=== PATIENT | male | born 1935 | race Caucasian/White ===

== ENCOUNTER 2017-12-30 08:39 | Emergency (ER) | payer MEDICARE, OTHER ==
[~2017-12-30] VITALS: Ht 175.3 cm; Wt 68.0 kg
[~2017-12-30 08:39] MED LIST: ALLO100T PO; CARV3.12 PO; CEPH500C3 PO; DUONSOL2 NEB; FISH1000 PO; GLYB1TAB50 PO; MACR100C PO; NITR0.4S SL; OMEP20TA OR; PROS5TAB2 PO; PYRI200T4 PO; SIMV40TA PO; TAMS0.4C67 PO
[2017-12-30 08:43] VITALS: BP 147/69; PULSE 71; RESP 22; TEMP 97.5; O2SAT 98
[2017-12-30] MEDS ORDERED: SODIUM CHLORIDE 0.9% FLUSH 10 ML FLUSH IVF PRN (09:00)
[2017-12-30] MEDS ORDERED: methylPREDNISolone SOD SUCC 125 MG/2 ML VIAL IV PUSH ONE (09:00)
--- NOTE | 2017-12-30 09:08 | PD ---
HPI Chief Complaint: Cold / Flu Symptoms Time Seen by Provider: 08:59 Travel History International Travel<30 days: No Contact w/Intl Traveler<30days: No Traveled to known affect area: No History of Present Illness HPI The patient is a 82-year-old male who presents to the emergency department for shortness of breath and cough of 3 days' duration. The patient notes a productive cough producing brown sputum for last 3 days which shortness of breath and wheezing. The patient does have a history of bronchitis and pneumonia. The patient has a remote history of lung carcinoma and underwent partial resection of the right upper lung in the . He quit smoking 30 years ago. He notes subjective fevers and occasional diarrhea but denies any nausea, vomiting, or abdominal pain. He does have a history of pacemaker placement, hypertension, and peripheral vascular disease. The patient is followed by his residential worker, Dr. Akshat Harry, his carpenter assistant installer Dr. Horan, and his primary physician. The patient's symptoms are mild to moderate, there are no current alleviating or exacerbating factors. He denies any diffuse myalgias, arthralgias, or lower extremity edema. He denies any history of pulmonary embolism or DVT. PFSH Past Medical History Hx Anticoagulant Therapy: Yes (BABY ASA DAILY) Atrial Fibrillation: Yes Cancer: Yes (LUNG AND BLADDER, throat) Cardiovascular Problems: Yes (CHOL) High Cholesterol: Yes COPD: Yes Coronary Artery Disease: Yes Diabetes: Yes Diminished Hearing: Yes Endocrine: No Gastrointestinal Disorders: No Glaucoma: No Hepatitis: No Hiatal Hernia: No Hypertension: Yes Immune Disorder: No Musculoskeletal: Yes (arthritis) Neurologic: No Reproductive: No Respiratory: Yes (COPD) Thyroid Disease: No Past Surgical History AICD: Yes Cardiac Surgery: Yes (CABG) Coronary Artery Bypass Graft: Yes ("TRIPLE" "ABOUT 8 YEARS AGO.") Endocrine Surgery: No Genitourinary Surgery: Yes (BLADDER BIOPSY) Joint Replacement: No Neurologic Surgery: No Pacemaker: Yes Thoracic Surgery: Yes (RUL) Other Surgery: Yes (RIGHT LUNG LOBECTOMY "ABOUT 8 YEARS AGO.") Social History Alcohol Use: No Tobacco Use: No (QUIT 20 YEARS AGO) Substance Use: No Allergies-Medications (Allergen,Severity, Reaction): Coded Allergies: No Known Allergies (Verified Adverse Reaction, Unknown, 12/30/17) Reported Meds & Prescriptions Reported Meds & Active Scripts Active Pyridium (Phenazopyridine HCl) 200 Mg Tab 200 Mg PO Q8 PRN Keflex (Cephalexin Monohydrate) 500 Mg Cap 500 Mg PO Q8 Reported Macrobid (Nitrofurantoin Macrocrystals) 100 Mg Cap 100 Mg PO BID Carvedilol 3.125 mg (Carvedilol) 3.125 Mg Tab 1 Tab PO BID Allopurinol 100 Mg Tab 100 Mg PO DAILY Nitrostat (Nitroglycerin) 0.4 Mg Subl 0.4 Mg SL PRN 1 TAB SL EVERY 5 MINS X 3 PRN CHEST PAIN Resp: Albuterol 2.5 Mg/Ipratropium 0.5 Mg (Albuterol/Ipratropium) 1 Amp Nebu 1 Amp NEB DAILY Simvastatin 40 Mg Tab 20 Mg PO HS Fish Oil 1,000 Mg Cap 1,200 Mg PO BID Flomax (Tamsulosin HCl) 0.4 Mg Cap 0.4 Mg PO DAILY Proscar (Finasteride) 5 Mg Tab 5 Mg PO DAILY Glyburide 2.5 Mg Tab 2.5 Mg PO BID Omeprazole 20 mg (Omeprazole) 20 Mg Tab 20 Mg OR DAILY Review of Systems Except as stated in HPI: all other systems reviewed are Neg General / Constitutional: Positive: Fever (subjective) HENT: Positive: Congestion, No: Lightheadedness Cardiovascular: No: Chest Pain or Discomfort Respiratory: Positive: Cough, Shortness of Breath, Wheezing Gastrointestinal: Positive: Diarrhea, No: Nausea, Vomiting, Abdominal Pain Musculoskeletal: No: Myalgias, Edema Physical Exam Narrative GENERAL: Awake, alert, pleasant 82-year-old male who appears his stated age and is in no acute respiratory distress. SKIN: Focused skin assessment warm/dry. HEAD: Atraumatic. Normocephalic. EYES: Pupils equal and round. No scleral icterus. No injection or drainage. ENT: No nasal bleeding or discharge. Mucous membranes pink and moist. NECK: Trachea midline. No JVD. CARDIOVASCULAR: Regular rate and rhythm. No murmur appreciated. Heart rate in the 80s. Well-healed scar over the right lateral chest wall and scapular. RESPIRATORY: No accessory muscle use. Few rhonchi noted in the left base. GASTROINTESTINAL: Abdomen soft, non-tender, nondistended. No rebound tenderness. MUSCULOSKELETAL: No obvious deformities. No clubbing. No cyanosis. No edema. NEUROLOGICAL: Awake and alert. No obvious cranial nerve deficits. Motor grossly within normal limits. Normal speech. PSYCHIATRIC: Appropriate mood and affect; insight and judgment normal. Data Data Last Documented VS Vital Signs Date Time Temp Pulse Resp B/P (MAP) Pulse Ox O2 Delivery O2 Flow Rate FiO2 12/30/17 08:43 97.5 71 22 147/69 (95) 98 Orders Orders Complete Blood Count With Diff (12/30/17 08:59) Comprehensive Metabolic Panel (12/30/17 08:59) B-Type Natriuretic Peptide (12/30/17 08:59) Magnesium (Mg) (12/30/17 08:59) Ckmb (Isoenzyme) Profile (12/30/17 08:59) Troponin I (12/30/17 08:59) Influenzae A/B Antigen (12/30/17 08:59) Iv Access Insert/Monitor (12/30/17 08:59) Electrocardiogram (12/30/17 08:59) Ecg Monitoring (12/30/17 08:59) Oximetry (12/30/17 08:59) Oxygen Administration (12/30/17 08:59) Chest, Single Ap (12/30/17 08:59) Sodium Chloride 0.9% Flush (Ns Flush) (12/30/17 09:00) Methylprednisolone So Succ Inj (Solumedr (12/30/17 09:00) Albuterol-Ipratropium Neb (Duoneb Neb) (12/30/17 09:00) Ceftriaxone Inj (Rocephin Inj) (12/30/17 09:45) Azithromycin Inj (Zithromax Inj) (12/30/17 09:45) Lactic Acid (12/30/17 09:36) Ed Discharge Order (12/30/17 10:56) Labs Laboratory Tests Test 12/30/17 09:35 12/30/17 09:50 White Blood Count 11.1 TH/MM3 Red Blood Count 4.40 MIL/MM3 Hemoglobin 11.1 GM/DL Hematocrit 35.6 % Mean Corpuscular Volume 80.8 FL Mean Corpuscular Hemoglobin 25.3 PG Mean Corpuscular Hemoglobin Concent 31.3 % Red Cell Distribution Width 17.6 % Platelet Count 168 TH/MM3 Mean Platelet Volume 8.1 FL Neutrophils (%) (Auto) 85.2 % Lymphocytes (%) (Auto) 4.2 % Monocytes (%) (Auto) 10.1 % Eosinophils (%) (Auto) 0.4 % Basophils (%) (Auto) 0.1 % Neutrophils # (Auto) 9.5 TH/MM3 Lymphocytes # (Auto) 0.5 TH/MM3 Monocytes # (Auto) 1.1 TH/MM3 Eosinophils # (Auto) 0.0 TH/MM3 Basophils # (Auto) 0.0 TH/MM3 CBC Comment DIFF FINAL Differential Comment Blood Urea Nitrogen 19 MG/DL Creatinine 1.20 MG/DL Random Glucose 180 MG/DL Total Protein 7.4 GM/DL Albumin 3.4 GM/DL Calcium Level 8.3 MG/DL Magnesium Level 2.2 MG/DL Alkaline Phosphatase 69 U/L Aspartate Amino Transf (AST/SGOT) 9 U/L Alanine Aminotransferase (ALT/SGPT) 21 U/L Total Bilirubin 1.2 MG/DL Sodium Level 139 MEQ/L Potassium Level 4.2 MEQ/L Chloride Level 106 MEQ/L Carbon Dioxide Level 23.2 MEQ/L Anion Gap 10 MEQ/L Estimat Glomerular Filtration Rate 58 ML/MIN Total Creatine Kinase 44 U/L Troponin I 0.02 NG/ML B-Type Natriuretic Peptide 1169 PG/ML Lactic Acid Level 2.5 mmol/L MDM Medical Decision Making Medical Screen Exam Complete: Yes Emergency Medical Condition: Yes Medical Record Reviewed: Yes Interpretation(s) EKG reveals electronic ventricular pacemaker. No further analysis noted. Last Impressions Chest X-Ray 12/30/17 0859 Signed Impressions: Service Date/Time: Saturday, December 30, 2017 09:02 - CONCLUSION: 1. Patchy right basilar airspace disease most characteristic of bronchopneumonia or aspiration with small right effusion. Cardiomegaly with pacer leads as above. Pablito Langston MD Date/Time Source Procedure Growth Status 12/30/17 09:38 Nasal Aspirate Influenza Types A,B Antigen (GUDELIA) - Final NEGATIVE FOR FLU A AND B ANTIGEN.... Complete Laboratory Tests Test 12/30/17 09:35 12/30/17 09:50 White Blood Count 11.1 TH/MM3 Red Blood Count 4.40 MIL/MM3 Hemoglobin 11.1 GM/DL Hematocrit 35.6 % Mean Corpuscular Volume 80.8 FL Mean Corpuscular Hemoglobin 25.3 PG Mean Corpuscular Hemoglobin Concent 31.3 % Red Cell Distribution Width 17.6 % Platelet Count 168 TH/MM3 Mean Platelet Volume 8.1 FL Neutrophils (%) (Auto) 85.2 % Lymphocytes (%) (Auto) 4.2 % Monocytes (%) (Auto) 10.1 % Eosinophils (%) (Auto) 0.4 % Basophils (%) (Auto) 0.1 % Neutrophils # (Auto) 9.5 TH/MM3 Lymphocytes # (Auto) 0.5 TH/MM3 Monocytes # (Auto) 1.1 TH/MM3 Eosinophils # (Auto) 0.0 TH/MM3 Basophils # (Auto) 0.0 TH/MM3 CBC Comment DIFF FINAL Differential Comment Blood Urea Nitrogen 19 MG/DL Creatinine 1.20 MG/DL Random Glucose 180 MG/DL Total Protein 7.4 GM/DL Albumin 3.4 GM/DL Calcium Level 8.3 MG/DL Magnesium Level 2.2 MG/DL Alkaline Phosphatase 69 U/L Aspartate Amino Transf (AST/SGOT) 9 U/L Alanine Aminotransferase (ALT/SGPT) 21 U/L Total Bilirubin 1.2 MG/DL Sodium Level 139 MEQ/L Potassium Level 4.2 MEQ/L Chloride Level 106 MEQ/L Carbon Dioxide Level 23.2 MEQ/L Anion Gap 10 MEQ/L Estimat Glomerular Filtration Rate 58 ML/MIN Total Creatine Kinase 44 U/L Troponin I 0.02 NG/ML B-Type Natriuretic Peptide 1169 PG/ML Lactic Acid Level 2.5 mmol/L Differential Diagnosis Differential diagnosis includes bronchitis, pneumonia, pulmonary edema, congestive heart failure, acute coronary syndrome, pleural effusion, influenza, viral syndrome, deconditioning, cardiomyopathy. Narrative Course IV was established, labs are drawn and sent, and the patient was placed on cardiac telemetry monitoring and continuous pulse oximetry monitoring. EKG was ordered and interpreted. Chest x-rays obtained. The patient was administered Solu-Medrol 125 mg intravenously and duo nebs. The patient's BNP was elevated at 1169, lactic acid mildly elevated at 2.5, troponin 0.02. BUN was slightly elevated and 19. Chest x-ray does reveal right bronchopneumonia small pleural effusion. BNP is elevated, patient has had an elevated BNP greater than 1000 pounds, 2010 when the EMR was reviewed. The patient was reevaluated at 10:52 AM. The patient's symptoms have improved. I did have a discussion with the patient regarding the elevated BNP and possible CHF not seen on x-ray versus chronic cardiomyopathy. He does have symptoms consistent with pneumonia. I had a discussion with the patient and discussed 23 hour observation, I offered 23 hour observation for IV steroids and nebulizers. However, the patient states he has a nebulizer at home. The patient would prefer to try outpatient treatment, I believe this is reasonable as he is not oxygen dependent at this time and O2 sat is 98%. I did have a discussion regarding when to return including increasing symptoms, inability to tolerate medications at home, patient is agreeable to return if these symptoms persist or worsen. Diagnosis Primary Impression: Bronchopneumonia Additional Impression: Dyspnea Qualified Codes: R06.00 - Dyspnea, unspecified Patient Instructions: General Instructions Additional Instructions: please provide the patient a copy of his x-ray results and lab results at discharge. Medications as directed. Return if symptoms worsen or progress. Follow-up with your primary physician and residential worker. Med/Other Pt SpecificInfo: Prescription(s) given Scripts Azithromycin (Zithromax Z-Estuardo) 250 Mg Dspk 250 MG PO DIRECTED for Infection, #1 DSPK 0 Refills 500 MG (2 tabs) day 1, then 1 tab days 2-5. Prov: Tato August MD 12/30/17 Albuterol Neb (Albuterol Neb) 2.5 Mg/3 Ml Neb 2.5 MG NEB Q4HR NEB Y for SHORTNESS OF BREATH, #60 NEBULE 0 Refills Prov: Tato August MD 12/30/17 Prednisone (Prednisone) 20 Mg Tab 40 MG PO DAILY for 5 Days, #10 TAB 0 Refills Take 40 mg (2 tablets) daily for 5 days Prov: Tato August MD 12/30/17 Disposition: 01 DISCHARGE HOME Condition: Stable Tato August MD Dec 30, 2017 09:08
[2017-12-30] MEDS: RESP: ALBUTEROL 2.5 MG/IPRATROPIUM 0.5 MG NEB (SCH) INH (09:13)
--- NOTE | 2017-12-30 09:29 | RADRPT ---
EXAM DATE/TIME: 12/30/2017 09:02 [facility] COMPARISON: No previous studies available for comparison. INDICATIONS : Shortness of breath. MEDICAL HISTORY : Hypertension. Chronic obstructive pulmonary disease. Diabetes mellitus type II. Coronary artery d isease. Lung cancer. Bladder cancer. Afib. SURGICAL HISTORY : Pacemaker. CABG. Right lobectomy. Defibrillator. ENCOUNTER: Initial ACUITY: 1 day PAIN SCORE: 0/10 LOCATION: Bilateral chest FINDINGS: A single view of the chest demonstrates a patchy right basilar airspace disease with small right effu keyana. Differential diagnosis includes bronchopneumonia with parapneumonic effusion. Minimal left basi lar scarring. Pacer leads overlie right atrium, right ventricle and coronary sinus. Previous sternoto my. No pneumothorax. CONCLUSION: 1. Patchy right basilar airspace disease most characteristic of bronchopneumonia or aspiration with s mall right effusion. Cardiomegaly with pacer leads as above. Pablito Langston MD on December 30, 2017 at 9:22 Board Certified Radiologist. This report was verified electronically.
[2017-12-30 09:35] VITALS: BP 116/70; PULSE 80; RESP 16; TEMP 97.5; O2SAT 97; O2SAT 98
[2017-12-30] MEDS ORDERED: cefTRIAXone INJ 1,000 MG in SODIUM CHLORIDE 0.9% INJ 100 ML IV ONE (09:45)
[2017-12-30] MEDS ORDERED: AZITHROMYCIN INJ 500 MG in SODIUM CHLOR 0.9% 250 ML INJ 250 ML IV ONE (09:45)
[2017-12-30 10:06] LABS: AUTOMATED NEUTROPHIL # 9.5 TH/MM3 (1.8-7.7); BASOPHIL % 0.1 % (0.0-2.0); EOSINOPHIL % 0.4 % (0.0-4.0); HEMATOCRIT 35.6 % (39.0-51.0); HEMOGLOBIN 11.1 GM/DL (13.0-17.0); LYMPH % 4.2 % (9.0-44.0); LYMPHOCYTE # 0.5 TH/MM3 (1.0-4.8); MEAN CELL VOLUME 80.8 FL (80.0-100.0); MEAN CORPUSCULAR HEMOGLOBIN 25.3 PG (27.0-34.0); MEAN CORPUSCULAR HGB CONC 31.3 % (32.0-36.0); MEAN PLATELET VOLUME 8.1 FL (7.0-11.0); MONO % 10.1 % (0.0-8.0); MONOCYTE # 1.1 TH/MM3 (0-0.9); NEUT % 85.2 % (16.0-70.0); PLATELET COUNT 168 TH/MM3 (150-450); RED CELL DISTRIBUTION WIDTH 17.6 % (11.6-17.2); WHITE BLOOD COUNT 11.1 TH/MM3 (4.0-11.0)
[2017-12-30 10:08] LABS: CHLORIDE 106 MEQ/L (98-107); SODIUM (NA) 139 MEQ/L (136-145)
[2017-12-30 10:14] LABS: ALBUMIN 3.4 GM/DL (3.4-5.0); BICARBONATE 23.2 MEQ/L (21.0-32.0); CALCIUM 8.3 MG/DL (8.5-10.1); MAGNESIUM 2.2 MG/DL (1.5-2.5)
[2017-12-30 10:15] LABS: GLUCOSE,RANDOM 180 MG/DL (74-106)
[2017-12-30 10:16] LABS: BLOOD UREA NITROGEN 19 MG/DL (7-18)
[2017-12-30 10:18] LABS: AST (GOT) 9 U/L (15-37); GLOMERULAR FILTRATION RATE 58 ML/MIN (>89)
[2017-12-30 10:19] LABS: TOTAL PROTEIN 7.4 GM/DL (6.4-8.2)
[2017-12-30 10:21] LABS: ALKALINE PHOSPHATASE 69 U/L (45-117); ALT (GPT) 21 U/L (12-78)
[2017-12-30 10:22] LABS: TOTAL BILIRUBIN ADULT 1.2 MG/DL (0.2-1.0); TROPONIN I 0.02 NG/ML (0.02-0.05)
[2017-12-30 10:59] VITALS: BP 112/68; PULSE 78; RESP 16; O2SAT 98
[2017-12-30] MEDS ORDERED: ZITHTAB PO (10:59)
[2017-12-30] MEDS ORDERED: ALBU0.08 NEB (10:59)
[2017-12-30] MEDS ORDERED: PRED20 PO (10:59)
[2017-12-30 12:15] VITALS: BP 97/64; PULSE 70; RESP 20; O2SAT 98
--- NOTE | 2017-12-30 19:12 | EKG ---
Date Performed: 12/30/2017 Time Performed: 09:10:02 PTAGE: 82 years EKG: ELECTRONIC VENTRICULAR PACEMAKER ABNORMAL RHYTHM ECG PREVIOUS TRACING : 04/27/2015 06.17 Since the previous tracing, no significant change noted DOCTOR: Geovanni Lozano Interpretating Date/Time 12/30/2017 19:09:57
== END 2017-12-30 12:15 | disposition home or self-care (01) ==
LOC: PHED 08:39
DX: J18.0 Bronchopneumonia, unspecified organism (principal); R06.00 Dyspnea, unspecified; I10 Essential (primary) hypertension; I48.91 Unspecified atrial fibrillation; J44.9 Chronic obstructive pulmonary disease, unspecified; I25.10 Atherosclerotic heart disease of native coronary artery without angina pectoris; R94.31 Abnormal electrocardiogram [ECG] [EKG]; Z95.0 Presence of cardiac pacemaker; Z85.118 Personal history of other malignant neoplasm of bronchus and lung
CPT/HCPCS: 71045; 80053; 82550; 83605; 83735; 83880; 84484; 85025; 87804; 93005; 94640; 94664; 96365; 96367; 96375; 99285; J0456; J0696; J2930; J7050

== ENCOUNTER 2018-01-04 05:01 | Inpatient (IN) | payer MEDICARE, OTHER ==
[2018-01-04] VITALS (28 sets, daily range): BP systolic 82–121; BP diastolic 50–70; PULSE 69–74; RESP 14–25; TEMP 93.3–98.9; O2SAT 92–100
[~2018-01-04] VITALS: Ht 175.3 cm; Wt 70.5 kg
[~2018-01-04 05:01] MED LIST changes: +ALBU0.08 NEB; +PRED20 PO; +ZITHTAB PO
[2018-01-04] MEDS ORDERED: PROPOFOL 500 MG/50 ML INJ 50 ML ONE (05:05)
[2018-01-04] MEDS ORDERED: CARV3.125 PO (05:17)
[2018-01-04] MEDS ORDERED: PROS5TAB PO (05:17)
[2018-01-04] MEDS ORDERED: ALLO100T PO (05:17)
[2018-01-04] MEDS ORDERED: TAMS5CAP PO (05:21)
[2018-01-04] MEDS ORDERED: OMEP20TA93 PO (05:21)
[2018-01-04] MEDS ORDERED: NITR0.4S SL (05:21)
[2018-01-04] MEDS ORDERED: GLYB2.5T3 PO (05:21)
[2018-01-04] MEDS ORDERED: SIMV20TA PO (05:21)
[2018-01-04] MEDS ORDERED: FISHCAP4 PO (05:21)
--- NOTE | 2018-01-04 05:33 | PD ---
HPI Chief Complaint: Respiratory Distress Time Seen by Provider: 05:18 Travel History International Travel<30 days: No Contact w/Intl Traveler<30days: No History of Present Illness HPI Patient is an 82-year-old male presents the emergency department for evaluation of impending respiratory failure. He was brought in by EMS and was intubated emergently in the field for a saturation of 60%. According to EMS he was just here yesterday that was diagnosed with pneumonia and had been opted to be treated as an outpatient. Apparently he was recommended for admission but he did not want to stay. According to EMS when they intubated him in the field the patient had significant blood in his oropharynx. 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 He also has a history of partial pneumonectomy on the right upper lobe. Shortly after his arrival his significant other has arrived and states that they went to bed he had been coughing and stating was not feeling as well and he awoke about 4:00 in the morning stating he was having severe trouble breathing. Shortly after that EMS was called and seeing a patient in impending respiratory failure they asked to intubate him and he nodded his head yes. Remainder of his history is limited as he is intubated. PFSH Past Medical History Hx Anticoagulant Therapy: Yes (BABY ASA DAILY) Atrial Fibrillation: Yes Cancer: Yes (LUNG AND BLADDER, throat) Cardiovascular Problems: Yes (CHOL) High Cholesterol: Yes COPD: Yes Coronary Artery Disease: Yes Diabetes: Yes Diminished Hearing: Yes Endocrine: No Gastrointestinal Disorders: No Glaucoma: No Hepatitis: No Hiatal Hernia: No Hypertension: Yes Immune Disorder: No Musculoskeletal: Yes (arthritis) Neurologic: No Reproductive: No Respiratory: Yes (COPD) Thyroid Disease: No Past Surgical History AICD: Yes Cardiac Surgery: Yes (CABG) Coronary Artery Bypass Graft: Yes ("TRIPLE" "ABOUT 8 YEARS AGO.") Endocrine Surgery: No Genitourinary Surgery: Yes (BLADDER BIOPSY) Joint Replacement: No Neurologic Surgery: No Pacemaker: Yes Thoracic Surgery: Yes (RUL) Other Surgery: Yes (RIGHT LUNG LOBECTOMY "ABOUT 8 YEARS AGO.") Social History Alcohol Use: No Tobacco Use: No (QUIT 20 YEARS AGO) Substance Use: No Allergies-Medications (Allergen,Severity, Reaction): Coded Allergies: No Known Allergies (Verified Adverse Reaction, Unknown, 01/04/18) Reported Meds & Prescriptions Reported Meds & Active Scripts Active Albuterol Neb (Albuterol Sulfate) 2.5 Mg/3 Ml Neb 2.5 Mg NEB Q4HR NEB PRN Prednisone 20 Mg Tab 40 Mg PO DAILY 5 Days Take 40 mg (2 tablets) daily for 5 days Reported Entresto (Sacubitril-Valsartan) 24-26 Mg Tab 1 Tab PO BID Bumetanide 1 Mg Tab 1 Mg PO DAILY Omeprazole 20 Mg Tab 20 Mg PO DAILY Nitrostat SL (Nitroglycerin) 0.4 Mg Subl 0.4 Mg SL DIRECTED PRN 1 tablet under the tongue as needed for chest pain. Repeat every 5 minutes for a total of 3 DOSES or call 911 if NO relief. Glyburide 2.5 Mg Tab 2.5 Mg PO BID Take with meals at the same time each day Simvastatin 20 Mg Tab 20 Mg PO DAILY Flomax (Tamsulosin HCl) 0.4 Mg Cap 0.4 Mg PO HS Proscar (Finasteride) 5 Mg Tab 5 Mg PO DAILY Do not crush. Coreg (Carvedilol) 3.125 Mg Tab 3.125 Mg PO BID Allopurinol 100 Mg Tab 100 Mg PO DAILY Review of Systems ROS Limitations: Intubated Physical Exam Narrative GENERAL: Well-developed, elderly male, moving all 4 extremities being bagged to ET tube. SKIN: Focused skin assessment cold and dry. HEAD: Atraumatic. Normocephalic. EYES: Pupils equal and round. No scleral icterus. No injection or drainage. ENT: No nasal bleeding or discharge. Mucous membranes pink and moist. Intubated with 7/2 ET tube. NECK: Trachea midline. No JVD. CARDIOVASCULAR: Regular rate and rhythm. No murmur appreciated. RESPIRATORY: No accessory muscle use. Clear to auscultation. Breath sounds equal bilaterally. GASTROINTESTINAL: Abdomen soft, non-tender, nondistended. Hepatic and splenic margins not palpable. MUSCULOSKELETAL: No obvious deformities. No clubbing. No cyanosis. No edema. NEUROLOGICAL: Awake moving all 4 extremities with fairly nonpurposeful movement. Will not open his eyes to command, will not follow commands. Data Data Last Documented VS Vital Signs Date Time Temp Pulse Resp B/P (MAP) Pulse Ox O2 Delivery O2 Flow Rate FiO2 01/04/18 05:51 18 01/04/18 05:49 96 Auto-Vent 01/04/18 05:22 98.9 73 117/56 (76) 01/04/18 05:20 100 Orders Orders Propofol 500 Mg/50 Ml Inj (Diprivan 500 (01/04/18 05:05) Sepsis Workup Initiated (01/04/18 ) Complete Blood Count With Diff (01/04/18 05:18) Comprehensive Metabolic Panel (01/04/18 05:18) Prothrombin Time / Inr (Pt) (01/04/18 05:18) Act Partial Throm Time (Ptt) (01/04/18 05:18) Lactic Acid Sepsis Protocol (01/04/18 05:18) Magnesium (Mg) (01/04/18 05:18) Phosphorus (Po4) (01/04/18 05:18) Lipase (01/04/18 05:18) Ckmb (Isoenzyme) Profile (01/04/18 05:18) Troponin I (01/04/18 05:18) Urinalysis - C+S If Indicated (01/04/18 05:18) Blood Culture (01/04/18 05:18) Chest, Single Ap (01/04/18 05:18) Blood Glucose (01/04/18 05:18) Ecg Monitoring (01/04/18 05:18) Iv Access Insert/Monitor (01/04/18 05:18) Oximetry (01/04/18 05:18) Oxygen Administration (01/04/18 05:18) Arterial Blood Gas (Abg) (01/04/18 ) Vancomycin Inj (Vancomycin Inj) (01/04/18 05:45) Piperacil-Tazo 4.5 Gm Premix (Zosyn 4.5 (01/04/18 05:45) Allopurinol (Zyloprim) (01/04/18 09:00) Bumetanide (Bumetanide) (01/04/18 09:00) Carvedilol (Coreg) (01/04/18 09:00) Finasteride (Proscar) (01/04/18 09:00) Glyburide (Diabeta) (01/04/18 07:00) Sacubitril-Valsartan 24-26 Mg (Entresto (01/04/18 09:00) Tamsulosin (Flomax) (01/04/18 21:00) Pravastatin (Pravachol) (01/04/18 09:00) Blood Glucose Goal (Criteria) (01/04/18 05:49) Hypoglycemia 70 Mg/Dl Or < (01/04/18 05:49) Notify Dr: Other (01/04/18 05:49) Dextrose 50% In Terry (Vial) Inj (D50w (Vi (01/04/18 06:00) Glucagon Inj (Glucagon Inj) (01/04/18 06:00) Insulin Human Reg Supp Scale (Novolin R (01/04/18 08:00) Admit To Inpatient (01/04/18 ) Code Status (01/04/18 05:49) Vital Signs (Adult) JACOBY.Q1H (01/04/18 05:49) Activity Bed Rest (01/04/18 05:49) Elevate Head Of Bed (01/04/18 05:49) Neuro Checks . ORDERED (01/04/18 05:49) Intake + Output Q1H (01/04/18 05:49) Sodium Chlor 0.9% 1000 Ml Inj (Ns 1000 M (01/04/18 05:49) Sodium Chloride 0.9% Flush (Ns Flush) (01/04/18 06:00) Sodium Chloride 0.9% Flush (Ns Flush) (01/04/18 09:00) Acetaminophen (Tylenol) (01/04/18 06:00) Famotidine Inj (Pepcid Inj) (01/04/18 09:00) Ondansetron Inj (Zofran Inj) (01/04/18 06:00) Temazepam (Restoril) (01/04/18 06:00) Albuterol-Ipratropium Neb (Duoneb Neb) (01/04/18 08:00) Albuterol-Ipratropium Neb (Duoneb Neb) (01/04/18 06:00) Complete Blood Count With Diff (01/05/18 04:00) Comprehensive Metabolic Panel (01/05/18 04:00) Troponin I (01/04/18 05:49) Troponin I (01/04/18 11:49) Act Partial Throm Time (Ptt) (01/05/18 04:00) Prothrombin Time / Inr (Pt) (01/05/18 04:00) Magnesium (Mg) (01/05/18 04:00) Phosphorus (Po4) (01/05/18 04:00) Lactic Acid (01/05/18 04:00) Blood Culture (01/04/18 05:49) Sputum Culture And Gram Stain (01/04/18 05:49) Chest, Single Ap (01/05/18 ) Electrocardiogram (01/04/18 05:49) Electrocardiogram (01/04/18 11:49) Pt Request For Service (01/04/18 05:49) Farm Equipment Service Technician / Telemetry JACOBY.Q8H (01/04/18 05:49) Heparin Inj (Heparin Inj) (01/04/18 06:00) Scd Bilateral/Knee High JACOBY.BID (01/04/18 05:49) [place] Bilateral/Knee High JACOBY.QSHIFT (01/04/18 05:49) ^ Initiate Protocol (01/04/18 05:49) Instruction (01/04/18 05:49) [facility] (01/04/18 06:00) Chlorhexidine 2% Cloth (Chlorhexidine 2% (01/05/18 04:00) Chlorhexidine 2% Cloth (Chlorhexidine 2% (01/04/18 06:00) Mrsa Pcr Surveillance (01/04/18 05:49) Docusate Sodium-Senna (Azra-Colace) (01/04/18 09:00) Magnesium Hydroxide Liq (Milk Of Magnesi (01/04/18 06:00) Sennosides (Senokot) (01/04/18 06:00) Bisacodyl Supp (Dulcolax Supp) (01/04/18 06:00) Lactulose Liq (Lactulose Liq) (01/04/18 06:00) Piperacil-Tazo 4.5 Gm Premix (Zosyn 4.5 (01/04/18 12:00) Vancomycin Consult Pharmacy (Vancomycin (01/04/18 06:00) Methylprednisolone So Succ Inj (Solumedr (01/04/18 06:00) Oseltamivir (Tamiflu) (01/04/18 09:00) Inpatient Certification (01/04/18 ) Admit Order (Ed Use Only) (01/04/18 ) Labs Laboratory Tests Test 01/04/18 05:20 01/04/18 05:30 01/04/18 05:50 Urine Color YELLOW Urine Turbidity CLEAR Urine pH 5.5 Urine Specific [place] 1.015 Urine Protein TRACE mg/dL Urine Glucose (UA) 300 mg/dL Urine Ketones NEG mg/dL Urine Occult Blood NEG Urine Nitrite NEG Urine Bilirubin NEG Urine Urobilinogen LESS THAN 2.0 MG/DL Urine Leukocyte Esterase NEG Urine RBC 1 /hpf Urine WBC 1 /hpf Urine Squamous Epithelial Cells <1 /hpf Urine Hyaline Casts 12 /lpf Urine Mucus FEW /lpf Microscopic Urinalysis Comment CATH-CULT NOT IND White Blood Count 22.3 TH/MM3 Red Blood Count 4.96 MIL/MM3 Hemoglobin 12.2 GM/DL Hematocrit 40.1 % Mean Corpuscular Volume 80.9 FL Mean Corpuscular Hemoglobin 24.7 PG Mean Corpuscular Hemoglobin Concent 30.5 % Red Cell Distribution Width 18.8 % Platelet Count 278 TH/MM3 Mean Platelet Volume 7.9 FL Neutrophils (%) (Auto) 88.3 % Lymphocytes (%) (Auto) 7.9 % Monocytes (%) (Auto) 3.5 % Eosinophils (%) (Auto) 0.2 % Basophils (%) (Auto) 0.1 % Neutrophils # (Auto) 19.7 TH/MM3 Lymphocytes # (Auto) 1.8 TH/MM3 Monocytes # (Auto) 0.8 TH/MM3 Eosinophils # (Auto) 0.0 TH/MM3 Basophils # (Auto) 0.0 TH/MM3 CBC Comment DIFF FINAL Differential Comment Prothrombin Time 12.2 SEC Prothromb Time International Ratio 1.2 RATIO Activated Partial Thromboplast Time 22.1 SEC Blood Urea Nitrogen 29 MG/DL Creatinine 1.46 MG/DL Random Glucose 239 MG/DL Total Protein 6.8 GM/DL Albumin 3.4 GM/DL Calcium Level 9.0 MG/DL Phosphorus Level 4.8 MG/DL Magnesium Level 2.4 MG/DL Alkaline Phosphatase 133 U/L Aspartate Amino Transf (AST/SGOT) 25 U/L Alanine Aminotransferase (ALT/SGPT) 60 U/L Total Bilirubin 0.7 MG/DL Sodium Level 138 MEQ/L Potassium Level 4.0 MEQ/L Chloride Level 101 MEQ/L Carbon Dioxide Level 21.6 MEQ/L Anion Gap 15 MEQ/L Estimat Glomerular Filtration Rate 46 ML/MIN Lactic Acid Level 6.3 mmol/L Total Creatine Kinase 70 U/L Troponin I 0.04 NG/ML Lipase 502 U/L Blood Gas Puncture Site RT FEMORAL Blood Gas Patient Temperature 98.6 Blood Gas HCO3 20 mmol/L Blood Gas Base Excess -3.1 mmol/L Blood Gas Oxygen Saturation 97 % Arterial Blood pH 7.43 Arterial Blood Partial Pressure CO2 31 mmHg Arterial Blood Partial Pressure O2 135 mmHG Arterial Blood Oxygen Content 15.9 Vol % Arterial Blood Carboxyhemoglobin 1.3 % Arterial Blood Methemoglobin 0.4 % Blood Gas Hemoglobin 11.4 G/DL Oxygen Delivery Device VENTILATOR Blood Gas Ventilator Setting Blood Gas Inspired Oxygen 100 % MDM Medical Decision Making Medical Screen Exam Complete: Yes Emergency Medical Condition: Yes Differential Diagnosis Pneumonia, sepsis, hypoxic respiratory failure, hypercapnic respiratory failure , aspiration, blood aspiration Narrative Course Patient was room to the emergency department, initial saturations difficult to obtain as his fingers are fairly cold, were able to confirm upset with bag-valve -mask in the 80s, he was placed on vent and initial for 10 of inspiratory pressure 5 of PEEP with 100% FiO2, he demanded as much as 14 of inhibitory pressure with 10 of PEEP and 100% FiO2 to get his saturations up to 98%. He certainly has ards by definition on his ABG. No significant hypercapnia. The patient chest x-ray does show that he is having improving aeration in the prior pneumonia seen in the right lower lung field, there is significant new infiltration of the left lung which appears to encompass both the upper and lower lung. He does have lactic acidemia with a lactic acid of 6. White count is 23,000 left shift, this meets criteria for severe sepsis bordering on septic shock. 30 cc/kg bolus was started, vancomycin and Zosyn. Blood cultures drawn and sent. Initially blood pressure is normal even hypertensive, had to have multiple doses of propofol which dropped his blood pressure down lowest map was 66. Fluid resuscitation still in process this is not requiring pressors at this time. NG tube was placed in this patient's airway was suctioned and no blood was removed from suctioning the patient while he was in the emergency department. His significant other was updated, I tried to explain that he is very sick but I do not think she has a full grasp of his illness at this time. She states that she has health care surrogate seen by his living well however she cannot produce these papers now we do not have them on file. I have asked her after she speaks with the steel rigger this morning to try and find these papers at home. Patient is significantly ill discussed with Dr. Cummings for admission to the ICU. Critical Care Narrative Aggregate critical care time was 35 minutes. Time to perform other separately billable procedures was not included in the critical care time. My time did not include minutes spent treating any other patients simultaneously or on activities that did not directly contribute to the patient's treatment. The services I provided to this patient were to treat and/or prevent clinically significant deterioration that could result in: , disability, organ failure I provided critical care services requiring my management, as noted below: Chart data review, documentation time, medication orders and management, vital sign assessments/reviewing monitor data, ordering and reviewing lab tests, ordering and interpreting/reviewing x-rays and diagnostic studies, care of the patient and discussion of the patient with the admitting physicians. Diagnosis Primary Impression: Severe sepsis Additional Impressions: Pneumonia Acute respiratory failure with hypoxia ARDS (adult respiratory distress syndrome) Admitting Information Admitting Physician Requests: Admit Condition: Critical Shahriar Yip MD Jan 04, 2018 05:33
[2018-01-04] MEDS ORDERED: SACU1TAB PO (05:42)
[2018-01-04] MEDS ORDERED: BUME1TAB PO (05:42)
[2018-01-04] MEDS ORDERED: PIPERACIL-TAZO 4.5 GM PREMIX 100 ML IV ONE (05:45)
[2018-01-04] MEDS ORDERED: VANCOMYCIN INJ 1,000 MG in SODIUM CHLOR 0.9% 250 ML INJ 250 ML IV ONE (05:45)
--- NOTE | 2018-01-04 05:45 | HHI.HP ---
HPI Service Critical Care Medicine Primary Care Physician Non-Staff Admission Diagnosis Diagnosis: Travel History International Travel<30 Days: No Contact w/Intl Traveler <30 Da: No Traveled to Known Affected Are: No History of Present Illness 82-year-old gentleman who was seen a few days ago at [place] emergency department, with complaints of respiratory distress, diagnosed with pneumonia, at that time he improved and didn't want to be hospitalized and was discharged , returns today with acute respiratory failure, and worsening pneumonia. Per EMT report his O2 sats at home were in 60s and he was intubated in the field for acute respiratory failure. Review of Systems ROS Unobtainable patient sedated and intubated Past Family Social History Allergies: Coded Allergies: No Known Allergies (Verified Adverse Reaction, Unknown, 01/04/18) Past Medical History COPD Lung cancer status post right upper lobectomy Laryngeal cancer - currently undergoing radiation therapy History of bladder cancer Diabetes mellitus Coronary artery disease status post CABG Hypertension Atrial fibrillation Congestive heart failure Status postcardiac ablation Past Surgical History AICD pacemaker and lobectomy Reported Medications Reported Meds & Active Scripts Active Albuterol Neb (Albuterol Sulfate) 2.5 Mg/3 Ml Neb 2.5 Mg NEB Q4HR NEB PRN Prednisone 20 Mg Tab 40 Mg PO DAILY 5 Days Take 40 mg (2 tablets) daily for 5 days Reported Entresto (Sacubitril-Valsartan) 24-26 Mg Tab 1 Tab PO BID Bumetanide 1 Mg Tab 1 Mg PO DAILY Omeprazole 20 Mg Tab 20 Mg PO DAILY Nitrostat SL (Nitroglycerin) 0.4 Mg Subl 0.4 Mg SL DIRECTED PRN 1 tablet under the tongue as needed for chest pain. Repeat every 5 minutes for a total of 3 DOSES or call 911 if NO relief. Glyburide 2.5 Mg Tab 2.5 Mg PO BID Take with meals at the same time each day Simvastatin 20 Mg Tab 20 Mg PO DAILY Flomax (Tamsulosin HCl) 0.4 Mg Cap 0.4 Mg PO HS Proscar (Finasteride) 5 Mg Tab 5 Mg PO DAILY Do not crush. Coreg (Carvedilol) 3.125 Mg Tab 3.125 Mg PO BID Allopurinol 100 Mg Tab 100 Mg PO DAILY Active Ordered Medications Current Medications Medications (Trade) Dose Ordered Sig/Yaakov Route PRN Reason Start Time Stop Time Status Last Admin Dose Admin Allopurinol (Zyloprim) 100 mg DAILY PO 01/04/18 09:00 Carvedilol (Coreg) 3.125 mg BID PO 01/04/18 09:00 Finasteride (Proscar) 5 mg DAILY PO 01/04/18 09:00 Glyburide (Diabeta) 2.5 mg BIDAC PO 01/04/18 07:00 Sacubitril/ Valsartan (Entresto 24-26 Mg) 1 tab BID PO 01/04/18 09:00 Tamsulosin HCl (Flomax) 0.4 mg HS PO 01/04/18 21:00 Pravastatin Sodium (Pravachol) 40 mg DAILY PO 01/04/18 09:00 Dextrose (D50w (Vial) Inj) 50 ml UNSCH PRN IV PUSH HYPOGLYCEMIA-SEE COMMENTS 01/04/18 06:00 Glucagon (Glucagon Inj) 1 mg UNSCH PRN OTHER HYPOGLYCEMIA-SEE COMMENTS 01/04/18 06:00 Insulin Human Regular (NovoLIN R SUPPLEMENTAL SCALE) 1 ACHS SLIDING SCALE SQ 01/04/18 08:00 Sodium Chloride 1,000 ml @ 154 mls/hr Q6H30M IV 01/04/18 05:49 Sodium Chloride (NS Flush) 2 ml UNSCH PRN IV FLUSH FLUSH AFTER USING IV ACCESS 01/04/18 06:00 Sodium Chloride (NS Flush) 2 ml BID IV FLUSH 01/04/18 09:00 Acetaminophen (Tylenol) 650 mg Q6H PRN PO PAIN 1-10 AND/OR FEVER >101F 01/04/18 06:00 Famotidine (Pepcid Inj) 20 mg Q12HR IV PUSH 01/04/18 09:00 Ondansetron HCl (Zofran Inj) 4 mg Q6H PRN IV PUSH NAUSEA OR VOMITING 01/04/18 06:00 Temazepam (Restoril) 15 mg HS PRN PO INSOMNIA 01/04/18 06:00 Albuterol/ Ipratropium (Duoneb Neb) 1 ampule Q4HR NEB INH 01/04/18 08:00 Albuterol/ Ipratropium (Duoneb Neb) 1 ampule Q2HR NEB PRN INH WHEEZING 01/04/18 06:00 Heparin Sodium (Porcine) (Heparin Inj) 5,000 units Q8H SQ 01/04/18 06:00 01/04/18 06:24 Miscellaneous Information 1 [id number] XX 01/04/18 06:00 Chlorhexidine Gluconate (Chlorhexidine 2% Cloth) 3 pack Taper DAILY@04 TOP 01/05/18 04:00 01/01/19 03:59 Chlorhexidine Gluconate (Chlorhexidine 2% Cloth) 3 pack UNSCH PRN TOP HYGIENIC CARE 01/04/18 06:00 Senna/Docusate Sodium (Azra-Colace) 1 tab BID PO 01/04/18 09:00 Magnesium Hydroxide (Milk Of Magnesia Liq) 30 ml Q12H PRN PO Mild constipation 01/04/18 06:00 Sennosides (Senokot) 17.2 mg Q12H PRN PO Moderate constipation 01/04/18 06:00 Bisacodyl (Dulcolax Supp) 10 mg DAILY PRN RECTAL SEVERE CONSITIPATION/ IF NPO 01/04/18 06:00 Lactulose (Lactulose Liq) 30 ml DAILY PRN PO SEVERE CONSITIPATION/ IF PO 01/04/18 06:00 Piperacillin Sod/ Tazobactam Sod 100 ml @ 200 mls/hr Q6H IV 01/04/18 12:00 Pharmacy Profile Note 0 ml @ 0 mls/hr UNSCH OTHER 01/04/18 06:00 Methylprednisolone Sodium Succinate (SoluMEDROL INJ) 40 mg Q12H IV PUSH 01/04/18 06:00 01/04/18 06:23 Oseltamivir Phosphate (Tamiflu) 75 mg BID PO 01/04/18 09:00 01/09/18 08:59 Azithromycin 500 mg/Sodium Chloride 250 ml @ 250 mls/hr Q24H IV 01/04/18 08:00 Sodium Chloride 1,000 ml @ 999 mls/hr BOLUS ONCE IV 01/04/18 06:15 01/04/18 07:15 01/04/18 06:25 Sodium Chloride 1,000 ml @ 999 mls/hr BOLUS ONCE IV 01/04/18 06:15 01/04/18 07:15 01/04/18 06:26 Sodium Chloride 500 ml @ 500 mls/hr BOLUS ONCE IV 01/04/18 06:15 01/04/18 07:14 01/04/18 06:26 Propofol 100 ml @ 0 mls/hr TITRATE PRN IV SEDATION 01/04/18 06:30 01/04/18 06:30 Family History No family history significant of early coronary artery disease or malignancy Social History Patient quit smoking 20 years ago, he drinks occasionally beer, no history of illicit drug abuse Physical Exam Vital Signs Vital Signs Date Time Temp Pulse Resp B/P (MAP) Pulse Ox O2 Delivery O2 Flow Rate FiO2 01/04/18 05:22 98.9 73 20 117/56 (76) 98 01/04/18 05:20 93 100 Physical Exam GENERAL: Elderly gentleman sedated and intubated in moderate respiratory distress SKIN: Warm and dry. HEAD: Normocephalic. EYES: No scleral icterus. No injection or drainage. NECK: Supple, trachea midline. No JVD or lymphadenopathy. CARDIOVASCULAR: Regular rate and rhythm without murmurs, gallops, or rubs. RESPIRATORY: Breath sounds equal bilaterally. No accessory muscle use. GASTROINTESTINAL: Abdomen soft, non-tender, nondistended. MUSCULOSKELETAL: No cyanosis, or edema. BACK: Nontender without obvious deformity. NEURO EXAM: GCS: M 5V tE3 Mental Status: The patient is sedated and intubated Laboratory Laboratory Tests Test 01/04/18 05:20 01/04/18 05:30 Date/Time Source Procedure Growth Status 01/04/18 05:25 Blood Peripheral Aerobic Blood Culture Pending Received 01/04/18 05:25 Blood Peripheral Anaerobic Blood Culture Pending Received Caprini VTE Risk Assessment Caprini VTE Risk Assessment: Mod/High Risk (score >= 2) Caprini Risk Assessment Model Point Value = 1 Point Value = 2 Point Value = 3 Point Value = 5 Age 41-60 Minor surgery BMI > 25 kg/m2 Swollen legs Varicose veins or History of unexplained or recurrent spontaneous Oral contraceptives or hormone replacement Sepsis (< 1 month) Serious lung disease, including pneumonia (< 1 month) Abnormal pulmonary function Acute myocardial infarction Congestive heart failure (< 1 month) History of inflammatory bowel disease Medical patient at bed rest Age 61-74 Arthroscopic surgery Major open surgery (> 45 min) Laparoscopic surgery (> 45 min) Malignancy Confined to bed (> 72 hours) Immobilizing plaster cast Central venous access Age >= 75 History of VTE Family history of VTE Factor V Leiden Prothrombin [id number] Lupus anticoagulant Anticardiolipin antibodies Elevated serum homocysteine Heparin-induced thrombocytopenia Other congenital or acquired thrombophilia Stroke (< 1 month) Elective arthroplasty Hip, pelvis, or leg fracture Acute spinal cord injury (< 1 month) Prophylaxis Regimen Total Risk Factor Score Risk Level Prophylaxis Regimen 0-1 Low Early ambulation 2 Moderate Order ONE of the following: *Sequential Compression Device (SCD) *Heparin 5000 units SQ BID 3-4 Higher Order ONE of the following medications: *Heparin 5000 units SQ TID *Enoxaparin/Lovenox 40 mg SQ daily (WT < 150 kg, CrCl > 30 mL/min) *Enoxaparin/Lovenox 30 mg SQ daily (WT < 150 kg, CrCl > 10-29 mL/min) *Enoxaparin/Lovenox 30 mg SQ BID (WT < 150 kg, CrCl > 30 mL/min) AND/OR *Sequential Compression Device (SCD) 5 or more Highest Order ONE of the following medications: *Heparin 5000 units SQ TID (Preferred with Epidurals) *Enoxaparin/Lovenox 40 mg SQ daily (WT < 150 kg, CrCl > 30 mL/min) *Enoxaparin/Lovenox 30 mg SQ daily (WT < 150 kg, CrCl > 10-29 mL/min) *Enoxaparin/Lovenox 30 mg SQ BID (WT < 150 kg, CrCl > 30 mL/min) AND *Sequential Compression Device (SCD) Assessment and Plan Assessment and Plan Respiratory failure - Continue mechanical ventilation - Vent bundle - DuoNeb scheduled and when necessary - ABG and CXR daily Pneumonia - Underlying structural lung disease - Broad-spectrum antibiotic - Follow-up cultures and urine antigens COPD - DuoNeb scheduled and when necessary - IV Solu-Medrol Coronary artery disease - No signs of acute coronary syndrome - Telemetry - Monitor EKGs and troponin levels Congestive heart failure - No exacerbation - Monitor for fluid overload - CXR daily - Home dose of beta gaye and ARB when blood pressure tolerates DVT GI prophylaxis - Teds SCDs - Subcutaneous heparin - Pepcid Critical Care: The total critical care time was 35 minutes. Time to perform other separately billable procedures was not included in the critical care time. Daryl Cummings MD Jan 04, 2018 5:45 am
[2018-01-04 05:51] LABS: BILIRUBIN, URINE NEG (NEG); BLOOD, URINE NEG (NEG); GLUCOSE,URINE 300 mg/dL (NEG); HYALINE CAST, URINE 12 /lpf (RARE); KETONE, URINE NEG (NEG); MUCUS URINE FEW /lpf (OCC); NITRITE,URINE NEG (NEG); PH, URINE 5.5 (5.0-8.5); SQUAMOUS EPITHELIAL CELL URINE <1 /hpf (0-5); URINE COLOR YELLOW (YELLW/STRAW); URINE LEUKOCYTE ESTERASE NEG (NEG)
[2018-01-04] MEDS ORDERED: AZITHROMYCIN INJ 500 MG in SODIUM CHLOR 0.9% 250 ML INJ 250 ML IV SCH (06:00)
[2018-01-04] MEDS ORDERED: CHLORHEXIDINE GLUCONATE 2 % 1 PACK (2 CLOTHS) TOP PRN (06:00)
[2018-01-04] MEDS ORDERED: SODIUM CHLORIDE 0.9% FLUSH 10 ML FLUSH IV FLUSH PRN (06:00)
[2018-01-04] MEDS ORDERED: GLUCAGON 1 MG/ML VIAL OTHER PRN ×2 (06:00→07:30)
[2018-01-04] MEDS ORDERED: SENNOSIDES 8.6 MG TAB PO PRN (06:00)
[2018-01-04] MEDS ORDERED: ONDANSETRON HCL 4 MG/2 ML VIAL IV PUSH PRN (06:00)
[2018-01-04] MEDS ORDERED: Vancomycin Consult Pharmacy 1 EA OTHER SCH (06:00)
[2018-01-04] MEDS ORDERED: ACETAMINOPHEN 325 MG TAB PO PRN (06:00)
[2018-01-04] MEDS ORDERED: BISACODYL 10 MG SUPP RECTAL PRN (06:00)
[2018-01-04] MEDS ORDERED: MISCELLANEOUS NURSING INFORMATION XX SCH (06:00)
[2018-01-04] MEDS ORDERED: TEMAZEPAM 15 MG CAP PO PRN (06:00)
[2018-01-04] MEDS ORDERED: RESP: ALBUTEROL 2.5 MG/IPRATROPIUM 0.5 MG NEB (PRN) INH (06:00)
[2018-01-04] MEDS ORDERED: LACTULOSE SYRUP 20 GM/30 ML CUP PO PRN (06:00)
[2018-01-04] MEDS ORDERED: MAGNESIUM HYDROXIDE SUSP 30 ML CUP PO PRN (06:00)
[2018-01-04] MEDS ORDERED: DEXTROSE 50% IN WATER 50 ML VIAL(D50) IV PUSH PRN ×2 (06:00→07:30)
--- NOTE | 2018-01-04 06:00 | RADRPT ---
EXAM DATE/TIME: 01/04/2018 05:27 [facility] COMPARISON: CHEST SINGLE AP, December 30, 2017, 9:02. INDICATIONS : Post intubation. MEDICAL HISTORY : Hypertension. Chronic obstructive pulmonary disease. Diabetes mellitus t ype II. Coronary artery disease. Lung cancer. Bladder cancer. Afib. SURGICAL HISTORY : Pacemaker. CABG. Right lobectomy. Defibrillator. ENCOUNTER: Initial ACUITY: 1 day PAIN SCORE: Non-responsive. LOCATION: Bilateral chest FINDINGS: A single view of the chest demonstrates improving aeration in the right lower lobe with developing ai rspace consolidation in the left perihilar distribution. Endotracheal tube appropriately positioned a hansel the maria luisa the nasogastric tube traversing the GE junction and extending off of the image. Heart size is prominent. Left subclavian bipolar pacer/defibrillator remains intact. CONCLUSION: 1. Improving aeration in the right lower lung field. 2. However, there is now developing left perihilar infiltrate. 3. Interval placement of an endotracheal and nasogastric tube. Endotracheal tube appropriately positi on above the maria luisa. Nasogastric tube is seen at the GE junction and extends off the inferior aspect of the image. Ben Lara MD on January 04, 2018 at 5:56 Board Certified Radiologist. This report was verified electronically.
[2018-01-04 06:01] LABS: AUTOMATED NEUTROPHIL # 19.7 TH/MM3 (1.8-7.7); BASOPHIL % 0.1 % (0.0-2.0); EOSINOPHIL % 0.2 % (0.0-4.0); HEMATOCRIT 40.1 % (39.0-51.0); HEMOGLOBIN 12.2 GM/DL (13.0-17.0); INTERNATIONAL NORMALIZED RATIO 1.2 RATIO; LYMPH % 7.9 % (9.0-44.0); LYMPHOCYTE # 1.8 TH/MM3 (1.0-4.8); MEAN CELL VOLUME 80.9 FL (80.0-100.0); MEAN CORPUSCULAR HEMOGLOBIN 24.7 PG (27.0-34.0); MEAN CORPUSCULAR HGB CONC 30.5 % (32.0-36.0); MEAN PLATELET VOLUME 7.9 FL (7.0-11.0); MONO % 3.5 % (0.0-8.0); MONOCYTE # 0.8 TH/MM3 (0-0.9); NEUT % 88.3 % (16.0-70.0); PLATELET COUNT 278 TH/MM3 (150-450); PROTHROMBIN TIME - PATIENT 12.2 SEC (9.8-11.6); RED BLOOD COUNT 4.96 MIL/MM3 (4.50-5.90); RED CELL DISTRIBUTION WIDTH 18.8 % (11.6-17.2); WHITE BLOOD COUNT 22.3 TH/MM3 (4.0-11.0)
[2018-01-04 06:11] LABS: LACTIC ACID SEPSIS PROTOCOL 6.3 mmol/L (0.4-2.0)
[2018-01-04] MEDS ORDERED: SODIUM CHLORID 0.9% 500 ML INJ 500 ML IV ONE (06:15)
[2018-01-04] MEDS ORDERED: SODIUM CHLOR 0.9% 1000 ML INJ 1,000 ML IV ONE ×2 (06:15)
[2018-01-04] MEDS: methylPREDNISolone SOD SUCC 40 MG/1 ML VIAL IV PUSH SCH ×2 (06:23→18:01)
[2018-01-04] MEDS: HEPARIN SODIUM - SQ 10,000 UNITS/ML VIAL SQ SCH ×3 (06:24→20:48)
[2018-01-04 06:25] LABS: ALBUMIN 3.4 GM/DL (3.4-5.0); BICARBONATE 21.6 MEQ/L (21.0-32.0); BLOOD UREA NITROGEN 29 MG/DL (7-18); CHLORIDE 101 MEQ/L (98-107); CREATININE 1.46 MG/DL (0.60-1.30); GLOMERULAR FILTRATION RATE 46 ML/MIN (>89); GLUCOSE,RANDOM 239 MG/DL (74-106); MAGNESIUM 2.4 MG/DL (1.5-2.5); SODIUM (NA) 138 MEQ/L (136-145)
[2018-01-04 06:26] LABS: ALT (GPT) 60 U/L (12-78); AST (GOT) 25 U/L (15-37); PHOSPHORUS 4.8 MG/DL (2.5-4.9)
[2018-01-04] MEDS: glyBURIDE 2.5 MG TAB PO SCH ×2 (06:26→16:00)
[2018-01-04 06:29] LABS: ALKALINE PHOSPHATASE 133 U/L (45-117); TOTAL BILIRUBIN ADULT 0.7 MG/DL (0.2-1.0); TOTAL PROTEIN 6.8 GM/DL (6.4-8.2); TROPONIN I 0.04 NG/ML (0.02-0.05)
[2018-01-04] MEDS ORDERED: PROPOFOL 1000 MG/100 ML INJ 100 ML IV PRN (06:30)
[2018-01-04] MEDS ORDERED: fentaNYL DRIP 250 ML IV PRN ×2 (07:00→11:30)
[2018-01-04] MEDS: MIDAZOLAM 100 MG/100 ML INJ 100 ML IV PRN (07:36)
[2018-01-04] MEDS: INSULIN ASPART SUPPLEMENTAL SCALE SQ SCH ×4 (07:41→20:49)
[2018-01-04] MEDS: SODIUM CHLOR 0.9% 1000 ML INJ 1,000 ML IV SCH ×3 (07:51→20:47)
[2018-01-04] MEDS: AZITHROMYCIN INJ 500 MG in SODIUM CHLOR 0.9% 250 ML INJ 250 ML IV SCH (07:52)
[2018-01-04] MEDS ORDERED: INSULIN NovoLIN REGULAR SUPPLEMENTAL SCALE SQ SCH (08:00)
[2018-01-04] MEDS: CHLORHEXIDINE 0.12% (ORAL KIT) 15 ML CUP MT SCH ×2 (08:00→20:48)
[2018-01-04] MEDS: RESP: ALBUTEROL 2.5 MG/IPRATROPIUM 0.5 MG NEB (SCH) INH ×5 (08:23→23:23)
[2018-01-04] MEDS: ALLOPURINOL 100 MG TAB PO SCH (09:00)
[2018-01-04] MEDS: CARVEDILOL 3.125 MG TAB PO SCH ×2 (09:00→19:30)
[2018-01-04] MEDS ORDERED: BUMETANIDE 1 MG TAB PO SCH (09:00)
[2018-01-04] MEDS: OSELTAMIVIR PHOSPHATE 75 MG CAP PO SCH ×2 (09:00→19:31)
[2018-01-04] MEDS: PRAVASTATIN SOD 40 MG TAB PO SCH (09:00)
[2018-01-04] MEDS: DOCUSATE SODIUM 50 MG/SENNA 8.6 MG TAB PO SCH ×2 (09:00→20:49)
[2018-01-04] MEDS: SACUBITRIL/VALSARTAN 24 MG-26 MG TAB PO SCH ×2 (09:00→21:16)
[2018-01-04] MEDS: FINASTERIDE 5 MG TAB PO SCH (09:00)
[2018-01-04] MEDS: FAMOTIDINE 20 MG/2 ML VIAL IV PUSH SCH ×2 (09:58→20:48)
[2018-01-04] MEDS: SODIUM CHLORIDE 0.9% FLUSH 10 ML FLUSH IV FLUSH SCH ×2 (10:00→20:48)
[2018-01-04] MEDS: PIPERACIL-TAZO 4.5 GM PREMIX 100 ML IV SCH ×2 (12:26→18:02)
--- NOTE | 2018-01-04 12:40 | EKG ---
Date Performed: 01/04/2018 Time Performed: 05:10:14 PTAGE: 82 years EKG: ELECTRONIC VENTRICULAR PACEMAKER ABNORMAL RHYTHM ECG Since PREVIOUS TRACING , no significant change noted PREVIOUS TRACIN12/30/2017 09.10 DOCTOR: Raghav Saenz Interpretating Date/Time 01/04/2018 12:40:15
[2018-01-04 14:09] LABS: CREATININE 1.07 MG/DL (0.60-1.30)
[2018-01-04] MEDS: TAMSULOSIN HCL 0.4 MG CAP PO SCH (20:48)
[2018-01-05] VITALS (40 sets, daily range): BP systolic 72–114; BP diastolic 50–74; PULSE 69; RESP 14–20; TEMP 96.4–99; O2SAT 93–100
[2018-01-05] MEDS: PIPERACIL-TAZO 4.5 GM PREMIX 100 ML IV SCH ×5 (00:19→22:27)
[2018-01-05] MEDS: SODIUM CHLOR 0.9% 1000 ML INJ 1,000 ML IV SCH ×2 (02:51→12:03)
[2018-01-05] MEDS: CHLORHEXIDINE GLUCONATE 2 % 1 PACK (2 CLOTHS) TOP SCH (03:23)
[2018-01-05] MEDS: RESP: ALBUTEROL 2.5 MG/IPRATROPIUM 0.5 MG NEB (SCH) INH ×6 (03:33→23:26)
[2018-01-05] MEDS: glyBURIDE 2.5 MG TAB PO SCH (04:21)
[2018-01-05 05:28] LABS: AUTOMATED NEUTROPHIL # 14.4 TH/MM3 (1.8-7.7); BASOPHIL % 0.2 % (0.0-2.0); HEMATOCRIT 30.8 % (39.0-51.0); HEMOGLOBIN 9.5 GM/DL (13.0-17.0); LYMPH % 1.3 % (9.0-44.0); LYMPHOCYTE # 0.2 TH/MM3 (1.0-4.8); MEAN CELL VOLUME 79.5 FL (80.0-100.0); MEAN CORPUSCULAR HEMOGLOBIN 24.6 PG (27.0-34.0); MEAN CORPUSCULAR HGB CONC 30.9 % (32.0-36.0); MEAN PLATELET VOLUME 8.1 FL (7.0-11.0); MONO % 2.1 % (0.0-8.0); MONOCYTE # 0.3 TH/MM3 (0-0.9); NEUT % 96.4 % (16.0-70.0); PLATELET COUNT 133 TH/MM3 (150-450); RED BLOOD COUNT 3.87 MIL/MM3 (4.50-5.90); RED CELL DISTRIBUTION WIDTH 18.7 % (11.6-17.2); WHITE BLOOD COUNT 14.9 TH/MM3 (4.0-11.0)
[2018-01-05] MEDS: HEPARIN SODIUM - SQ 10,000 UNITS/ML VIAL SQ SCH ×3 (05:32→22:26)
[2018-01-05] MEDS: methylPREDNISolone SOD SUCC 40 MG/1 ML VIAL IV PUSH SCH ×2 (05:32→16:14)
[2018-01-05] MEDS: MIDAZOLAM 100 MG/100 ML INJ 100 ML IV PRN (05:32)
[2018-01-05 05:51] LABS: ALBUMIN 2.2 GM/DL (3.4-5.0); AST (GOT) 15 U/L (15-37); BICARBONATE 21.1 MEQ/L (21.0-32.0); BLOOD UREA NITROGEN 18 MG/DL (7-18); CALCIUM 7.5 MG/DL (8.5-10.1); CHLORIDE 112 MEQ/L (98-107); CREATININE 0.97 MG/DL (0.60-1.30); GLOMERULAR FILTRATION RATE 74 ML/MIN (>89); GLUCOSE,RANDOM 176 MG/DL (74-106); MAGNESIUM 2.1 MG/DL (1.5-2.5); SODIUM (NA) 143 MEQ/L (136-145)
[2018-01-05 05:55] LABS: ALKALINE PHOSPHATASE 77 U/L (45-117); ALT (GPT) 36 U/L (12-78); PHOSPHORUS 3.4 MG/DL (2.5-4.9); RANDOM VANCOMYCIN 4.1 COMMENT; TOTAL BILIRUBIN ADULT 0.9 MG/DL (0.2-1.0); TOTAL PROTEIN 5.1 GM/DL (6.4-8.2)
--- NOTE | 2018-01-05 06:45 | RADRPT ---
EXAM DATE/TIME: 01/05/2018 04:15 [facility] COMPARISON: CHEST SINGLE AP, January 04, 2018, 5:27. INDICATIONS : Shortness of breath, possible pulmonary disease. MEDICAL HISTORY : Hypertension. Chronic obstructive pulmonary disease. Diabetes mellitus type II. CAD Carcinoma nina g SURGICAL HISTORY : Pacemaker. CABG. ENCOUNTER: Subsequent ACUITY: 2 days PAIN SCORE: Non-responsive. LOCATION: Bilateral chest FINDINGS: There is persistent lobar consolidation in the left mid and lower lung with loss of delineation of th e entire left hemidiaphragm. There is also indistinctness and engorgement of the central bronchopulm onary markings of the left side. Right lung is clear. The heart is upper limits normal in size. Ga stric tube and cardiac pacer leads stable. ET tube tip well above the maria luisa. CONCLUSION: Persistent left lower lobe consolidation. Wade Irizarry MD on January 05, 2018 at 6:43 Board Certified Radiologist. This report was verified electronically.
[2018-01-05] MEDS: INSULIN ASPART SUPPLEMENTAL SCALE SQ SCH ×4 (08:00→19:50)
[2018-01-05] MEDS: CARVEDILOL 3.125 MG TAB PO SCH ×2 (09:00→19:50)
[2018-01-05] MEDS: SACUBITRIL/VALSARTAN 24 MG-26 MG TAB PO SCH ×2 (09:00→19:50)
[2018-01-05] MEDS: DOCUSATE SODIUM 50 MG/SENNA 8.6 MG TAB PO SCH ×2 (09:04→19:50)
[2018-01-05] MEDS: ALLOPURINOL 100 MG TAB PO SCH (09:04)
[2018-01-05] MEDS: FINASTERIDE 5 MG TAB PO SCH (09:04)
[2018-01-05] MEDS: AZITHROMYCIN INJ 500 MG in SODIUM CHLOR 0.9% 250 ML INJ 250 ML IV SCH (09:04)
[2018-01-05] MEDS: OSELTAMIVIR PHOSPHATE 75 MG CAP PO SCH ×2 (09:04→19:50)
[2018-01-05] MEDS: PRAVASTATIN SOD 40 MG TAB PO SCH (09:10)
[2018-01-05] MEDS: SODIUM CHLORIDE 0.9% FLUSH 10 ML FLUSH IV FLUSH SCH ×2 (09:10→19:49)
[2018-01-05] MEDS: FAMOTIDINE 20 MG/2 ML VIAL IV PUSH SCH ×2 (09:10→19:50)
[2018-01-05] MEDS: CHLORHEXIDINE 0.12% (ORAL KIT) 15 ML CUP MT SCH ×2 (09:11→19:49)
[2018-01-05] MEDS ORDERED: TERBUTALINE INJ 1 MG/ML AMP SQ PRN (10:45)
[2018-01-05] MEDS ORDERED: PHENYLEPHRINE 40 MG in D5W 500 ML IV PRN (10:45)
--- NOTE | 2018-01-05 11:34 | HHI.CCPN ---
Subjective Remarks/Hospital Course 82-year-old gentleman who was seen a few days ago at [place] emergency department, with complaints of respiratory distress, diagnosed with pneumonia, at that time he improved and didn't want to be hospitalized and was discharged , returns today with acute respiratory failure, and worsening pneumonia. Per EMT report his O2 sats at home were in 60s and he was intubated in the field for acute respiratory failure. Subjective: 01/05: The patient noted to be slightly hypotensive early this a.m. has continued on a PEEP of 10 low dose Stephen-Synephrine initiated. PEEP has been weaned down to 7. Patient's O2 saturation 98%. 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 The patient also received radiation therapy and as a 06/2017 no evidence of disease recurrence. Dr. Gianluca Harry is the flow manager who last follow him as an inpatient. Objective Vital Signs Date Time Temp Pulse Resp B/P (MAP) Pulse Ox O2 Delivery O2 Flow Rate FiO2 01/05/18 11:05 100 40 01/05/18 06:00 69 01/05/18 04:00 99.0 17 96/58 (71) 01/04/18 16:00 Ventilator Intake and Output 01/05/18 01/05/18 01/06/18 08:00 16:00 00:00 Intake Total 1326.9 ml Output Total 650 ml Balance 676.9 ml Result Diagram: 01/05/18 0356 01/05/18 0356 Other Results Laboratory Tests Test 01/04/18 14:00 Blood Gas Puncture Site LT RADIAL Blood Gas Patient Temperature 98.6 Blood Gas HCO3 20 mmol/L (22-26) Blood Gas Base Excess -4.1 mmol/L (-2-2) Blood Gas Oxygen Saturation 98 % (90-100) Arterial Blood pH 7.38 (7.380-7.420) Arterial Blood Partial Pressure CO2 35 mmHg (38-42) Arterial Blood Partial Pressure O2 261 mmHG (61-120) Arterial Blood Oxygen Content 13.7 Vol % (12.0-20.0) Arterial Blood Carboxyhemoglobin 1.2 % (0-4) Arterial Blood Methemoglobin 0.5 % (0-2) Blood Gas Hemoglobin 9.4 G/DL (12.0-16.0) Oxygen Delivery Device VENTILATOR Blood Gas Ventilator Setting Blood Gas Inspired Oxygen 80 % Objective Remarks GENERAL: Elderly gentleman sedated and intubated in moderate respiratory distress SKIN: Warm and dry. HEAD: Normocephalic. EYES: No scleral icterus. No injection or drainage. NECK: Supple, trachea midline. No JVD or lymphadenopathy. CARDIOVASCULAR: Regular rate and rhythm without murmurs, gallops, or rubs. RESPIRATORY: Breath sounds equal bilaterally. No accessory muscle use. GASTROINTESTINAL: Abdomen soft, non-tender, nondistended. MUSCULOSKELETAL: No cyanosis, or edema. BACK: Nontender without obvious deformity. NEURO EXAM: GCS: M 5V tE3 Mental Status: The patient is sedated and intubated A/P Assessment and Plan Respiratory failure - Continue mechanical ventilation, decrease PEEP to5 - Vent bundle - DuoNeb scheduled and when necessary - ABG and CXR daily -01/05-chest x-ray persistent left lower lobe consolidation Pneumonia - Underlying structural lung disease - Broad-spectrum antibiotic - Follow-up cultures and urine antigens COPD - DuoNeb scheduled and when necessary - IV Solu-Medrol Coronary artery disease - No signs of acute coronary syndrome - Telemetry - Monitor EKGs and troponin levels Congestive heart failure - No exacerbation - Monitor for fluid overload - CXR daily - Home dose of beta gaye and ARB when blood pressure tolerates. Hold finasteride secondary to hypotension DVT GI prophylaxis - Teds SCDs - Subcutaneous heparin - Pepcid Critical Care: my billing statement This patient remains critically ill with one or more organ systems which are or may become a threat to life. I have spent in excess of 30 minutes discontinuously in the care and management of this patient. This time is exclusive of procedures, and includes, but is not limited to, evaluation of the patient, review of the medical record, discussions with family, consultants, nursing staff, or respiratory therapy, and documentation in the medical record. Physician Ameena Moreira MD Jan 05, 2018 11:34
[2018-01-05] MEDS: VANCOMYCIN INJ 1,250 MG in SODIUM CHLOR 0.9% 250 ML INJ 250 ML IV SCH (12:28)
[2018-01-05 13:16] LABS: INTERNATIONAL NORMALIZED RATIO 1.3 RATIO; PROTHROMBIN TIME - PATIENT 12.9 SEC (9.8-11.6)
[2018-01-05] MEDS: TAMSULOSIN HCL 0.4 MG CAP PO SCH (22:25)
[2018-01-06] VITALS (24 sets, daily range): BP systolic 102–131; BP diastolic 56–73; PULSE 69; RESP 11–19; TEMP 96.2–98.8; O2SAT 95–100
[2018-01-06] MEDS: CHLORHEXIDINE GLUCONATE 2 % 1 PACK (2 CLOTHS) TOP SCH (04:00)
[2018-01-06] MEDS ORDERED: INSULIN ASPART 1,000 UNITS/10 ML VIAL SQ SCH (04:00)
[2018-01-06] MEDS: RESP: ALBUTEROL 2.5 MG/IPRATROPIUM 0.5 MG NEB (SCH) INH ×5 (04:15→21:20)
[2018-01-06 04:47] LABS: AUTOMATED NEUTROPHIL # 12.6 TH/MM3 (1.8-7.7); BASOPHIL % 0.1 % (0.0-2.0); HEMATOCRIT 31.7 % (39.0-51.0); HEMOGLOBIN 9.7 GM/DL (13.0-17.0); LYMPH % 0.9 % (9.0-44.0); LYMPHOCYTE # 0.1 TH/MM3 (1.0-4.8); MEAN CELL VOLUME 79.7 FL (80.0-100.0); MEAN CORPUSCULAR HEMOGLOBIN 24.4 PG (27.0-34.0); MEAN CORPUSCULAR HGB CONC 30.6 % (32.0-36.0); MEAN PLATELET VOLUME 8.1 FL (7.0-11.0); MONOCYTE # 0.4 TH/MM3 (0-0.9); PLATELET COUNT 143 TH/MM3 (150-450); RED BLOOD COUNT 3.98 MIL/MM3 (4.50-5.90); RED CELL DISTRIBUTION WIDTH 19.3 % (11.6-17.2); WHITE BLOOD COUNT 13.1 TH/MM3 (4.0-11.0)
--- NOTE | 2018-01-06 04:51 | RADRPT ---
EXAM DATE/TIME: 01/06/2018 02:55 [facility] COMPARISON: CHEST SINGLE AP, January 05, 2018, 4:15. INDICATIONS : Short of breath. MEDICAL HISTORY : Hypertension. Chronic obstructive pulmonary disease. Diabetes mellitus type II. CAD Carcinoma lung SURGICAL HISTORY : Pacemaker. CABG. ENCOUNTER: Subsequent ACUITY: 3 days PAIN SCORE: 0/10 LOCATION: Bilateral chest FINDINGS: Moderate patient rotation towards the left. ET tube tip well above the maria luisa. Gastric tube magen es the [id number]. Persistent consolidation left mid and lower lung with loss of delineation of t he entire left hemidiaphragm. Right lung is clear. CONCLUSION: Persistent left mid and lower lung consolidation. Wade Irizarry MD on January 06, 2018 at 4:49 Board Certified Radiologist. This report was verified electronically.
[2018-01-06] MEDS: methylPREDNISolone SOD SUCC 40 MG/1 ML VIAL IV PUSH SCH ×2 (04:57→16:50)
[2018-01-06] MEDS: HEPARIN SODIUM - SQ 10,000 UNITS/ML VIAL SQ SCH ×3 (04:57→20:46)
[2018-01-06] MEDS: PIPERACIL-TAZO 4.5 GM PREMIX 100 ML IV SCH ×2 (04:57→12:57)
[2018-01-06] MEDS: VANCOMYCIN INJ 1,250 MG in SODIUM CHLOR 0.9% 250 ML INJ 250 ML IV SCH (04:57)
[2018-01-06 05:11] LABS: BICARBONATE 22.2 MEQ/L (21.0-32.0); CALCIUM 7.7 MG/DL (8.5-10.1); CREATININE 1.12 MG/DL (0.60-1.30); MAGNESIUM 2.6 MG/DL (1.5-2.5); PHOSPHORUS 2.3 MG/DL (2.5-4.9)
[2018-01-06] MEDS: INSULIN ASPART SUPPLEMENTAL SCALE SQ SCH ×4 (08:00→20:45)
[2018-01-06] MEDS: CHLORHEXIDINE 0.12% (ORAL KIT) 15 ML CUP MT SCH ×2 (08:00→20:44)
[2018-01-06] MEDS: AZITHROMYCIN INJ 500 MG in SODIUM CHLOR 0.9% 250 ML INJ 250 ML IV SCH (08:00)
[2018-01-06] MEDS: PRAVASTATIN SOD 40 MG TAB PO SCH (09:00)
[2018-01-06] MEDS: ALLOPURINOL 100 MG TAB PO SCH (09:00)
[2018-01-06] MEDS: FAMOTIDINE 20 MG/2 ML VIAL IV PUSH SCH ×2 (09:00→20:44)
[2018-01-06] MEDS ORDERED: INSULIN DETEMIR 100 UNITS/ML VIAL SQ SCH (09:00)
[2018-01-06] MEDS: SACUBITRIL/VALSARTAN 24 MG-26 MG TAB PO SCH ×2 (09:00→20:44)
[2018-01-06] MEDS ORDERED: FUROSEMIDE 40 MG/4 ML VIAL IV PUSH ONE (09:00)
[2018-01-06] MEDS: SODIUM CHLORIDE 0.9% FLUSH 10 ML FLUSH IV FLUSH SCH ×2 (09:00→20:44)
[2018-01-06] MEDS: DOCUSATE SODIUM 50 MG/SENNA 8.6 MG TAB PO SCH ×2 (09:00→20:44)
[2018-01-06] MEDS: CARVEDILOL 3.125 MG TAB PO SCH ×2 (09:00→20:44)
[2018-01-06] MEDS: OSELTAMIVIR PHOSPHATE 75 MG CAP PO SCH ×2 (09:00→20:45)
--- NOTE | 2018-01-06 09:09 | HHI.CCPN ---
Subjective Remarks/Hospital Course 82-year-old gentleman who was seen a few days ago at [facility] emergency department, with complaints of respiratory distress, diagnosed with pneumonia, at that time he improved and didn't want to be hospitalized and was discharged , returns today with acute respiratory failure, and worsening pneumonia. Per EMT report his O2 sats at home were in 60s and he was intubated in the field for acute respiratory failure. Subjective: 01/05: The patient noted to be slightly hypotensive early this a.m. has continued on a PEEP of 10 low dose Stephen-Synephrine initiated. PEEP has been weaned down to 7. Patient's O2 saturation 98%. 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 The patient also received radiation therapy and as a 06/2017 no evidence of disease recurrence. Dr. Gianluca Harry is the sales donor recruitment representative who last follow him as an inpatient. 01/06: Hemodynamically stable. Phenylephrine discontinued yesterday afternoon. Patient's medications placed on hold 2/2 hypotension- Entresto, finasteride, and Flomax. All sedation patient awake responding to commands, moving extremities 4. Plan today is to begin CPAP trials. Pulmonology also has been consulted. Objective Vital Signs Date Time Temp Pulse Resp B/P (MAP) Pulse Ox O2 Delivery O2 Flow Rate FiO2 01/06/18 07:36 100 40 01/06/18 06:00 69 01/06/18 04:00 96.9 14 110/62 (78) 01/04/18 16:00 Ventilator Intake and Output 01/06/18 01/06/18 01/07/18 08:00 16:00 00:00 Intake Total 2286.5 ml Output Total 700 ml Balance 1586.5 ml Result Diagram: 01/06/18 0330 01/06/18 0330 Objective Remarks GENERAL: Elderly gentleman sedated and intubated in no distress, following commands SKIN: Warm and dry. HEAD: Normocephalic. EYES: No scleral icterus. No injection or drainage. NECK: Supple, trachea midline. No JVD or lymphadenopathy. CARDIOVASCULAR: Regular rate and rhythm without murmurs, gallops, or rubs. RESPIRATORY: Breath sounds equal bilaterally. Clear to auscultation .No accessory muscle use. GASTROINTESTINAL: Abdomen soft, non-tender, nondistended. MUSCULOSKELETAL: No cyanosis, or edema. BACK: Nontender without obvious deformity. NEURO EXAM: GCS: M 5V tE3 Mental Status: RASS-2 A/P Assessment and Plan Plan by systems: Neurologic: Propofol discontinued 01/05 for sedation Continue Versed and/fentanyl fusions to maintain ventilator synchrony. Transition to Precedex if tolerated to initiate CPAP trials Neurochecks per ICU protocol Tylenol 650 mg every 6 hours when necessary for pain and temperature > 100.5 Respiratory: Pneumonia Acute hypoxemic respiratory failure H/O Left vocal cord lesion squamous cell carcinoma (S/P excision 2010) H/O right lower lobectomy for early stage SCC (2010) S/P radiation therapy for lung carcinoma 01/2011 Maintain O2 sat greater than 92% Ventilator bundle Bronchodilators every 6 hours scheduled and every 2 hours when necessary Chest [id number] left mid and lower lung consolidation Antibiotics see below 2015-PFTs 50-60% function Solu-Medrol IV 40 every 12 Pulmonology [id number] recommendations Begin CPAP trials- 05/24 .40 Cardiovascular: H/O CABG 1996 Hypotension-resolved Coronary artery disease CHF Maintain MAP> 65mmHG Hold Entresto, finasteride, and Flomax in the setting of hypotension. Will resume when clinically indicated Resume ARB when blood pressure is tolerable BNP 2010->1238 today, NGT to monitor Renal: Maintain Haines- patient receiving IV diuretics -- Strict I/Os FEN/GI: Electrolyte derangement Electrolyte replacement per ICU protocol Lasix 40mg x 1 dose today- 6L positive Maintain OGT Continue tube feeds Glucerna-normal residual Heme/ID: Pneumonia ID following- Dr. Clancy 01/04 Blood culture-NGTD 01/04 Sputum culture-NGTD Vancomycin and Zosyn (day 3) Endocrine: Hyperglycemia of critical illness Obtain hemoglobin A1c Levemir 10u BID Glucose monitoring per ICU protocol low dose regimen -- SSI Prophylaxis: GI Prophylaxis Famotidine DVT Prophylaxis -- SCDs Heparin SQ Lines: Peripheral IVs 2. Central line if indicated Dispo: my billing statement This patient remains critically ill with one or more organ systems which are or may become a threat to life. I have spent in excess of 47 minutes discontinuously in the care and management of this patient. This time is exclusive of procedures, and includes, but is not limited to, evaluation of the patient, review of the medical record, discussions with family, consultants, nursing staff, or respiratory therapy, and documentation in the medical record. 01/05- patient's daughter and significant other at bedside, provided medical update. All questions answered. Discussed with RAW HIDE TRIMMER at bedside ([facility]) Physician Ameena Moreira MD Jan 06, 2018 09:09
[2018-01-06] MEDS: MIDAZOLAM 100 MG/100 ML INJ 100 ML IV PRN (10:00)
--- NOTE | 2018-01-06 10:08 | PD.CONS ---
History of Present Illness Service Infectious disease Consult Requested By Dr Sheela De Leon Reason for Consult Evaluate patient with pneumonia and leukocytosis Primary Care Physician Non-Staff Diagnoses: History of Present Illness Patient seen and examined. Records reviewed. Patient is an 82-year-old male, presented initially at the emergency room on December 30 complaining of 3 day history of cough and shortness of breath. He was bringing up some brownish phlegm. Evaluation in the emergency room revealed infiltrates on the right side. He was not febrile. Observation was recommended to the patient but she did not want to stay in the hospital and so the patient was given antibiotics and was sent home. On the day of admission he apparently had severe shortness of breath, and EMS was called and he ended up getting intubated. His chest x-ray this time is showing infiltrates on the left side, and the infiltrate on the right side has been improving. The patient has a remote history of lung carcinoma and underwent partial resection of the right upper lung in the . He quit smoking 30 years ago. He notes subjective fevers and occasional diarrhea but denies any nausea, vomiting, or abdominal pain. . The patient's symptoms are mild to moderate, there are no current alleviating or exacerbating factors. He denies any diffuse myalgias, arthralgias, or lower extremity edema. He denies any history of pulmonary embolism or DVT. Patient has been on the vent. His white count remains elevated. Infectious disease consultation has been requested to evaluate the patient. Review of Systems ROS Limitations: Clinical Condition, Intubated Past Family Social History Allergies: Coded Allergies: No Known Allergies (Verified Adverse Reaction, Unknown, 01/04/18) Past Medical History COPD Lung cancer status post right upper lobectomy Vocal Cord squamous cell CA, S/P XRT, completed Rx 2010, followed by Dr Marina and Dr Sosa, last seen Jun 2017 and no recurrence History of bladder cancer, S/P TURBT Diabetes mellitus Coronary artery disease status post CABG Hypertension Atrial fibrillation Congestive heart failure Status postcardiac ablation Past Surgical History AICD placement TURBT Vocal Cord biopsy RUL lobectomy CABG Active Ordered Medications Current Medications Medications (Trade) Dose Ordered Sig/Yaakov Route Start Time Stop Time Status Last Admin (Zyloprim) 100 mg DAILY PO 01/04/18 09:00 01/05/18 09:04 (Coreg) 3.125 mg BID PO 01/04/18 09:00 (Proscar) 5 mg DAILY PO 01/04/18 09:00 Future Hold 01/05/18 09:04 (Diabeta) 2.5 mg BIDAC PO 01/04/18 07:00 Future Hold (Entresto 24-26 Mg) 1 tab BID PO 01/04/18 09:00 01/05/18 19:50 (Flomax) 0.4 mg HS PO 01/04/18 21:00 Future Hold 01/05/18 22:25 (Pravachol) 40 mg DAILY PO 01/04/18 09:00 01/05/18 09:10 (NS Flush) 2 ml UNSCH PRN IV FLUSH 01/04/18 06:00 (NS Flush) 2 ml BID IV FLUSH 01/04/18 09:00 01/05/18 19:49 (Tylenol) 650 mg Q6H PRN PO 01/04/18 06:00 (Pepcid Inj) 20 mg Q12HR IV PUSH 01/04/18 09:00 01/05/18 19:50 (Zofran Inj) 4 mg Q6H PRN IV PUSH 01/04/18 06:00 (Restoril) 15 mg HS PRN PO 01/04/18 06:00 (Duoneb Neb) 1 ampule Q4HR NEB INH 01/04/18 08:00 01/06/18 07:36 (Duoneb Neb) 1 ampule Q2HR NEB PRN INH 01/04/18 06:00 (Heparin Inj) 5,000 units Q8H SQ 01/04/18 06:00 01/06/18 04:57 Miscellaneous Information 1 Q361D XX 01/04/18 06:00 (Chlorhexidine 2% Cloth) 3 pack Taper DAILY@04 TOP 01/05/18 04:00 01/01/19 03:59 01/06/18 04:00 (Chlorhexidine 2% Cloth) 3 pack UNSCH PRN TOP 01/04/18 06:00 (Azra-Colace) 1 tab BID PO 01/04/18 09:00 01/05/18 19:50 (Milk Of Magnesia Liq) 30 ml Q12H PRN PO 01/04/18 06:00 (Senokot) 17.2 mg Q12H PRN PO 01/04/18 06:00 (Dulcolax Supp) 10 mg DAILY PRN RECTAL 01/04/18 06:00 (Lactulose Liq) 30 ml DAILY PRN PO 01/04/18 06:00 Piperacillin Sod/ Tazobactam Sod 100 ml @ 200 mls/hr Q6H IV 01/04/18 12:00 01/06/18 04:57 Pharmacy Profile Note 0 ml @ 0 mls/hr UNSCH OTHER 01/04/18 06:00 (SoluMEDROL INJ) 40 mg Q12H IV PUSH 01/04/18 06:00 01/06/18 04:57 (Tamiflu) 75 mg BID PO 01/04/18 09:00 01/09/18 08:59 01/05/18 19:50 Azithromycin 500 mg/Sodium Chloride 250 ml @ 250 mls/hr Q24H IV 01/04/18 08:00 01/05/18 09:04 Midazolam HCl 100 ml @ 2 mls/hr TITRATE PRN IV 01/04/18 07:00 01/05/18 05:32 (Peridex 0.12% Liq) 15 ml BID@08,20 MT 01/04/18 08:00 01/05/18 19:49 (D50w (Vial) Inj) 50 ml UNSCH PRN IV PUSH 01/04/18 07:30 (Glucagon Inj) 1 mg UNSCH PRN OTHER 01/04/18 07:30 (NovoLOG SUPPLEMENTAL SCALE) 1 ACHS SLIDING SCALE SQ 01/04/18 08:00 01/05/18 19:50 Fentanyl Citrate 250 ml @ 5 mls/hr TITRATE PRN IV 01/04/18 11:30 01/06/18 04:57 Vancomycin HCl 1250 mg/Sodium Chloride 262.5 ml @ 250 mls/hr Q18H IV 01/05/18 12:00 01/06/18 04:57 Miscellaneous Information SPECIFIC LAB TO BE DRAWN:VANCOMYCIN TROUGH DATE TO... ONCE ONCE .XX 01/07/18 17:45 01/07/18 17:46 (Brethine Inj) 1 mg UNSCH PRN SQ 01/05/18 10:45 (Levemir Inj) 10 units DAILY SQ 01/06/18 09:00 Potassium Phosphate 15 mmol/ Sodium Chloride 155 ml @ 38.75 mls/ hr ONCE ONCE IV 01/06/18 11:00 01/06/18 14:59 Family History Unremarkable Social History Patient quit smoking 20 years ago He drinks occasionally beer No history of illicit drug abuse Physical Exam Vital Signs Vital Signs Date Time Temp Pulse Resp B/P (MAP) Pulse Ox O2 Delivery O2 Flow Rate FiO2 01/06/18 07:36 100 40 01/06/18 06:00 69 01/06/18 04:16 99 40 01/06/18 04:00 40 01/06/18 04:00 69 01/06/18 04:00 96.9 69 14 110/62 (78) 98 01/06/18 02:00 69 01/06/18 00:00 69 01/06/18 00:00 96.9 69 19 102/59 (73) 98 01/06/18 00:00 40 01/05/18 23:27 99 40 01/05/18 22:00 69 01/05/18 20:08 98 40 01/05/18 20:00 69 01/05/18 20:00 40 01/05/18 20:00 96.9 69 17 114/67 (83) 99 01/05/18 16:15 69 20 108/72 (84) 97 01/05/18 16:00 98.6 69 14 108/68 (81) 97 01/05/18 16:00 40 01/05/18 15:45 69 16 102/66 (78) 96 01/05/18 15:30 69 14 107/70 (82) 97 01/05/18 15:15 69 15 102/69 (80) 98 01/05/18 15:15 100 40 01/05/18 15:00 69 16 103/70 (81) 97 18 14:45 69 18 98/65 (76) 93 01/05/18 14:30 69 18 97/61 (73) 94 01/05/18 14:15 69 20 107/74 (85) 97 01/05/18 14:00 69 20 104/69 (81) 97 18 13:49 69 20 98/69 (79) 96 01/05/18 13:30 69 20 107/73 (84) 96 01/05/18 13:15 69 20 107/71 (83) 97 01/05/18 13:00 69 20 104/72 (83) 97 01/05/18 12:45 69 20 102/70 (81) 96 18 12:30 69 20 96/70 (79) 96 18 12:15 69 20 96/69 (78) 96 01/05/18 12:00 60 01/05/18 12:00 98.7 69 20 96/67 (77) 99 01/05/18 11:45 69 20 93/67 (76) 01/05/18 11:30 69 20 93/65 (74) 99 01/05/18 11:15 69 20 92/62 (72) 100 01/05/18 11:05 100 40 01/05/18 11:00 69 18 80/51 (61) 98 01/05/18 11:00 69 72/50 01/05/18 10:30 60 01/05/18 10:30 69 19 73/50 (58) 98 01/05/18 10:27 69 19 72/51 (58) 99 01/05/18 10:00 69 19 82/52 (62) 100 Physical Exam GENERAL: Patient is a well-nourished, well-developed patient, awake and alert , not in respiratory distress. SKIN: Warm and dry. No generalized rash, no ecchymoses and no evidence of embolic lesions. HEAD: Atraumatic. Normocephalic. No temporal wasting, or tenderness. EYES: Milner conjunctiva. No petechia or hemorrhage. Pupils equal, round and reactive to light. Extraocular movements full and intact. No scleral icterus. No injection or drainage. EARS, NOSE AND THROAT: Nose without bleeding or purulent nasal discharge. No sinus tenderness. Mucous membranes pink and moist. No oral lesions noted. No exudate. No oral thrush. NECK: Trachea midline. Supple and not tender, no meningeal signs CARDIOVASCULAR: Regular rate and rhythm. No murmurs, rubs or gallops heard RESPIRATORY: Clear to auscultation. Breath sounds equal bilaterally. No rales , wheezing or rhonchi ABDOMEN: Soft, non-tender, nondistended. Bowel sounds present and normoactive. No guarding. No rebound. No organomegaly. EXTREMITIES: No clubbing, cyanosis, or edema.No joint effusion, has good ROM. No calf tenderness. Well perfused and warm. NEUROLOGICAL: Awake and alert. Cranial nerves grossly intact. Motor grossly within normal limits. PSYCHIATRIC: Normal affect, calm and cooperative. LINE: No evidence of infection Laboratory Laboratory Tests Test 01/05/18 11:47 01/06/18 03:30 Prothrombin Time 12.9 Prothromb Time International Ratio 1.3 Activated Partial Thromboplast Time 31.5 White Blood Count 13.1 Red Blood Count 3.98 Hemoglobin 9.7 Hematocrit 31.7 Mean Corpuscular Volume 79.7 Mean Corpuscular Hemoglobin 24.4 Mean Corpuscular Hemoglobin Concent 30.6 Red Cell Distribution Width 19.3 Platelet Count 143 Mean Platelet Volume 8.1 Neutrophils (%) (Auto) 96.0 Lymphocytes (%) (Auto) 0.9 Monocytes (%) (Auto) 3.0 Eosinophils (%) (Auto) 0.0 Basophils (%) (Auto) 0.1 Neutrophils # (Auto) 12.6 Lymphocytes # (Auto) 0.1 Monocytes # (Auto) 0.4 Eosinophils # (Auto) 0.0 Basophils # (Auto) 0.0 CBC Comment DIFF FINAL Differential Comment Blood Urea Nitrogen 27 Creatinine 1.12 Random Glucose 336 Calcium Level 7.7 Phosphorus Level 2.3 Magnesium Level 2.6 Sodium Level 144 Potassium Level 4.3 Chloride Level 112 Carbon Dioxide Level 22.2 Anion Gap 10 Estimat Glomerular Filtration Rate 63 B-Type Natriuretic Peptide 1238 Date/Time Source Procedure Growth Status 01/04/18 05:25 Blood Peripheral Aerobic Blood Culture - Preliminary NO GROWTH IN 1 DAY Resulted 01/04/18 05:25 Blood Peripheral Anaerobic Blood Culture - Preliminary NO GROWTH IN 1 DAY Resulted 01/04/18 09:35 Sputum Endotracheal Gram Stain - Final Complete 01/04/18 09:35 Sputum Endotracheal Sputum Culture - Final LIGHT GROWTH NORMAL RESPIRATORY ROBYN Complete Result Diagram: 01/06/18 0330 01/06/18 0330 Imaging RADIOLOGY STUDIES/FILMS REVIEWED Chest X-Ray 01/06/18 0600 Signed Impressions: Service Date/Time: Saturday, January 06, 2018 02:55 - CONCLUSION: Persistent left mid and lower lung consolidation. Wade Irizarry MD Chest X-Ray 01/05/18 0000 Signed Impressions: Service Date/Time: Friday, January 05, 2018 04:15 - CONCLUSION: Persistent left lower lobe consolidation. Wade Irizarry MD Chest X-Ray 01/04/18 0518 Signed Impressions: Service Date/Time: Thursday, January 04, 2018 05:27 - CONCLUSION: 1. Improving aeration in the right lower lung field. 2. However, there is now developing left perihilar infiltrate. 3. Interval placement of an endotracheal and nasogastric tube. Endotracheal tube appropriately position above the maria luisa. Nasogastric tube is seen at the GE junction and extends off the inferior aspect of the image. Ben Lara MD Assessment and Plan Assessment and Plan IMPRESSION Pneumonia, CAP Respiratory failure COPD Hx RUL lobectomy, Hx voxal cord CA, S/P XRT Leukocytosis, improving - due to PNA and steroids most likely RECOMMENDATION Deescalate Abx - sputum C/S NF Check legionella Ag Check atypical serologies IV Rocephin and Zithromax Stop vanco and Zosyn Monitor progress Follow CBC Weaning per CCM I will follow along with you Thank you for this consultation Discussed Condition With Discussed with nurse Rissa Clancy MD Jan 06, 2018 10:08
[2018-01-06] MEDS ORDERED: POTASSIUM PHOSPHATE INJ 15 MMOL in SODIUM CHLORIDE 0.9% INJ 150 ML IV ONE (11:00)
[2018-01-06 14:44] LABS: MAGNESIUM 2.6 MG/DL (1.5-2.5)
[2018-01-06] MEDS: cefTRIAXone INJ 2,000 MG in SODIUM CHLORIDE 0.9% INJ 100 ML IV SCH (15:02)
[2018-01-06 16:55] LABS: HEMOGLOBIN A1C 8.4 % (4.3-6.0)
--- NOTE | 2018-01-06 20:32 | MB ---
cc: Camila Jensen MD DATE OF CONSULT: REASON FOR CONSULTATION: Respiratory failure, patient with COPD on ventilatory support. HISTORY OF PRESENT ILLNESS: Mr. Vázquez is an 82-year-old male admitted with increasing shortness of breath, hypoxemia requiring intubation on ventilatory support. The patient has a known history of COPD as well as history of lung cancer. His right upper lung lobe was resected in the . He does not relate any history. The history is obtained from his record this. PAST MEDICAL HISTORY: That of lung cancer, post right upper lobectomy, COPD, laryngeal cancer, status post radiation therapy 2010, diabetes mellitus, hypertension, coronary artery disease, post-CABG, atrial fibrillation, congestive heart failure, has an AICD in place. FAMILY HISTORY: Noncontributory. SOCIAL HISTORY: Smoked with a [id number] smoking history, has not smoked in 20 years. Drinks beer socially. Does not use drugs. REVIEW OF SYSTEMS: A 12-point review of systems as per HPI and past history, otherwise negative. MEDICATIONS: Include Zyloprim, Coreg, Proscar, DiaBeta, Flomax, Pravachol, Pepcid, Zofran, DuoNeb, piperacillin/tazobactam, Zithromax, Solu-Medrol. ALLERGIES: NONE KNOWN TO MEDICATION. PHYSICAL EXAMINATION: GENERAL: The patient is on ventilatory support. VITAL SIGNS: Temperature 98, pulse 70, respiration 14, blood pressure 110/60. HEENT: Unremarkable. Eyes without icterus. NECK: Without adenopathy, thyroid enlargement. CHEST: Few scattered rhonchi bilaterally. CARDIAC: PMI distant S1, S2 audible. No murmur. No rub. ABDOMEN: Lax, bowel sounds audible. EXTREMITIES: No clubbing, cyanosis or edema. LABORATORY DATA: INR 1.3. Sodium 144, potassium 4.3, BUN 27, creatinine 1.1. White count 13,000, hemoglobin 9.7, hematocrit 31, platelets 143,000. Chest x-ray with a left lower lobe pneumonia. IMPRESSION: 1. Acute respiratory failure. 2. Pneumonia. 3. Chronic obstructive pulmonary disease. 4. Atrial fibrillation, post-ablation. 5. Coronary artery disease, post coronary artery bypass graft. 6. Diabetes mellitus. 7. Hypertension. 9. Congestive heart failure. PLAN: The patient is on ventilatory support, weaning is in progress at present. The patient's arterial blood gas last done 01/04 with a pH of 7.38, pCO2 of 35, and pO2 of 260. Inspired oxygen fraction has since been reduced. Will follow. The patient is to continue antibiotic therapy for underlying infection, has been seen by Dr. Clancy for same. Will wean the patient as tolerated. Continue bronchodilator therapy and IV steroid therapy and taper as tolerated. I do thank you for asking me to partake in Mr. Vázquez's care. Camila Jensen MD WWW/rt , 08:06 PM , 08:30 PM
[2018-01-07] VITALS (18 sets, daily range): BP systolic 119–141; BP diastolic 61–80; PULSE 69; RESP 11–31; TEMP 97.3–99.1; O2SAT 97–100
[2018-01-07] MEDS: RESP: ALBUTEROL 2.5 MG/IPRATROPIUM 0.5 MG NEB (SCH) INH ×7 (01:17→23:51)
[2018-01-07] MEDS: CHLORHEXIDINE GLUCONATE 2 % 1 PACK (2 CLOTHS) TOP SCH (04:00)
--- NOTE | 2018-01-07 04:52 | RADRPT ---
EXAM DATE/TIME: 01/07/2018 02:17 [facility] COMPARISON: CHEST SINGLE AP, January 06, 2018, 2:55. INDICATIONS : Shortness of breath. MEDICAL HISTORY : Hypertension. Chronic obstructive pulmonary disease. Diabetes mellitus type II. CAD Carcinoma nina g SURGICAL HISTORY : Pacemaker. CABG. ENCOUNTER: Subsequent ACUITY: 4 - 6 days PAIN SCORE: Non-responsive. LOCATION: Bilateral chest FINDINGS: ET tube tip 1.2 cm above the maria luisa. There is persistent consolidation left mid and lower lung with total loss of delineation left hemidiaphragm. The right lung is clear. Cardiac pacer leads in place . Gastric tube traverses the [id number]. CONCLUSION: 1. Persistent left mid and lower lung consolidation. 2. ET tube tip 1.2 cm above the maria luisa and needs to be withdrawn at least 1 cm. Wade Irizarry MD on January 07, 2018 at 4:50 Board Certified Radiologist. This report was verified electronically.
[2018-01-07] MEDS: methylPREDNISolone SOD SUCC 40 MG/1 ML VIAL IV PUSH SCH ×2 (06:45→17:09)
[2018-01-07] MEDS: HEPARIN SODIUM - SQ 10,000 UNITS/ML VIAL SQ SCH ×3 (06:45→21:55)
[2018-01-07 08:05] LABS: AUTOMATED NEUTROPHIL # 11.8 TH/MM3 (1.8-7.7); BASOPHIL % 0.1 % (0.0-2.0); HEMATOCRIT 33.2 % (39.0-51.0); HEMOGLOBIN 10.2 GM/DL (13.0-17.0); LYMPHOCYTE # 0.1 TH/MM3 (1.0-4.8); MEAN CELL VOLUME 79.4 FL (80.0-100.0); MEAN CORPUSCULAR HEMOGLOBIN 24.4 PG (27.0-34.0); MEAN CORPUSCULAR HGB CONC 30.7 % (32.0-36.0); MEAN PLATELET VOLUME 8.2 FL (7.0-11.0); MONO % 2.8 % (0.0-8.0); MONOCYTE # 0.3 TH/MM3 (0-0.9); NEUT % 96.1 % (16.0-70.0); PLATELET COUNT 153 TH/MM3 (150-450); RED BLOOD COUNT 4.19 MIL/MM3 (4.50-5.90); RED CELL DISTRIBUTION WIDTH 19.1 % (11.6-17.2); WHITE BLOOD COUNT 12.3 TH/MM3 (4.0-11.0)
[2018-01-07 08:31] LABS: BICARBONATE 25.4 MEQ/L (21.0-32.0); CALCIUM 7.8 MG/DL (8.5-10.1); CREATININE 1.15 MG/DL (0.60-1.30); MAGNESIUM 2.8 MG/DL (1.5-2.5)
[2018-01-07 08:32] LABS: PHOSPHORUS 2.2 MG/DL (2.5-4.9)
[2018-01-07] MEDS: INSULIN ASPART SUPPLEMENTAL SCALE SQ SCH ×4 (08:39→20:36)
[2018-01-07] MEDS: SODIUM CHLORIDE 0.9% FLUSH 10 ML FLUSH IV FLUSH SCH ×2 (08:40→21:54)
[2018-01-07] MEDS: INSULIN DETEMIR 100 UNITS/ML VIAL SQ SCH ×2 (08:41→21:55)
[2018-01-07] MEDS: OSELTAMIVIR PHOSPHATE 75 MG CAP PO SCH ×2 (08:41→21:54)
[2018-01-07] MEDS: PRAVASTATIN SOD 40 MG TAB PO SCH (08:41)
[2018-01-07] MEDS: ALLOPURINOL 100 MG TAB PO SCH (08:41)
[2018-01-07] MEDS: SACUBITRIL/VALSARTAN 24 MG-26 MG TAB PO SCH ×2 (08:42→21:54)
[2018-01-07] MEDS: CARVEDILOL 3.125 MG TAB PO SCH ×2 (08:42→21:54)
[2018-01-07] MEDS: DOCUSATE SODIUM 50 MG/SENNA 8.6 MG TAB PO SCH ×2 (08:42→21:00)
[2018-01-07] MEDS: FAMOTIDINE 20 MG/2 ML VIAL IV PUSH SCH ×2 (08:42→21:54)
[2018-01-07] MEDS: CHLORHEXIDINE 0.12% (ORAL KIT) 15 ML CUP MT SCH ×2 (08:43→20:00)
[2018-01-07] MEDS: AZITHROMYCIN INJ 500 MG in SODIUM CHLOR 0.9% 250 ML INJ 250 ML IV SCH (08:44)
[2018-01-07] MEDS: MIDAZOLAM 100 MG/100 ML INJ 100 ML IV PRN (11:40)
--- NOTE | 2018-01-07 13:20 | HHI.IDPN ---
Subjective Subjective Remarks Patient is an 82-year-old male, presented initially at the emergency room on December 30 complaining of 3 day history of cough and shortness of breath. He was bringing up some brownish phlegm. Evaluation in the emergency room revealed infiltrates on the right side. He was not febrile. Observation was recommended to the patient but she did not want to stay in the hospital and so the patient was given antibiotics and was sent home. On the day of admission he apparently had severe shortness of breath, and EMS was called and he ended up getting intubated. His chest x-ray this time is showing infiltrates on the left side, and the infiltrate on the right side has been improving. The patient has a remote history of lung carcinoma and underwent partial resection of the right upper lung in the . He quit smoking 30 years ago. He notes subjective fevers and occasional diarrhea but denies any nausea, vomiting, or abdominal pain. . The patient's symptoms are mild to moderate, there are no current alleviating or exacerbating factors. He denies any diffuse myalgias, arthralgias, or lower extremity edema. He denies any history of pulmonary embolism or DVT. Patient has been on the vent. His white count remains elevated. Infectious disease consultation has been requested to evaluate the patient. Notes reviewed Temps low-grade On the vent Tolerating CPAP trials Nothing on cultures Chest x-ray stable infiltrates on the left WBC slightly lower Antibiotics Rocephin Zithromax Current Medications Medications (Trade) Dose Ordered Sig/Yaakov Route Start Time Stop Time Status Last Admin (Zyloprim) 100 mg DAILY PO 01/04/18 09:00 01/07/18 08:41 (Coreg) 3.125 mg BID PO 01/04/18 09:00 01/07/18 08:42 (Proscar) 5 mg DAILY PO 01/04/18 09:00 Future Hold 01/05/18 09:04 (Diabeta) 2.5 mg BIDAC PO 01/04/18 07:00 Future Hold (Entresto 24-26 Mg) 1 tab BID PO 01/04/18 09:00 01/07/18 08:42 (Flomax) 0.4 mg HS PO 01/04/18 21:00 Future Hold 01/05/18 22:25 (Pravachol) 40 mg DAILY PO 01/04/18 09:00 01/07/18 08:41 (NS Flush) 2 ml UNSCH PRN IV FLUSH 01/04/18 06:00 (NS Flush) 2 ml BID IV FLUSH 01/04/18 09:00 01/07/18 08:40 (Tylenol) 650 mg Q6H PRN PO 01/04/18 06:00 (Pepcid Inj) 20 mg Q12HR IV PUSH 01/04/18 09:00 01/07/18 08:42 (Zofran Inj) 4 mg Q6H PRN IV PUSH 01/04/18 06:00 (Restoril) 15 mg HS PRN PO 01/04/18 06:00 (Duoneb Neb) 1 ampule Q4HR NEB INH 01/04/18 08:00 01/07/18 11:35 (Duoneb Neb) 1 ampule Q2HR NEB PRN INH 01/04/18 06:00 (Heparin Inj) 5,000 units Q8H SQ 01/04/18 06:00 01/07/18 06:45 Miscellaneous Information 1 Q361D XX 01/04/18 06:00 (Chlorhexidine 2% Cloth) 3 pack Taper DAILY@04 TOP 01/05/18 04:00 01/01/19 03:59 01/07/18 04:00 (Chlorhexidine 2% Cloth) 3 pack UNSCH PRN TOP 01/04/18 06:00 (Azra-Colace) 1 tab BID PO 01/04/18 09:00 01/07/18 08:42 (Milk Of Magnesia Liq) 30 ml Q12H PRN PO 01/04/18 06:00 (Senokot) 17.2 mg Q12H PRN PO 01/04/18 06:00 (Dulcolax Supp) 10 mg DAILY PRN RECTAL 01/04/18 06:00 (Lactulose Liq) 30 ml DAILY PRN PO 01/04/18 06:00 (SoluMEDROL INJ) 40 mg Q12H IV PUSH 01/04/18 06:00 01/07/18 06:45 (Tamiflu) 75 mg BID PO 01/04/18 09:00 01/09/18 08:59 01/07/18 08:41 Azithromycin 500 mg/Sodium Chloride 250 ml @ 250 mls/hr Q24H IV 01/04/18 08:00 01/07/18 08:44 Midazolam HCl 100 ml @ 2 mls/hr TITRATE PRN IV 01/04/18 07:00 01/07/18 11:40 (Peridex 0.12% Liq) 15 ml BID@08,20 MT 01/04/18 08:00 01/07/18 08:43 (D50w (Vial) Inj) 50 ml UNSCH PRN IV PUSH 01/04/18 07:30 (Glucagon Inj) 1 mg UNSCH PRN OTHER 01/04/18 07:30 (NovoLOG SUPPLEMENTAL SCALE) 1 ACHS SLIDING SCALE SQ 01/04/18 08:00 01/07/18 11:39 Fentanyl Citrate 250 ml @ 5 mls/hr TITRATE PRN IV 01/04/18 11:30 01/06/18 04:57 (Brethine Inj) 1 mg UNSCH PRN SQ 01/05/18 10:45 Ceftriaxone Sodium 2000 mg/ Sodium Chloride 100 ml @ 200 mls/hr Q24H IV 01/06/18 15:00 01/06/18 15:02 (Levemir Inj) 15 units Q12HR SQ 01/07/18 09:00 01/07/18 08:41 Sodium Phosphate 15 mmol/Sodium Chloride 155 ml @ 38.75 mls/ hr ONCE ONCE IV 01/07/18 14:00 01/07/18 17:59 Lines Line with no evidence of infection Past Medical History COPD Lung cancer status post right upper lobectomy Vocal Cord squamous cell CA, S/P XRT, completed Rx 2010, followed by Dr Marina and Dr Sosa, last seen Jun 2017 and no recurrence History of bladder cancer, S/P TURBT Diabetes mellitus Coronary artery disease status post CABG Hypertension Atrial fibrillation Congestive heart failure Status postcardiac ablation Past Surgical History AICD placement TURBT Vocal Cord biopsy RUL lobectomy CABG Allergies: Coded Allergies: No Known Allergies (Verified Adverse Reaction, Unknown, 01/04/18) Objective . Vital Signs Date Time Temp Pulse Resp B/P (MAP) Pulse Ox O2 Delivery O2 Flow Rate FiO2 01/07/18 12:00 69 01/07/18 12:00 98.8 69 12 122/65 (84) 99 01/07/18 10:00 69 01/07/18 08:00 99.1 69 14 141/78 (99) 100 01/07/18 08:00 69 01/07/18 08:00 40 01/07/18 07:49 100 40 01/07/18 06:00 69 01/07/18 05:29 100 40 01/07/18 04:00 69 01/07/18 04:00 40 01/07/18 04:00 97.3 69 19 129/70 (89) 100 01/07/18 02:00 69 01/07/18 01:17 100 40 01/07/18 00:00 97.7 69 11 119/61 (80) 99 01/07/18 00:00 69 01/07/18 00:00 40 01/06/18 22:00 69 01/06/18 21:20 99 40 01/06/18 20:00 69 01/06/18 20:00 96.2 69 11 121/66 (84) 98 01/06/18 20:00 40 01/06/18 17:00 69 16 131/73 (92) 01/06/18 16:30 69 12 110/58 (75) 100 01/06/18 16:01 98.8 69 18 129/64 (85) 100 01/06/18 16:00 69 01/06/18 15:30 69 14 108/56 (73) 100 01/06/18 15:00 69 11 103/57 (72) 98 01/06/18 14:30 69 11 103/59 (74) 98 01/06/18 14:00 69 01/06/18 14:00 69 16 122/64 (83) 99 01/06/18 13:30 69 12 113/59 (77) . Laboratory Tests Test 01/06/18 03:30 01/07/18 05:40 White Blood Count 13.1 TH/MM3 12.3 TH/MM3 Red Blood Count 3.98 MIL/MM3 4.19 MIL/MM3 Hemoglobin 9.7 GM/DL 10.2 GM/DL Hematocrit 31.7 % 33.2 % Mean Corpuscular Volume 79.7 FL 79.4 FL Mean Corpuscular Hemoglobin 24.4 PG 24.4 PG Mean Corpuscular Hemoglobin Concent 30.6 % 30.7 % Red Cell Distribution Width 19.3 % 19.1 % Platelet Count 143 TH/MM3 153 TH/MM3 Mean Platelet Volume 8.1 FL 8.2 FL Neutrophils (%) (Auto) 96.0 % 96.1 % Lymphocytes (%) (Auto) 0.9 % 1.0 % Monocytes (%) (Auto) 3.0 % 2.8 % Eosinophils (%) (Auto) 0.0 % 0.0 % Basophils (%) (Auto) 0.1 % 0.1 % Neutrophils # (Auto) 12.6 TH/MM3 11.8 TH/MM3 Lymphocytes # (Auto) 0.1 TH/MM3 0.1 TH/MM3 Monocytes # (Auto) 0.4 TH/MM3 0.3 TH/MM3 Eosinophils # (Auto) 0.0 TH/MM3 0.0 TH/MM3 Basophils # (Auto) 0.0 TH/MM3 0.0 TH/MM3 CBC Comment DIFF FINAL DIFF FINAL Differential Comment Laboratory Tests Test 01/06/18 03:30 01/06/18 14:15 01/07/18 05:40 Blood Urea Nitrogen 27 MG/DL 30 MG/DL Creatinine 1.12 MG/DL 1.15 MG/DL Random Glucose 336 MG/DL 334 MG/DL Calcium Level 7.7 MG/DL 7.8 MG/DL Phosphorus Level 2.3 MG/DL 2.2 MG/DL Magnesium Level 2.6 MG/DL 2.6 MG/DL 2.8 MG/DL Sodium Level 144 MEQ/L 144 MEQ/L Potassium Level 4.3 MEQ/L 4.4 MEQ/L 4.5 MEQ/L Chloride Level 112 MEQ/L 109 MEQ/L Carbon Dioxide Level 22.2 MEQ/L 25.4 MEQ/L Anion Gap 10 MEQ/L 10 MEQ/L Estimat Glomerular Filtration Rate 63 ML/MIN 61 ML/MIN Hemoglobin A1c 8.4 % B-Type Natriuretic Peptide 1238 PG/ML 1199 PG/ML Imaging Last 72 hours Impressions Chest X-Ray 01/07/18 0600 Signed Impressions: Service Date/Time: Sunday, January 07, 2018 02:17 - CONCLUSION: 1. Persistent left mid and lower lung consolidation. 2. ET tube tip 1.2 cm above the maria luisa and needs to be withdrawn at least 1 cm. Wade Irizarry MD Chest X-Ray 01/06/18 0600 Signed Impressions: Service Date/Time: Saturday, January 06, 2018 02:55 - CONCLUSION: Persistent left mid and lower lung consolidation. Wade Irizarry MD Chest X-Ray 01/05/18 0000 Signed Impressions: Service Date/Time: Friday, January 05, 2018 04:15 - CONCLUSION: Persistent left lower lobe consolidation. Wade Irizarry MD Physical Exam GENERAL: awake and alert, not in respiratory distress. SKIN: Warm and dry. No generalized rash, no ecchymoses and no evidence of embolic lesions. HEAD: Atraumatic. Normocephalic. No temporal wasting, or tenderness. EYES: [place] conjunctiva. No petechia or hemorrhage. Pupils equal, round and reactive to light. Extraocular movements full and intact. No scleral icterus. No injection or drainage. EARS, NOSE AND THROAT: Nose without bleeding or purulent nasal discharge. No sinus tenderness. Mucous membranes pink and moist. No oral lesions noted. No exudate. No oral thrush. NECK: Trachea midline. Supple and not tender, no meningeal signs CARDIOVASCULAR: Regular rate and rhythm. No murmurs, rubs or gallops heard RESPIRATORY: Clear to auscultation. Breath sounds equal bilaterally. No rales , wheezing or rhonchi ABDOMEN: Soft, non-tender, nondistended. Bowel sounds present and normoactive. No guarding. No rebound. No organomegaly. EXTREMITIES: No clubbing, cyanosis, or edema.No joint effusion, has good ROM. No calf tenderness. Well perfused and warm. NEUROLOGICAL: Awake and alert. Cranial nerves grossly intact. Motor grossly within normal limits. PSYCHIATRIC: Normal affect, calm and cooperative. LINE: No evidence of infection Assessment & Plan Remarks IMPRESSION Pneumonia, CAP Respiratory failure COPD Hx RUL lobectomy, Hx voxal cord CA, S/P XRT Leukocytosis, improving - due to PNA and steroids most likely RECOMMENDATION Deescalate Abx - sputum C/S NF Check legionella Ag Follow atypical serologies IV Rocephin and Zithromax Monitor progress Follow CBC Weaning per CCM I will off January 08 Other ID MD covering in my absence Rissa Clancy MD Jan 07, 2018 13:20
[2018-01-07] MEDS ORDERED: SODIUM PHOSPHATE INJ 15 MMOL in SODIUM CHLORIDE 0.9% INJ 150 ML IV ONE (14:00)
--- NOTE | 2018-01-07 14:11 | HHI.CCPN ---
Subjective Remarks/Hospital Course 82-year-old gentleman who was seen a few days ago at [place] emergency department, with complaints of respiratory distress, diagnosed with pneumonia, at that time he improved and didn't want to be hospitalized and was discharged , returns today with acute respiratory failure, and worsening pneumonia. Per EMT report his O2 sats at home were in 60s and he was intubated in the field for acute respiratory failure. Subjective: 01/05: The patient noted to be slightly hypotensive early this a.m. has continued on a PEEP of 10 low dose Stephen-Synephrine initiated. PEEP has been weaned down to 7. Patient's O2 saturation 98%. 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 The patient also received radiation therapy and as a 06/2017 no evidence of disease recurrence. Dr. Gianluca Harry is the pipe fitter helper who last follow him as an inpatient. 01/06: Hemodynamically stable. Phenylephrine discontinued yesterday afternoon. Patient's medications placed on hold 2/2 hypotension- Entresto, finasteride, and Flomax. All sedation patient awake responding to commands, moving extremities 4. Plan today is to begin CPAP trials. Pulmonology also has been consulted. 01/07: No acute events overnight. The patient tolerated CPAP trials throughout the entire night. Sedation has been discontinue in anticipation of SBT trial this afternoon with potential plans for extubation. The WBC count slightly diminished however chest x-ray remains unchanged. Upon sedation vacation patient alert and oriented following commands. Objective Vital Signs Date Time Temp Pulse Resp B/P (MAP) Pulse Ox O2 Delivery O2 Flow Rate FiO2 01/07/18 12:00 69 01/07/18 12:00 98.8 12 122/65 (84) 99 01/07/18 08:00 40 01/04/18 16:00 Ventilator Intake and Output 01/07/18 01/07/18 01/08/18 08:00 16:00 00:00 Intake Total 794 ml Output Total 1100 ml Balance -306 ml Result Diagram: 01/07/18 0540 01/07/18 0540 Other Results Laboratory Tests Test 01/07/18 05:36 Blood Gas Puncture Site RT RADIAL Blood Gas Patient Temperature 98.6 Blood Gas HCO3 25 mmol/L (22-26) Blood Gas Base Excess 1.5 mmol/L (-2-2) Blood Gas Oxygen Saturation 95 % (90-100) Arterial Blood pH 7.43 (7.380-7.420) Arterial Blood Partial Pressure CO2 39 mmHg (38-42) Arterial Blood Partial Pressure O2 100 mmHg (61-120) Arterial Blood Oxygen Content 13.6 Vol % (12.0-20.0) Arterial Blood Carboxyhemoglobin 1.4 % (0-4) Arterial Blood Methemoglobin 1.2 % (0-2) Blood Gas Hemoglobin 10.1 G/DL (12.0-16.0) Oxygen Delivery Device CPAP Blood Gas Ventilator Setting 8 PS/5 PEEP Blood Gas Inspired Oxygen 40 % Objective Remarks GENERAL: Elderly gentleman minimally sedated and intubated in no distress, following commands SKIN: Warm and dry. HEAD: Normocephalic. EYES: No scleral icterus. No injection or drainage. NECK: Supple, trachea midline. No JVD or lymphadenopathy. CARDIOVASCULAR: Regular rate and rhythm without murmurs, gallops, or rubs. RESPIRATORY: Breath sounds equal bilaterally. Clear to auscultation .No accessory muscle use. GASTROINTESTINAL: Abdomen soft, non-tender, nondistended. MUSCULOSKELETAL: No cyanosis, or edema. BACK: Nontender without obvious deformity. NEURO EXAM: GCS: M 5V tE3 Mental Status: RASS-1 A/P Assessment and Plan Plan by systems: Neurologic: Propofol discontinued 01/05 for sedation Continue Versed and/fentanyl fusions to maintain ventilator synchrony. 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) H/O right lower lobectomy for early stage SCC (2010) S/P radiation therapy for lung carcinoma 01/2011 Maintain O2 sat greater than 92% Ventilator bundle Bronchodilators every 6 hours scheduled and every 2 hours when necessary Chest q-lcy-qmnkffcohv left mid and lower lung consolidation Antibiotics see below 2015-PFTs 50-60% function Solu-Medrol IV 40 every 12 Pulmonology [id number] recommendations Continue CPAP trials- 05/24 .40 Perform SBT off sedation Cardiovascular: H/O CABG 1996 Hypotension-resolved Coronary artery disease CHF Maintain MAP> 65mmHG Hold Entresto, finasteride, and Flomax in the setting of hypotension. Will resume when clinically indicated Resume ARB when blood pressure is tolerable BNP 1238->1199 today, continue to monitor Renal: Maintain [place]- patient receiving IV diuretics -- Strict I/Os FEN/GI: Electrolyte derangement Electrolyte replacement per ICU protocol 01/06 Lasix 40mg x 1 dose today- 6L positive. Good diuresis>1 L,01/07 Repeat a 640 mg IV 1 dose Maintain OGT Continue tube feeds Glucerna-minimal residual Heme/ID: Pneumonia ID following- Dr. Clancy 01/04 Blood culture-NGTD 01/04 Sputum culture-NGTD Antibiotics per ID- Rocephin, Azithromycin F/U Legionella and Mycoplasma antigens Endocrine: Hyperglycemia of critical illness Obtain hemoglobin A1c Levemir 10u BID Glucose monitoring per ICU protocol low dose regimen -- SSI Prophylaxis: GI Prophylaxis Famotidine DVT Prophylaxis -- SCDs Heparin SQ Lines: Peripheral IVs 2. Central line if indicated Dispo: my billing statement This patient remains critically ill with one or more organ systems which are or may become a threat to life. I have spent in excess of 34 minutes discontinuously in the care and management of this patient. This time is exclusive of procedures, and includes, but is not limited to, evaluation of the patient, review of the medical record, discussions with family, consultants, nursing staff, or respiratory therapy, and documentation in the medical record. 01/05- patient's daughter and significant other at bedside, provided medical update. All questions answered. Discussed with EDITING COMPUTER PUBLISHER at bedside (Jayla ) and RT Physician Ameena Moreira MD Jan 07, 2018 14:11
[2018-01-07] MEDS ORDERED: FUROSEMIDE 40 MG/4 ML VIAL IV PUSH ONE (14:15)
[2018-01-07] MEDS ORDERED: BISACODYL 10 MG SUPP RECTAL ONE (14:15)
[2018-01-07] MEDS: cefTRIAXone INJ 2,000 MG in SODIUM CHLORIDE 0.9% INJ 100 ML IV SCH (15:32)
[2018-01-07] MEDS ORDERED: PHARMACY ORDERED LAB ONE (17:45)
[2018-01-08] VITALS (16 sets, daily range): BP systolic 125–143; BP diastolic 63–79; PULSE 69; RESP 19–26; TEMP 96.4–97.9; O2SAT 69–100
[2018-01-08] MEDS: RESP: ALBUTEROL 2.5 MG/IPRATROPIUM 0.5 MG NEB (SCH) INH ×2 (03:28→07:25)
[2018-01-08] MEDS: CHLORHEXIDINE GLUCONATE 2 % 1 PACK (2 CLOTHS) TOP SCH (04:00)
[2018-01-08 05:12] LABS: AUTOMATED NEUTROPHIL # 12.9 TH/MM3 (1.8-7.7); BASOPHIL % 0.2 % (0.0-2.0); HEMATOCRIT 34.1 % (39.0-51.0); HEMOGLOBIN 10.7 GM/DL (13.0-17.0); LYMPH % 1.4 % (9.0-44.0); LYMPHOCYTE # 0.2 TH/MM3 (1.0-4.8); MEAN CELL VOLUME 78.6 FL (80.0-100.0); MEAN CORPUSCULAR HEMOGLOBIN 24.6 PG (27.0-34.0); MEAN CORPUSCULAR HGB CONC 31.3 % (32.0-36.0); MEAN PLATELET VOLUME 8.1 FL (7.0-11.0); MONO % 3.8 % (0.0-8.0); MONOCYTE # 0.5 TH/MM3 (0-0.9); NEUT % 94.6 % (16.0-70.0); PLATELET COUNT 159 TH/MM3 (150-450); RED BLOOD COUNT 4.33 MIL/MM3 (4.50-5.90); RED CELL DISTRIBUTION WIDTH 18.7 % (11.6-17.2); WHITE BLOOD COUNT 13.7 TH/MM3 (4.0-11.0)
[2018-01-08] MEDS: methylPREDNISolone SOD SUCC 40 MG/1 ML VIAL IV PUSH SCH ×2 (05:39→18:33)
[2018-01-08] MEDS: HEPARIN SODIUM - SQ 10,000 UNITS/ML VIAL SQ SCH ×3 (05:40→19:52)
[2018-01-08 05:41] LABS: BICARBONATE 28.9 MEQ/L (21.0-32.0); CALCIUM 8.1 MG/DL (8.5-10.1); CREATININE 1.01 MG/DL (0.60-1.30); MAGNESIUM 2.7 MG/DL (1.5-2.5); PHOSPHORUS 2.9 MG/DL (2.5-4.9)
--- NOTE | 2018-01-08 06:13 | RADRPT ---
EXAM DATE/TIME: 01/08/2018 03:52 [facility] COMPARISON: CHEST SINGLE AP, January 07, 2018, 2:17. INDICATIONS : Shortness of breath, possible pulmonary disease. MEDICAL HISTORY : Hypertension. Chronic obstructive pulmonary disease. Diabetes mellitus type II. CAD Carcinoma,nina g SURGICAL HISTORY : Pacemaker. CABG. ENCOUNTER: Subsequent ACUITY: 4 - 6 days PAIN SCORE: Non-responsive. LOCATION: Bilateral chest FINDINGS: Interval extubation and removal of gastric tube. Persistent consolidation in the left lower lobe wit h loss of delineation of the left hemidiaphragm. Blunting of the right costophrenic angle characteri stic of a small pleural effusion. The right lung is clear. Cardiac pacer leads stable. CONCLUSION: Persistent left lower lobe consolidation and small right pleural effusion. Wade Irizarry MD on January 08, 2018 at 6:11 Board Certified Radiologist. This report was verified electronically.
[2018-01-08] MEDS: CHLORHEXIDINE 0.12% (ORAL KIT) 15 ML CUP MT SCH ×2 (07:41→19:53)
[2018-01-08] MEDS: DOCUSATE SODIUM 50 MG/SENNA 8.6 MG TAB PO SCH ×2 (07:41→19:52)
--- NOTE | 2018-01-08 08:07 | HHI.CCPN ---
Subjective Remarks/Hospital Course 82-year-old gentleman who was seen a few days ago at [place] emergency department, with complaints of respiratory distress, diagnosed with pneumonia, at that time he improved and didn't want to be hospitalized and was discharged , returns today with acute respiratory failure, and worsening pneumonia. Per EMT report his O2 sats at home were in 60s and he was intubated in the field for acute respiratory failure. Subjective: 01/05: The patient noted to be slightly hypotensive early this a.m. has continued on a PEEP of 10 low dose Stephen-Synephrine initiated. PEEP has been weaned down to 7. Patient's O2 saturation 98%. 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 The patient also received radiation therapy and as a 06/2017 no evidence of disease recurrence. Dr. Gianluca Harry is the legal document specialist who last follow him as an inpatient. 01/06: Hemodynamically stable. Phenylephrine discontinued yesterday afternoon. Patient's medications placed on hold 2/2 hypotension- Entresto, finasteride, and Flomax. All sedation patient awake responding to commands, moving extremities 4. Plan today is to begin CPAP trials. Pulmonology also has been consulted. 01/07: No acute events overnight. The patient tolerated CPAP trials throughout the entire night. Sedation has been discontinue in anticipation of SBT trial this afternoon with potential plans for extubation. The WBC count slightly diminished however chest x-ray remains unchanged. Upon sedation vacation patient alert and oriented following commands. 01/08 Patient s/p extubation yesterday. On 3L oxygen. Afebrile. Objective Vital Signs Date Time Temp Pulse Resp B/P (MAP) Pulse Ox O2 Delivery O2 Flow Rate FiO2 01/08/18 07:26 96 Nasal Cannula 3.00 01/08/18 02:00 69 01/08/18 00:00 96.4 25 133/77 (95) 01/07/18 12:00 40 Result Diagram: 01/08/18 0320 01/08/18 0320 Other Results Laboratory Tests Test 01/08/18 03:20 White Blood Count 13.7 TH/MM3 Red Blood Count 4.33 MIL/MM3 Hemoglobin 10.7 GM/DL Hematocrit 34.1 % Mean Corpuscular Volume 78.6 FL Mean Corpuscular Hemoglobin 24.6 PG Mean Corpuscular Hemoglobin Concent 31.3 % Red Cell Distribution Width 18.7 % Platelet Count 159 TH/MM3 Mean Platelet Volume 8.1 FL Neutrophils (%) (Auto) 94.6 % Lymphocytes (%) (Auto) 1.4 % Monocytes (%) (Auto) 3.8 % Eosinophils (%) (Auto) 0.0 % Basophils (%) (Auto) 0.2 % Neutrophils # (Auto) 12.9 TH/MM3 Lymphocytes # (Auto) 0.2 TH/MM3 Monocytes # (Auto) 0.5 TH/MM3 Eosinophils # (Auto) 0.0 TH/MM3 Basophils # (Auto) 0.0 TH/MM3 CBC Comment AUTO DIFF Blood Urea Nitrogen 29 MG/DL Creatinine 1.01 MG/DL Random Glucose 91 MG/DL Calcium Level 8.1 MG/DL Phosphorus Level 2.9 MG/DL Magnesium Level 2.7 MG/DL Sodium Level 146 MEQ/L Potassium Level 3.9 MEQ/L Chloride Level 109 MEQ/L Carbon Dioxide Level 28.9 MEQ/L Anion Gap 8 MEQ/L Estimat Glomerular Filtration Rate 71 ML/MIN Imaging Last Impressions Chest X-Ray 01/08/18 0600 Signed Impressions: Service Date/Time: December 03:52 - CONCLUSION: Persistent left lower lobe consolidation and small right pleural effusion. Wade Irizarry MD Objective Remarks GENERAL: Elderly gentleman lying in bed in NAD SKIN: Warm and dry. HEAD: Normocephalic. EYES: No scleral icterus. No injection or drainage. NECK: Supple, trachea midline. No JVD or lymphadenopathy. CARDIOVASCULAR: Regular rate and rhythm without murmurs, gallops, or rubs. RESPIRATORY: Breath sounds equal bilaterally. Clear to auscultation .No accessory muscle use. GASTROINTESTINAL: Abdomen soft, non-tender, nondistended. MUSCULOSKELETAL: No cyanosis, or edema. BACK: Nontender without obvious deformity. NEURO EXAM: Awake. 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 On Coreg 3.125mg BID Check 2D echo to eval LV function Renal: Monitor renal function, I/O's, electrolytes replacement per protocol. FEN/GI: Speech eval, diet per speech On Pepcid for GI prophylaxis Heme/ID: Pneumonia ID following- Dr. Clancy 01/04 Blood culture-NGTD 01/04 Sputum culture-NGTD Antibiotics per ID- Rocephin, Azithromycin F/U Legionella and Mycoplasma antigens Endocrine: -- Change SSI to low scale, hold Levemir. Prophylaxis: GI Prophylaxis Famotidine DVT Prophylaxis -- SCDs Heparin SQ Lines: Peripheral IVs 2. Will sign off and transfer care to [facility] Level 2 Reva Altman MD Jan 08, 2018 08:07
[2018-01-08] MEDS ORDERED: GLUCAGON 1 MG/ML VIAL OTHER PRN (08:15)
[2018-01-08] MEDS: INSULIN NovoLIN REGULAR SUPPLEMENTAL SCALE SQ SCH ×4 (08:15→19:52)
[2018-01-08] MEDS ORDERED: DEXTROSE 50% IN WATER 50 ML VIAL(D50) IV PUSH PRN (08:15)
[2018-01-08] MEDS: FAMOTIDINE 20 MG/2 ML VIAL IV PUSH SCH ×2 (08:47→19:51)
[2018-01-08] MEDS: SODIUM CHLORIDE 0.9% FLUSH 10 ML FLUSH IV FLUSH SCH ×2 (08:48→19:52)
[2018-01-08] MEDS: PRAVASTATIN SOD 40 MG TAB PO SCH (08:48)
[2018-01-08] MEDS: CARVEDILOL 3.125 MG TAB PO SCH ×2 (08:48→19:52)
[2018-01-08] MEDS: OSELTAMIVIR PHOSPHATE 75 MG CAP PO SCH ×2 (08:48→19:52)
[2018-01-08] MEDS: ALLOPURINOL 100 MG TAB PO SCH (08:48)
[2018-01-08] MEDS: AZITHROMYCIN INJ 500 MG in SODIUM CHLOR 0.9% 250 ML INJ 250 ML IV SCH (08:48)
[2018-01-08] MEDS: SACUBITRIL/VALSARTAN 24 MG-26 MG TAB PO SCH ×2 (08:48→19:52)
[2018-01-08 09:30] LABS: BANDS 13 % (0-6); LYMPHOCYTES 7 % (9-44); MONOCYTES 6 % (0-8); MYELOCYTES 1 % (0-0); NEUTROPHIL # MANUAL DIFF 11.9 TH/MM3 (1.8-7.7); OVALOCYTES 1+ (NORMAL); POLYS (SEG NEUTROPHILS) 73 % (16-70)
[2018-01-08] MEDS: RESP: ALBUTEROL 2.5 MG/IPRATROPIUM 0.5 MG NEB (SCH) NEB ×4 (11:24→23:17)
--- NOTE | 2018-01-08 12:27 | HHI.IDPN ---
Subjective Subjective Remarks ID Xcover for Dr Clancy chart was reviewed Patient is an 82-year-old male, presented initially at the emergency room on December 30 complaining of 3 day history of cough and shortness of breath. He was bringing up some brownish phlegm. Evaluation in the emergency room revealed infiltrates on the right side. He was not febrile. Observation was recommended to the patient but she did not want to stay in the hospital and so the patient was given antibiotics and was sent home. On the day of admission he apparently had severe shortness of breath, and EMS was called and he ended up getting intubated. His chest x-ray this time is showing infiltrates on the left side, and the infiltrate on the right side has been improving. The patient has a remote history of lung carcinoma and underwent partial resection of the right upper lung in the . He quit smoking 30 years ago. He notes subjective fevers and occasional diarrhea but denies any nausea, vomiting, or abdominal pain. . The patient's symptoms are mild to moderate, there are no current alleviating or exacerbating factors. He denies any diffuse myalgias, arthralgias, or lower extremity edema. He denies any history of pulmonary embolism or DVT. Patient has been on the vent. His white count remains elevated. Infectious disease consultation has been requested to evaluate the patient. pt was extubated yday he tolerates 3 L of NC O2 he has diarrhea, dignishiels in place He developped hematuria (pt with h/o bladder ca) leukocytosis, bandemia noted passed swallow eval, takes po Antibiotics Rocephin Zithromax Current Medications Medications (Trade) Dose Ordered Sig/Yaakov Route Start Time Stop Time Status Last Admin (Zyloprim) 100 mg DAILY PO 01/04/18 09:00 01/07/18 08:41 (Coreg) 3.125 mg BID PO 01/04/18 09:00 01/07/18 08:42 (Proscar) 5 mg DAILY PO 01/04/18 09:00 Future Hold 01/05/18 09:04 (Diabeta) 2.5 mg BIDAC PO 01/04/18 07:00 Future Hold (Entresto 24-26 Mg) 1 tab BID PO 01/04/18 09:00 01/07/18 08:42 (Flomax) 0.4 mg HS PO 01/04/18 21:00 Future Hold 01/05/18 22:25 (Pravachol) 40 mg DAILY PO 01/04/18 09:00 01/07/18 08:41 (NS Flush) 2 ml UNSCH PRN IV FLUSH 01/04/18 06:00 (NS Flush) 2 ml BID IV FLUSH 01/04/18 09:00 01/07/18 08:40 (Tylenol) 650 mg Q6H PRN PO 01/04/18 06:00 (Pepcid Inj) 20 mg Q12HR IV PUSH 01/04/18 09:00 01/07/18 08:42 (Zofran Inj) 4 mg Q6H PRN IV PUSH 01/04/18 06:00 (Restoril) 15 mg HS PRN PO 01/04/18 06:00 (Duoneb Neb) 1 ampule Q4HR NEB INH 01/04/18 08:00 01/07/18 11:35 (Duoneb Neb) 1 ampule Q2HR NEB PRN INH 01/04/18 06:00 (Heparin Inj) 5,000 units Q8H SQ 01/04/18 06:00 01/07/18 06:45 Miscellaneous Information 1 Q361D XX 01/04/18 06:00 (Chlorhexidine 2% Cloth) 3 pack Taper DAILY@04 TOP 01/05/18 04:00 01/01/19 03:59 01/07/18 04:00 (Chlorhexidine 2% Cloth) 3 pack UNSCH PRN TOP 01/04/18 06:00 (Azra-Colace) 1 tab BID PO 01/04/18 09:00 01/07/18 08:42 (Milk Of Magnesia Liq) 30 ml Q12H PRN PO 01/04/18 06:00 (Senokot) 17.2 mg Q12H PRN PO 01/04/18 06:00 (Dulcolax Supp) 10 mg DAILY PRN RECTAL 01/04/18 06:00 (Lactulose Liq) 30 ml DAILY PRN PO 01/04/18 06:00 (SoluMEDROL INJ) 40 mg Q12H IV PUSH 01/04/18 06:00 01/07/18 06:45 (Tamiflu) 75 mg BID PO 01/04/18 09:00 01/09/18 08:59 01/07/18 08:41 Azithromycin 500 mg/Sodium Chloride 250 ml @ 250 mls/hr Q24H IV 01/04/18 08:00 01/07/18 08:44 Midazolam HCl 100 ml @ 2 mls/hr TITRATE PRN IV 01/04/18 07:00 01/07/18 11:40 (Peridex 0.12% Liq) 15 ml BID@08,20 MT 01/04/18 08:00 01/07/18 08:43 (D50w (Vial) Inj) 50 ml UNSCH PRN IV PUSH 01/04/18 07:30 (Glucagon Inj) 1 mg UNSCH PRN OTHER 01/04/18 07:30 (NovoLOG SUPPLEMENTAL SCALE) 1 ACHS SLIDING SCALE SQ 01/04/18 08:00 01/07/18 11:39 Fentanyl Citrate 250 ml @ 5 mls/hr TITRATE PRN IV 01/04/18 11:30 01/06/18 04:57 (Brethine Inj) 1 mg UNSCH PRN SQ 01/05/18 10:45 Ceftriaxone Sodium 2000 mg/ Sodium Chloride 100 ml @ 200 mls/hr Q24H IV 01/06/18 15:00 01/06/18 15:02 (Levemir Inj) 15 units Q12HR SQ 01/07/18 09:00 01/07/18 08:41 Sodium Phosphate 15 mmol/Sodium Chloride 155 ml @ 38.75 mls/ hr ONCE ONCE IV 01/07/18 14:00 01/07/18 17:59 Lines Line with no evidence of infection Past Medical History COPD Lung cancer status post right upper lobectomy Vocal Cord squamous cell CA, S/P XRT, completed Rx 2010, followed by Dr Marina and Dr Sosa, last seen Jun 2017 and no recurrence History of bladder cancer, S/P TURBT Diabetes mellitus Coronary artery disease status post CABG Hypertension Atrial fibrillation Congestive heart failure Status postcardiac ablation Past Surgical History AICD placement TURBT Vocal Cord biopsy RUL lobectomy CABG Allergies: Coded Allergies: No Known Allergies (Verified Adverse Reaction, Unknown, 01/04/18) Objective . Vital Signs Date Time Temp Pulse Resp B/P (MAP) Pulse Ox O2 Delivery O2 Flow Rate FiO2 01/08/18 10:00 69 01/08/18 08:00 69 01/08/18 08:00 97.6 69 25 128/79 (95) 98 01/08/18 07:26 96 Nasal Cannula 3.00 01/08/18 06:00 69 01/08/18 04:00 69 01/08/18 04:00 97.5 69 26 125/66 (85) 01/08/18 03:29 69 Nasal Cannula 3.00 01/08/18 02:00 69 01/08/18 00:00 96.4 69 25 133/77 (95) 100 01/08/18 00:00 69 01/07/18 23:51 97 Nasal Cannula 3.00 01/07/18 22:00 69 01/07/18 20:00 69 01/07/18 20:00 98.2 69 31 134/80 (98) 100 01/07/18 19:54 98 Nasal Cannula 3.00 01/07/18 18:00 69 01/07/18 16:00 98.6 69 20 134/68 (90) 100 01/07/18 16:00 69 01/07/18 15:57 100 Mask 6 01/07/18 14:00 69 01/08/18 01/08/18 01/09/18 15:00 23:00 07:00 Intake Total 350 ml Balance 350 ml Intake IV Total 350 ml . Laboratory Tests Test 01/07/18 05:40 01/08/18 03:20 White Blood Count 12.3 TH/MM3 13.7 TH/MM3 Red Blood Count 4.19 MIL/MM3 4.33 MIL/MM3 Hemoglobin 10.2 GM/DL 10.7 GM/DL Hematocrit 33.2 % 34.1 % Mean Corpuscular Volume 79.4 FL 78.6 FL Mean Corpuscular Hemoglobin 24.4 PG 24.6 PG Mean Corpuscular Hemoglobin Concent 30.7 % 31.3 % Red Cell Distribution Width 19.1 % 18.7 % Platelet Count 153 TH/MM3 159 TH/MM3 Mean Platelet Volume 8.2 FL 8.1 FL Neutrophils (%) (Auto) 96.1 % 94.6 % Lymphocytes (%) (Auto) 1.0 % 1.4 % Monocytes (%) (Auto) 2.8 % 3.8 % Eosinophils (%) (Auto) 0.0 % 0.0 % Basophils (%) (Auto) 0.1 % 0.2 % Neutrophils # (Auto) 11.8 TH/MM3 12.9 TH/MM3 Lymphocytes # (Auto) 0.1 TH/MM3 0.2 TH/MM3 Monocytes # (Auto) 0.3 TH/MM3 0.5 TH/MM3 Eosinophils # (Auto) 0.0 TH/MM3 0.0 TH/MM3 Basophils # (Auto) 0.0 TH/MM3 0.0 TH/MM3 CBC Comment DIFF FINAL AUTO DIFF Differential Comment FINAL DIFF MANUAL Differential Total Cells Counted 100 Neutrophils % (Manual) 73 % Band Neutrophils % 13 % Lymphocytes % 7 % Monocytes % 6 % Neutrophils # (Manual) 11.9 TH/MM3 Myelocytes 1 % Platelet Estimate NORMAL Platelet Morphology Comment NORMAL Ovalocytes 1+ Laboratory Tests Test 01/06/18 14:15 01/07/18 05:40 01/08/18 03:20 Potassium Level 4.4 MEQ/L 4.5 MEQ/L 3.9 MEQ/L Magnesium Level 2.6 MG/DL 2.8 MG/DL 2.7 MG/DL Blood Urea Nitrogen 30 MG/DL 29 MG/DL Creatinine 1.15 MG/DL 1.01 MG/DL Random Glucose 334 MG/DL 91 MG/DL Calcium Level 7.8 MG/DL 8.1 MG/DL Phosphorus Level 2.2 MG/DL 2.9 MG/DL Sodium Level 144 MEQ/L 146 MEQ/L Chloride Level 109 MEQ/L 109 MEQ/L Carbon Dioxide Level 25.4 MEQ/L 28.9 MEQ/L Anion Gap 10 MEQ/L 8 MEQ/L Estimat Glomerular Filtration Rate 61 ML/MIN 71 ML/MIN B-Type Natriuretic Peptide 1199 PG/ML Imaging Last Impressions Chest X-Ray 01/08/18 0600 Signed Impressions: Service Date/Time: December 03:52 - CONCLUSION: Persistent left lower lobe consolidation and small right pleural effusion. Wade Irizarry MD Physical Exam GENERAL: awake and alert, not in respiratory distress. SKIN: Warm and dry. No generalized rash, no ecchymoses and no evidence of embolic lesions. HEAD: Atraumatic. Normocephalic. EYES: Pale conjunctiva. Non icteruic EARS, NOSE AND THROAT: Edentulous; moisyt mucosae . No oral thrush. NECK: Trachea midline CARDIOVASCULAR: Regular rate and rhythm. No murmurs, rubs or gallops heard RESPIRATORY: Clear to auscultation. Breath sounds equal bilaterally. No rales , wheezing or rhonchi ABDOMEN: Soft, non-tender, nondistended. Bowel sounds present and normoactive. No guarding. No rebound. No organomegaly. Smalll amount of liquid brown stool in dignshield bag EXTREMITIES: No clubbing, cyanosis, or edema.No joint effusion, has good ROM. No calf tenderness. Well perfused and warm. : ramirez in place with quite bloody urine NEUROLOGICAL: Awake and alert. Cranial nerves grossly intact. Motor grossly within normal limits. PSYCHIATRIC: Normal affect, calm and cooperative. LINE: No evidence of infection Assessment & Plan Remarks IMPRESSION Pneumonia, CAP Respiratory failure, resolved COPD Hx RUL lobectomy, Hx voxal cord CA, S/P XRT Leukocytosis, bandemia today - due to PNA and steroids most likely New hematuria Abx associated diarrhea RECOMMENDATION cont Rocephin and Zithromax UA/C+S reflex C.diff dw Maine Tinoco MD Jan 08, 2018 12:27
[2018-01-08] MEDS: cefTRIAXone INJ 2,000 MG in SODIUM CHLORIDE 0.9% INJ 100 ML IV SCH (13:50)
[2018-01-08 14:41] LABS: BACTERIA, URINE FEW /hpf; BILIRUBIN, URINE NEG (NEG); BLOOD, URINE SMALL (NEG); GLUCOSE,URINE NEG (NEG); KETONE, URINE NEG (NEG); NITRITE,URINE NEG (NEG); PH, URINE 6.5 (5.0-8.5); URINE COLOR YELLOW (YELLW/STRAW); URINE LEUKOCYTE ESTERASE NEG (NEG)
[2018-01-08 15:00] LABS: MYCOPLASMA PNEUMONIAE IGG Positive (Negative); MYCOPLASMA PNEUMONIAE IGM Negative (Negative)
--- NOTE | 2018-01-08 17:13 | ECHRPT ---
Indication: CHF CONCLUSIONS The left ventricular systolic function is severely reduced with an estimated ejection fraction less than 20%. Moderately dilated left ventricle. Mild concentric left ventricular hypertrophy. There is global left ventricular dysfunction. The right ventricle is moderately dilated. A pacemaker wire is noted. Moderate mitral valve regurgitation. There is moderate tricuspid regurgitation. The estimated pulmonary arterial pressure is 55.7 mmHg. Trivial pulmonary valve regurgitation. BP: 128 / 79 HR: 69 Rhythm: Sinus MEASUREMENTS (Male / Female) Normal Values Technical Quality:Good 2D ECHO LV Diastolic Diameter PLAX 5.3 cm 4.2 - 5.9 / 3.9 - 5.3 cm LV Systolic Diameter PLAX 5.1 cm IVS Diastolic Thickness 1.2 cm 0.6 - 1.0 / 0.6 - 0.9 cm LVPW Diastolic Thickness 1.2 cm 0.6 - 1.0 / 0.6 - 0.9 cm LV Relative Wall Thickness 0.4 RV Internal Dim ED PLAX 4.0 cm LVOT Diameter 1.9 cm LA Systolic Diameter LX 5.3 cm 3.0 - 4.0 / 2.7 - 3.8 cm LV Ejection Fraction MOD 4C 17.5 % LV Cardiac Index MOD 4C 1513.5 cm/minm LV Ejection Fraction 4C AL 21.1 % LV Cardiac Index 4C AL 1888.8 cm/minm M-MODE Aortic Root Diameter MM 3.2 cm LA Systolic Diameter MM 4.9 cm LA Ao Ratio MM 1.5 AV Cusp Separation MM 2.3 cm DOPPLER AV Peak Velocity 116.0 cm/s AV Peak Gradient 5.4 mmHg LVOT Peak Velocity 74.0 cm/s LVOT Peak Gradient 2.2 mmHg AV Area Cont Eq pk 1.8 cm MV Area PHT 4.2 cm Mitral E Point Velocity 130.0 cm/s Mitral A Point Velocity 53.3 cm/s Mitral E to A Ratio 2.4 LV E' Lateral Velocity 7.3 cm/s Mitral E to LV E' Lateral Ratio 17.7 TR Peak Velocity 338.0 cm/s TR Peak Gradient 45.7 mmHg Right Atrial Pressure 10.0 mmHg Pulmonary Artery Systolic Pressu 55.7 mmHg Right Ventricular Systolic Press 55.7 mmHg PV Peak Velocity 86.9 cm/s PV Peak Gradient 3.0 mmHg FINDINGS LEFT VENTRICLE The left ventricular systolic function is severely reduced with an estimated ejection fraction less than 20%. Moderately dilated left ventricle. Mild concentric left ventricular hypertrophy. There is global left ventricular dysfunction. RIGHT VENTRICLE The right ventricle is moderately dilated. A pacemaker wire is noted. LEFT ATRIUM The left atrial size is normal. RIGHT ATRIUM The right atrial size is normal. ATRIAL SEPTUM Normal atrial septal thickness without atrial level shunting by limited color doppler interrogation. AORTA The aortic root and proximal ascending aorta are normal in size on limited imaging. MITRAL VALVE Structurally normal mitral valve. Mild mitral valve regurgitation. AORTIC VALVE Trileaflet aortic valve. No aortic valve stenosis or regurgitation. TRICUSPID VALVE Structurally normal tricuspid valve. There is moderate tricuspid regurgitation. The estimated pulmonary arterial pressure is 55.7 mmHg. PULMONARY VALVE Trivial pulmonary valve regurgitation. VESSELS The inferior vena cava is normal in size. PERICARDIUM No pericardial effusion. Dave Bennett MD, FACC, [facility] [place] (Electronically Signed) Final Date:08 January 2018 17:13
[2018-01-09] VITALS (14 sets, daily range): BP systolic 123–144; BP diastolic 70–76; PULSE 69–73; RESP 18–24; TEMP 97.5–98; O2SAT 87–100
[2018-01-09] MEDS: RESP: ALBUTEROL 2.5 MG/IPRATROPIUM 0.5 MG NEB (SCH) NEB ×5 (03:23→20:00)
[2018-01-09] MEDS: INSULIN NovoLIN REGULAR SUPPLEMENTAL SCALE SQ SCH ×7 (04:00→23:32)
[2018-01-09] MEDS: CHLORHEXIDINE GLUCONATE 2 % 1 PACK (2 CLOTHS) TOP SCH (04:00)
[2018-01-09 04:26] LABS: AUTOMATED NEUTROPHIL # 8.1 TH/MM3 (1.8-7.7); BASOPHIL % 0.1 % (0.0-2.0); HEMATOCRIT 32.5 % (39.0-51.0); HEMOGLOBIN 10.4 GM/DL (13.0-17.0); LYMPH % 2.3 % (9.0-44.0); LYMPHOCYTE # 0.2 TH/MM3 (1.0-4.8); MEAN CELL VOLUME 78.7 FL (80.0-100.0); MEAN CORPUSCULAR HEMOGLOBIN 25.1 PG (27.0-34.0); MEAN CORPUSCULAR HGB CONC 31.9 % (32.0-36.0); MEAN PLATELET VOLUME 8.4 FL (7.0-11.0); MONO % 3.5 % (0.0-8.0); MONOCYTE # 0.3 TH/MM3 (0-0.9); NEUT % 94.1 % (16.0-70.0); PLATELET COUNT 134 TH/MM3 (150-450); RED BLOOD COUNT 4.13 MIL/MM3 (4.50-5.90); RED CELL DISTRIBUTION WIDTH 19.2 % (11.6-17.2); WHITE BLOOD COUNT 8.7 TH/MM3 (4.0-11.0)
[2018-01-09] MEDS: HEPARIN SODIUM - SQ 10,000 UNITS/ML VIAL SQ SCH ×3 (05:02→20:24)
[2018-01-09] MEDS: methylPREDNISolone SOD SUCC 40 MG/1 ML VIAL IV PUSH SCH ×2 (05:02→17:06)
[2018-01-09 05:03] LABS: ALBUMIN 2.6 GM/DL (3.4-5.0); ALKALINE PHOSPHATASE 125 U/L (45-117); ALT (GPT) 45 U/L (12-78); AST (GOT) 25 U/L (15-37); BICARBONATE 28.9 MEQ/L (21.0-32.0); BLOOD UREA NITROGEN 27 MG/DL (7-18); CALCIUM 7.8 MG/DL (8.5-10.1); CHLORIDE 107 MEQ/L (98-107); CREATININE 1.03 MG/DL (0.60-1.30); FREE T4 0.59 NG/DL (0.76-1.46); GLOMERULAR FILTRATION RATE 69 ML/MIN (>89); GLUCOSE,RANDOM 203 MG/DL (74-106); MAGNESIUM 2.7 MG/DL (1.5-2.5); PHOSPHORUS 3.2 MG/DL (2.5-4.9); SODIUM (NA) 143 MEQ/L (136-145); TOTAL BILIRUBIN ADULT 0.7 MG/DL (0.2-1.0); TOTAL PROTEIN 5.8 GM/DL (6.4-8.2)
[2018-01-09] MEDS: DOCUSATE SODIUM 50 MG/SENNA 8.6 MG TAB PO SCH ×2 (07:14→20:24)
[2018-01-09] MEDS: CHLORHEXIDINE 0.12% (ORAL KIT) 15 ML CUP MT SCH ×2 (08:00→20:00)
[2018-01-09] MEDS: PRAVASTATIN SOD 40 MG TAB PO SCH (08:47)
[2018-01-09] MEDS: CARVEDILOL 3.125 MG TAB PO SCH ×2 (08:47→20:24)
[2018-01-09] MEDS: AZITHROMYCIN INJ 500 MG in SODIUM CHLOR 0.9% 250 ML INJ 250 ML IV SCH (08:47)
[2018-01-09] MEDS: ALLOPURINOL 100 MG TAB PO SCH (08:47)
[2018-01-09] MEDS: SACUBITRIL/VALSARTAN 24 MG-26 MG TAB PO SCH ×2 (08:47→20:25)
[2018-01-09] MEDS: FAMOTIDINE 20 MG/2 ML VIAL IV PUSH SCH ×2 (08:48→20:24)
[2018-01-09] MEDS: SODIUM CHLORIDE 0.9% FLUSH 10 ML FLUSH IV FLUSH SCH ×2 (08:48→20:24)
--- NOTE | 2018-01-09 12:49 | HHI.PR ---
Subjective Remarks Follow-up pneumonia. The patient states that he is feeling better today, but he feels very weak. Denies chest pain. He does report productive cough. Shortness of breath has improved. Objective Vitals Vital Signs Date Time Temp Pulse Resp B/P (MAP) Pulse Ox O2 Delivery O2 Flow Rate FiO2 01/09/18 10:00 69 01/09/18 08:00 97.8 69 21 144/76 (98) 95 01/09/18 08:00 69 01/09/18 07:20 93 01/09/18 07:00 97 Nasal Cannula 1.00 01/09/18 06:00 69 01/09/18 04:00 69 01/09/18 04:00 97.8 69 20 123/70 (87) 87 01/09/18 03:23 96 21 01/09/18 02:00 69 01/09/18 00:00 69 01/09/18 00:00 97.7 69 18 142/75 (97) 95 01/08/18 23:17 94 21 01/08/18 22:00 69 01/08/18 20:41 98 Nasal Cannula 3.00 01/08/18 20:00 69 01/08/18 20:00 97.9 69 20 139/74 (95) 01/08/18 19:00 97 Nasal Cannula 1.00 01/08/18 18:41 98 Nasal Cannula 1.00 01/08/18 18:00 69 01/08/18 16:49 98 Nasal Cannula 2.00 01/08/18 16:00 97.8 69 19 143/75 (97) 100 01/08/18 16:00 69 01/08/18 14:00 69 I/O 01/08/18 01/08/18 01/08/18 01/09/18 01/09/18 01/09/18 07:00 15:00 23:00 07:00 15:00 23:00 Intake Total 0 ml 350 ml 460 ml 300 ml Output Total 950 ml 700 ml 500 ml Balance -950 ml 350 ml -240 ml -200 ml Intake Oral 360 ml 300 ml IV Total 0 ml 350 ml 100 ml Output Urine Total 950 ml 600 ml 500 ml Gastric Drainage Total 100 ml # Bowel Movements 5 3 1 Result Diagram: 01/09/18 0354 01/09/18 0354 Imaging Last Impressions Chest X-Ray 01/08/18 0600 Signed Impressions: Service Date/Time: December 03:52 - CONCLUSION: Persistent left lower lobe consolidation and small right pleural effusion. Wade Irizarry MD Objective Remarks General: Elderly male in no acute distress. Heart: Regular rate and rhythm. No murmur. Lungs: Clear to auscultation bilaterally. No wheezes, rales, or rhonchi. Breathing is nonlabored. Abdomen: Soft, nontender, nondistended. Extremities: No lower extremity edema. Psych: Alert and oriented. Procedures None Urinary Catheter: Yes Assessment to: Remove Vascular Central Line Catheter: No A/P Assessment and Plan 1. Pneumonia: Appreciate pulmonology, infectious disease recommendations. Continue antibiotics per infectious disease recommendations. Mycoplasma antigen positive. Supplemental oxygen as needed. 2. Acute hypoxemic respiratory failure: Resolved. Stable on room air at this time. Continue bronchodilators, steroids. Appreciate pulmonology recommendations. 3. Coronary artery disease: Status post CABG in 1996. Currently asymptomatic. Continue statin. 4. Chronic systolic congestive heart failure: Echocardiogram shows ejection fraction less than 20%. Monitor strict intake/output. BNP is significantly elevated. 5. Diabetes mellitus: Levemir on hold. Monitor Accu-Cheks and cover with sliding scale insulin. 6. GI prophylaxis: Famotidine. 7. DVT prophylaxis: SCDs, heparin. 8. Generalized weakness: Continue physical therapy. Discharge Planning Transfer to medical/surgical floor with telemetry. Pelon Edwards MD Jan 09, 2018 12:49
[2018-01-09] MEDS: cefTRIAXone INJ 2,000 MG in SODIUM CHLORIDE 0.9% INJ 100 ML IV SCH (13:17)
--- NOTE | 2018-01-09 18:25 | HHI.PR ---
Addendum to Inpatient Note Additional Information Pt seen earliuer today around 1200 Full note to follow Maine Bennett MD Jan 09, 2018 18:25
[2018-01-09 19:10] LABS: HEMOGLOBIN A1C 8.6 % (4.3-6.0)
--- NOTE | 2018-01-09 23:45 | HHI.IDPN ---
Subjective Subjective Remarks ID [email or web address] for Dr Julieth adams, pt was seen earlier today pt is doing well On RA C.diff negative leukocytosis, bandemia resolved passed swallow eval, takes po Antibiotics Rocephin Zithromax Lines Line with no evidence of infection Past Medical History COPD Lung cancer status post right upper lobectomy Vocal Cord squamous cell CA, S/P XRT, completed Rx 2010, followed by Dr Marina and Dr Sosa, last seen Jun 2017 and no recurrence History of bladder cancer, S/P TURBT Diabetes mellitus Coronary artery disease status post CABG Hypertension Atrial fibrillation Congestive heart failure Status postcardiac ablation Past Surgical History AICD placement TURBT Vocal Cord biopsy RUL lobectomy CABG Allergies: Coded Allergies: No Known Allergies (Verified Adverse Reaction, Unknown, 01/04/18) Objective . Vital Signs Date Time Temp Pulse Resp B/P (MAP) Pulse Ox O2 Delivery O2 Flow Rate FiO2 01/09/18 22:22 97.5 70 18 143/76 (98) 93 01/09/18 20:02 95 21 01/09/18 20:00 98.0 69 128/71 (90) 94 01/09/18 20:00 69 01/09/18 19:00 100 Room Air 01/09/18 16:00 69 01/09/18 16:00 98.0 69 24 139/76 (97) 100 01/09/18 12:00 69 01/09/18 12:00 97.6 69 21 128/72 (90) 97 01/09/18 10:00 69 01/09/18 08:00 97.8 69 21 144/76 (98) 95 01/09/18 08:00 69 01/09/18 07:20 93 01/09/18 07:00 97 Nasal Cannula 1.00 01/09/18 06:00 69 01/09/18 04:00 69 01/09/18 04:00 97.8 69 20 123/70 (87) 87 01/09/18 03:23 96 21 01/09/18 02:00 69 01/09/18 00:00 69 01/09/18 00:00 97.7 69 18 142/75 (97) 95 01/09/18 01/09/18 01/10/18 15:00 23:00 07:00 Intake Total 350 ml 360 ml Output Total 300 ml Balance 350 ml 60 ml Intake Oral 360 ml IV Total 350 ml Output Urine Total 300 ml # Bowel Movements 4 . Laboratory Tests Test 01/08/18 03:20 01/09/18 03:54 White Blood Count 13.7 TH/MM3 8.7 TH/MM3 Red Blood Count 4.33 MIL/MM3 4.13 MIL/MM3 Hemoglobin 10.7 GM/DL 10.4 GM/DL Hematocrit 34.1 % 32.5 % Mean Corpuscular Volume 78.6 FL 78.7 FL Mean Corpuscular Hemoglobin 24.6 PG 25.1 PG Mean Corpuscular Hemoglobin Concent 31.3 % 31.9 % Red Cell Distribution Width 18.7 % 19.2 % Platelet Count 159 TH/MM3 134 TH/MM3 Mean Platelet Volume 8.1 FL 8.4 FL Neutrophils (%) (Auto) 94.6 % 94.1 % Lymphocytes (%) (Auto) 1.4 % 2.3 % Monocytes (%) (Auto) 3.8 % 3.5 % Eosinophils (%) (Auto) 0.0 % 0.0 % Basophils (%) (Auto) 0.2 % 0.1 % Neutrophils # (Auto) 12.9 TH/MM3 8.1 TH/MM3 Lymphocytes # (Auto) 0.2 TH/MM3 0.2 TH/MM3 Monocytes # (Auto) 0.5 TH/MM3 0.3 TH/MM3 Eosinophils # (Auto) 0.0 TH/MM3 0.0 TH/MM3 Basophils # (Auto) 0.0 TH/MM3 0.0 TH/MM3 CBC Comment AUTO DIFF DIFF FINAL Differential Total Cells Counted 100 Neutrophils % (Manual) 73 % Band Neutrophils % 13 % Lymphocytes % 7 % Monocytes % 6 % Neutrophils # (Manual) 11.9 TH/MM3 Myelocytes 1 % Differential Comment FINAL DIFF MANUAL Platelet Estimate NORMAL Platelet Morphology Comment NORMAL Ovalocytes 1+ Laboratory Tests Test 01/08/18 03:20 01/09/18 03:54 Blood Urea Nitrogen 29 MG/DL 27 MG/DL Creatinine 1.01 MG/DL 1.03 MG/DL Random Glucose 91 MG/DL 203 MG/DL Calcium Level 8.1 MG/DL 7.8 MG/DL Phosphorus Level 2.9 MG/DL 3.2 MG/DL Magnesium Level 2.7 MG/DL 2.7 MG/DL Sodium Level 146 MEQ/L 143 MEQ/L Potassium Level 3.9 MEQ/L 4.2 MEQ/L Chloride Level 109 MEQ/L 107 MEQ/L Carbon Dioxide Level 28.9 MEQ/L 28.9 MEQ/L Anion Gap 8 MEQ/L 7 MEQ/L Estimat Glomerular Filtration Rate 71 ML/MIN 69 ML/MIN Total Protein 5.8 GM/DL Albumin 2.6 GM/DL Alkaline Phosphatase 125 U/L Aspartate Amino Transf (AST/SGOT) 25 U/L Alanine Aminotransferase (ALT/SGPT) 45 U/L Total Bilirubin 0.7 MG/DL Hemoglobin A1c 8.6 % B-Type Natriuretic Peptide GREATER THAN 5000 PG/ML Free Thyroxine 0.59 NG/DL Thyroid Stimulating Hormone 3rd Gen 0.457 uIU/ML Microbiology Date/Time Source Procedure Growth Status 01/08/18 13:11 Urine Catheterized Urine Urine Culture - Preliminary NO GROWTH IN 24 HOURS. Resulted Imaging Last Impressions Chest X-Ray 01/08/18 0600 Signed Impressions: Service Date/Time: December 03:52 - CONCLUSION: Persistent left lower lobe consolidation and small right pleural effusion. Wade Irizarry MD Physical Exam GENERAL: awake and alert, not in respiratory distress. SKIN: Warm and dry. No generalized rash, no ecchymoses and no evidence of embolic lesions. CARDIOVASCULAR: Regular rate and rhythm. No murmurs, rubs or gallops heard RESPIRATORY: Clear to auscultation. Breath sounds equal bilaterally. No rales , wheezing or rhonchi ABDOMEN: Soft, non-tender, nondistended. Bowel sounds present and normoactive. No guarding. No rebound. No organomegaly. Smalll amount of liquid brown stool in dignshield bag EXTREMITIES: No clubbing, cyanosis, or edema.No joint effusion, has good ROM. No calf tenderness. Well perfused and warm. : ramirez in place with more clear urine NEUROLOGICAL: Awake and alert. Cranial nerves grossly intact. Motor grossly within normal limits. PSYCHIATRIC: Normal affect, calm and cooperative. LINE: No evidence of infection Assessment & Plan Remarks IMPRESSION Pneumonia, CAP Respiratory failure, resolved COPD Hx RUL lobectomy, Hx voxal cord CA, S/P XRT Leukocytosis, bandemia today - due to PNA and steroids most likely New hematuria - UA w/o puria Abx associated diarrhea RECOMMENDATION conmplete 7 days of abx cont Rocephin and Zithromax fu C+S reflex Maine Bennett MD Jan 09, 2018 23:45
[2018-01-10] VITALS (10 sets, daily range): BP systolic 107–146; BP diastolic 60–83; PULSE 60–72; RESP 18–20; TEMP 97.2–98.1; O2SAT 93–99
[2018-01-10] MEDS: RESP: ALBUTEROL 2.5 MG/IPRATROPIUM 0.5 MG NEB (SCH) NEB ×7 (00:55→23:31)
[2018-01-10] MEDS: INSULIN NovoLIN REGULAR SUPPLEMENTAL SCALE SQ SCH ×5 (03:26→22:21)
[2018-01-10] MEDS: CHLORHEXIDINE GLUCONATE 2 % 1 PACK (2 CLOTHS) TOP SCH (03:26)
[2018-01-10 03:53] LABS: C PNEUMO IGM <1:10 (<1:10); C PNEUMO INTERPRETATION PAST INFECTION
[2018-01-10] MEDS: HEPARIN SODIUM - SQ 10,000 UNITS/ML VIAL SQ SCH ×3 (05:49→22:19)
[2018-01-10] MEDS: methylPREDNISolone SOD SUCC 40 MG/1 ML VIAL IV PUSH SCH ×2 (05:49→16:49)
[2018-01-10] MEDS: CHLORHEXIDINE 0.12% (ORAL KIT) 15 ML CUP MT SCH ×2 (08:00→20:00)
[2018-01-10] MEDS: CARVEDILOL 3.125 MG TAB PO SCH ×2 (09:00→22:15)
[2018-01-10] MEDS: SACUBITRIL/VALSARTAN 24 MG-26 MG TAB PO SCH ×2 (09:00→22:17)
[2018-01-10] MEDS: DOCUSATE SODIUM 50 MG/SENNA 8.6 MG TAB PO SCH ×2 (09:00→22:14)
[2018-01-10] MEDS: AZITHROMYCIN INJ 500 MG in SODIUM CHLOR 0.9% 250 ML INJ 250 ML IV SCH (09:26)
[2018-01-10] MEDS: ALLOPURINOL 100 MG TAB PO SCH (09:27)
[2018-01-10] MEDS: PRAVASTATIN SOD 40 MG TAB PO SCH (09:27)
[2018-01-10] MEDS: FAMOTIDINE 20 MG/2 ML VIAL IV PUSH SCH ×2 (09:27→22:18)
[2018-01-10] MEDS: SODIUM CHLORIDE 0.9% FLUSH 10 ML FLUSH IV FLUSH SCH ×2 (09:27→22:19)
[2018-01-10 10:07] LABS: AUTOMATED NEUTROPHIL # 11.4 TH/MM3 (1.8-7.7); BASOPHIL % 0.1 % (0.0-2.0); HEMATOCRIT 35.2 % (39.0-51.0); LYMPH % 1.7 % (9.0-44.0); LYMPHOCYTE # 0.2 TH/MM3 (1.0-4.8); MEAN CELL VOLUME 79.4 FL (80.0-100.0); MEAN CORPUSCULAR HEMOGLOBIN 24.9 PG (27.0-34.0); MEAN CORPUSCULAR HGB CONC 31.3 % (32.0-36.0); MEAN PLATELET VOLUME 8.4 FL (7.0-11.0); MONO % 4.8 % (0.0-8.0); MONOCYTE # 0.6 TH/MM3 (0-0.9); NEUT % 93.4 % (16.0-70.0); PLATELET COUNT 163 TH/MM3 (150-450); RED BLOOD COUNT 4.43 MIL/MM3 (4.50-5.90); RED CELL DISTRIBUTION WIDTH 19.3 % (11.6-17.2); WHITE BLOOD COUNT 12.2 TH/MM3 (4.0-11.0)
[2018-01-10 10:22] LABS: BICARBONATE 25.1 MEQ/L (21.0-32.0); CALCIUM 8.1 MG/DL (8.5-10.1); CREATININE 1.21 MG/DL (0.60-1.30)
--- NOTE | 2018-01-10 13:20 | HHI.PR ---
Subjective Remarks Resting comfortably in bed No event overnight Denied chest and or short of breath No fever or chills Objective Vitals Vital Signs Date Time Temp Pulse Resp B/P (MAP) Pulse Ox O2 Delivery O2 Flow Rate FiO2 01/10/18 09:49 98 Nasal Cannula 2.00 01/10/18 08:00 70 01/10/18 08:00 97.2 70 20 107/60 (76) 98 01/10/18 04:00 98.1 71 18 146/69 (94) 93 01/10/18 00:17 98.1 70 18 130/80 (97) 93 01/10/18 00:00 Room Air 01/10/18 00:00 71 01/09/18 22:22 97.5 70 18 143/76 (98) 93 01/09/18 20:02 95 21 01/09/18 20:00 98.0 69 23 128/71 (90) 94 01/09/18 20:00 69 01/09/18 19:00 100 Room Air 01/09/18 16:00 69 01/09/18 16:00 98.0 69 24 139/76 (97) 100 I/O 01/09/18 01/09/18 01/09/18 01/10/18 01/10/18 01/10/18 07:00 15:00 23:00 07:00 15:00 23:00 Intake Total 300 ml 350 ml 360 ml 240 ml Output Total 500 ml 300 ml 0 ml Balance -200 ml 350 ml 60 ml 240 ml Intake Oral 300 ml 360 ml 240 ml IV Total 350 ml Output Urine Total 500 ml 300 ml 0 ml # Bowel Movements 1 4 1 Result Diagram: 01/10/18 0801 01/10/18 0819 Objective Remarks GENERAL: This is a well-nourished, well-developed patient, in no apparent distress. SKIN: No rashes, warm and dry HEAD: Atraumatic. Normocephalic. EYES: PERRLA . No scleral icterus. ENT: No bleeding, or drainage, Airway patent. NECK: Trachea midline. Supple CARDIOVASCULAR: RRR, no gallops, or rubs. RESPIRATORY: Fair air entry bilaterally. No W, R, or R GASTROINTESTINAL: Abdomen soft, non-tender, nondistended. Positive bowel sounds MUSCULOSKELETAL: Extremities without clubbing, cyanosis, or edema. Pedal pulses appreciated NEUROLOGICAL: Awake and alert. Moves all extremity. Normal speech.no focal neurological deficit Procedures None A/P Assessment and Plan 01/10: Continue antibiotic per ID, WBC 12 K with 93% left shift. Blood glucose still uncontrolled I will resume his Levemir at 12 units twice daily and continue covering with insulin sliding scale 1. Pneumonia: Appreciate pulmonology, infectious disease recommendations. Continue antibiotics per infectious disease recommendations. Mycoplasma antigen positive. Supplemental oxygen as needed. 2. Acute hypoxemic respiratory failure: Resolved. Stable on room air at this time. Continue bronchodilators, steroids. Appreciate pulmonology recommendations. 3. Coronary artery disease: Status post CABG in 1996. Currently asymptomatic. Continue statin. 4. Chronic systolic congestive heart failure: Echocardiogram shows ejection fraction less than 20%. Monitor strict intake/output. BNP is significantly elevated. 5. Diabetes mellitus: Levemir on hold. Monitor Accu-Cheks and cover with sliding scale insulin. 6. GI prophylaxis: Famotidine. 7. DVT prophylaxis: SCDs, heparin. 8. Generalized weakness: Continue physical therapy. Ally Beltran MD Jan 10, 2018 13:19
[2018-01-10] MEDS: cefTRIAXone INJ 2,000 MG in SODIUM CHLORIDE 0.9% INJ 100 ML IV SCH (15:00)
[2018-01-10] MEDS: INSULIN DETEMIR 100 UNITS/ML VIAL SQ SCH (22:20)
[2018-01-11] VITALS (10 sets, daily range): BP systolic 112–142; BP diastolic 57–85; PULSE 69–72; RESP 18–20; TEMP 97.2–98; O2SAT 92–100
[2018-01-11] MEDS: INSULIN NovoLIN REGULAR SUPPLEMENTAL SCALE SQ SCH ×6 (00:50→20:00)
[2018-01-11] MEDS: RESP: ALBUTEROL 2.5 MG/IPRATROPIUM 0.5 MG NEB (SCH) NEB ×5 (03:51→19:52)
[2018-01-11] MEDS: CHLORHEXIDINE GLUCONATE 2 % 1 PACK (2 CLOTHS) TOP SCH (04:00)
[2018-01-11] MEDS: methylPREDNISolone SOD SUCC 40 MG/1 ML VIAL IV PUSH SCH (05:20)
[2018-01-11] MEDS: HEPARIN SODIUM - SQ 10,000 UNITS/ML VIAL SQ SCH ×3 (05:22→20:55)
[2018-01-11] MEDS: CHLORHEXIDINE 0.12% (ORAL KIT) 15 ML CUP MT SCH ×2 (08:00→20:00)
[2018-01-11] MEDS: FAMOTIDINE 20 MG/2 ML VIAL IV PUSH SCH ×2 (08:56→20:54)
[2018-01-11] MEDS: ALLOPURINOL 100 MG TAB PO SCH (08:56)
[2018-01-11] MEDS: SACUBITRIL/VALSARTAN 24 MG-26 MG TAB PO SCH ×2 (08:56→20:55)
[2018-01-11] MEDS: CARVEDILOL 3.125 MG TAB PO SCH ×2 (08:56→20:55)
[2018-01-11] MEDS: PRAVASTATIN SOD 40 MG TAB PO SCH (08:56)
[2018-01-11] MEDS: AZITHROMYCIN INJ 500 MG in SODIUM CHLOR 0.9% 250 ML INJ 250 ML IV SCH (08:57)
[2018-01-11] MEDS: DOCUSATE SODIUM 50 MG/SENNA 8.6 MG TAB PO SCH ×2 (08:57→20:56)
[2018-01-11] MEDS: SODIUM CHLORIDE 0.9% FLUSH 10 ML FLUSH IV FLUSH SCH ×2 (08:57→20:55)
[2018-01-11] MEDS: INSULIN DETEMIR 100 UNITS/ML VIAL SQ SCH (08:58)
--- NOTE | 2018-01-11 13:04 | HHI.PR ---
Subjective Remarks Patient complaint of continuing to have significant weakness Breathing is stable, his blood sugar in a.m. was in the 80s however later on increased 400 we will adjust his Levemir regimen Objective Vitals Vital Signs Date Time Temp Pulse Resp B/P (MAP) Pulse Ox O2 Delivery O2 Flow Rate FiO2 01/11/18 08:00 70 01/11/18 08:00 97.5 71 20 129/75 (93) 92 01/11/18 07:59 97 Nasal Cannula 2.00 01/11/18 04:00 97.8 70 20 121/82 (95) 96 01/11/18 03:41 70 01/11/18 00:06 70 01/11/18 00:00 Nasal Cannula 2.00 01/11/18 00:00 97.2 69 20 142/85 (104) 98 01/10/18 20:00 Nasal Cannula 2.00 01/10/18 20:00 97.5 70 20 135/83 (100) 97 01/10/18 19:43 70 01/10/18 19:39 95 Nasal Cannula 4.00 01/10/18 16:00 72 01/10/18 16:00 97.7 71 20 124/72 (89) 99 01/10/18 16:00 Nasal Cannula 2.00 I/O 01/10/18 01/10/18 01/10/18 01/11/18 01/11/18 01/11/18 07:00 15:00 23:00 07:00 15:00 23:00 Intake Total 240 ml 480 ml 480 ml Output Total 0 ml 700 ml 600 ml Balance 240 ml -220 ml -120 ml Intake Oral 240 ml 480 ml 480 ml Output Urine Total 0 ml 700 ml 600 ml # Bowel Movements 1 2 Result Diagram: 01/10/18 0801 01/10/18 0819 Objective Remarks GENERAL: This is a well-nourished, well-developed patient, in no apparent distress. SKIN: No rashes, warm and dry HEAD: Atraumatic. Normocephalic. EYES: PERRLA . No scleral icterus. ENT: No bleeding, or drainage, Airway patent. NECK: Trachea midline. Supple CARDIOVASCULAR: RRR, no gallops, or rubs. RESPIRATORY: Fair air entry bilaterally. No W, R, or R GASTROINTESTINAL: Abdomen soft, non-tender, nondistended. Positive bowel sounds MUSCULOSKELETAL: Extremities without clubbing, cyanosis, or edema. Pedal pulses appreciated NEUROLOGICAL: Awake and alert. Moves all extremity. Normal speech.no focal neurological deficit Procedures None A/P Assessment and Plan 01/10: Continue antibiotic per ID, WBC 12 K with 93% left shift. Blood glucose still uncontrolled I will resume his Levemir at 12 units twice daily and continue covering with insulin sliding scale 01/11: Change Levemir to 10 units at night, 12 units in a.m., continue Accu-Chek every 4 hours with ISS, wean O2, home O2 test in a.m., I asked PT to reassess patient need a discharge, change steroid to prednisone, A1c is 8.6, patient needs tighter blood glucose control 1. Pneumonia: Appreciate pulmonology, infectious disease recommendations. Continue antibiotics per infectious disease recommendations. Mycoplasma antigen positive. Supplemental oxygen as needed. 2. Acute hypoxemic respiratory failure: Resolved. Stable on room air at this time. Continue bronchodilators, steroids. Appreciate pulmonology recommendations. 3. Coronary artery disease: Status post CABG in 1996. Currently asymptomatic. Continue statin. 4. Chronic systolic congestive heart failure: Echocardiogram shows ejection fraction less than 20%. Monitor strict intake/output. BNP is significantly elevated. 5. Diabetes mellitus: Levemir on hold. Monitor Accu-Cheks and cover with sliding scale insulin. 6. GI prophylaxis: Famotidine. 7. DVT prophylaxis: SCDs, heparin. 8. Generalized weakness: Continue physical therapy. Ally Beltran MD Jan 11, 2018 13:04
[2018-01-11] MEDS: cefTRIAXone INJ 2,000 MG in SODIUM CHLORIDE 0.9% INJ 100 ML IV SCH (15:19)
[2018-01-11] MEDS ORDERED: INSULIN DETEMIR 100 UNITS/ML VIAL SQ SCH (21:00)
[2018-01-12] VITALS (12 sets, daily range): BP systolic 118–147; BP diastolic 60–91; PULSE 69–93; RESP 18; TEMP 97.2–98.5; O2SAT 95–98
[2018-01-12] MEDS: RESP: ALBUTEROL 2.5 MG/IPRATROPIUM 0.5 MG NEB (SCH) NEB ×3 (01:04→08:32)
[2018-01-12] MEDS: INSULIN NovoLIN REGULAR SUPPLEMENTAL SCALE SQ SCH ×6 (04:00→20:59)
[2018-01-12] MEDS: CHLORHEXIDINE GLUCONATE 2 % 1 PACK (2 CLOTHS) TOP SCH (04:00)
[2018-01-12] MEDS: HEPARIN SODIUM - SQ 10,000 UNITS/ML VIAL SQ SCH ×3 (06:07→21:03)
[2018-01-12] MEDS ORDERED: INSULIN DETEMIR 100 UNITS/ML VIAL SQ SCH ×2 (07:00→21:00)
[2018-01-12] MEDS: CHLORHEXIDINE 0.12% (ORAL KIT) 15 ML CUP MT SCH (08:00)
[2018-01-12] MEDS ORDERED: methylPREDNISolone SOD SUCC 40 MG/1 ML VIAL IV PUSH SCH (09:00)
[2018-01-12] MEDS ORDERED: predniSONE 20 MG TAB PO SCH (09:00)
[2018-01-12] MEDS: CARVEDILOL 3.125 MG TAB PO SCH ×2 (09:18→21:03)
[2018-01-12] MEDS: SACUBITRIL/VALSARTAN 24 MG-26 MG TAB PO SCH ×2 (09:18→21:03)
[2018-01-12] MEDS: PRAVASTATIN SOD 40 MG TAB PO SCH (09:18)
[2018-01-12] MEDS: DOCUSATE SODIUM 50 MG/SENNA 8.6 MG TAB PO SCH ×2 (09:18→21:00)
[2018-01-12] MEDS: ALLOPURINOL 100 MG TAB PO SCH (09:18)
[2018-01-12] MEDS: SODIUM CHLORIDE 0.9% FLUSH 10 ML FLUSH IV FLUSH SCH ×2 (09:19→21:04)
[2018-01-12] MEDS: FAMOTIDINE 20 MG/2 ML VIAL IV PUSH SCH (09:19)
[2018-01-12] MEDS: AZITHROMYCIN INJ 500 MG in SODIUM CHLOR 0.9% 250 ML INJ 250 ML IV SCH (09:20)
--- NOTE | 2018-01-12 11:08 | HHI.IDPN ---
Subjective Subjective Remarks Patient is an 82-year-old male, presented initially at the emergency room on December 30 complaining of 3 day history of cough and shortness of breath. He was bringing up some brownish phlegm. Evaluation in the emergency room revealed infiltrates on the right side. He was not febrile. Observation was recommended to the patient but she did not want to stay in the hospital and so the patient was given antibiotics and was sent home. On the day of admission he apparently had severe shortness of breath, and EMS was called and he ended up getting intubated. His chest x-ray this time is showing infiltrates on the left side, and the infiltrate on the right side has been improving. The patient has a remote history of lung carcinoma and underwent partial resection of the right upper lung in the . He quit smoking 30 years ago. He notes subjective fevers and occasional diarrhea but denies any nausea, vomiting, or abdominal pain. . The patient's symptoms are mild to moderate, there are no current alleviating or exacerbating factors. He denies any diffuse myalgias, arthralgias, or lower extremity edema. He denies any history of pulmonary embolism or DVT. Patient has been on the vent. His white count remains elevated. Infectious disease consultation has been requested to evaluate the patient. Notes reviewed patient is afebrile, VSS SOB is still the same with occasional cough with frothy sputum production - Patient not on oxygen at home prior to admission. Quit smoking 30yrs ago. hoarseness, chronic with hx of throat cancer 5 yrs ago reports dysuria, denies any hematuria denies any loose stools today white count slightly bumped up to 12.2 Bandemia resolved BNP greater than 5000 passed swallow eval, takes po Antibiotics Rocephin Zithromax Lines Line with no evidence of infection Past Medical History COPD Lung cancer status post right upper lobectomy Vocal Cord squamous cell CA, S/P XRT, completed Rx 2010, followed by Dr Marina and Dr Sosa, last seen Jun 2017 and no recurrence History of bladder cancer, S/P TURBT Diabetes mellitus Coronary artery disease status post CABG Hypertension Atrial fibrillation Congestive heart failure Status postcardiac ablation Past Surgical History AICD placement TURBT Vocal Cord biopsy RUL lobectomy CABG (Nancy Romero) Allergies: Coded Allergies: No Known Allergies (Verified Adverse Reaction, Unknown, 01/04/18) Objective . Vital Signs Date Time Temp Pulse Resp B/P (MAP) Pulse Ox O2 Delivery O2 Flow Rate FiO2 01/12/18 10:43 Nasal Cannula 2.00 01/12/18 08:35 96 Nasal Cannula 1.00 01/12/18 08:01 97.2 70 18 147/91 (109) 98 01/12/18 04:00 Nasal Cannula 2.00 01/12/18 04:00 70 01/12/18 04:00 98.2 70 18 124/67 (86) 98 01/12/18 00:00 Nasal Cannula 2.00 01/12/18 00:00 97.4 69 18 142/85 (104) 98 01/12/18 00:00 70 01/11/18 20:00 72 01/11/18 20:00 Nasal Cannula 2.00 01/11/18 20:00 98.0 71 18 135/73 (93) 94 01/11/18 19:53 98 Nasal Cannula 2.00 01/11/18 16:00 97.7 70 20 128/74 (92) 100 01/11/18 16:00 Nasal Cannula 2.00 01/11/18 16:00 70 01/11/18 12:00 70 01/11/18 12:00 97.3 70 20 112/57 (75) 99 01/11/18 12:00 Nasal Cannula 2.00 . Laboratory Tests Test 01/10/18 08:01 01/10/18 08:19 White Blood Count 12.2 TH/MM3 Red Blood Count 4.43 MIL/MM3 Hemoglobin 11.0 GM/DL Hematocrit 35.2 % Mean Corpuscular Volume 79.4 FL Mean Corpuscular Hemoglobin 24.9 PG Mean Corpuscular Hemoglobin Concent 31.3 % Red Cell Distribution Width 19.3 % Platelet Count 163 TH/MM3 Mean Platelet Volume 8.4 FL Neutrophils (%) (Auto) 93.4 % Lymphocytes (%) (Auto) 1.7 % Monocytes (%) (Auto) 4.8 % Eosinophils (%) (Auto) 0.0 % Basophils (%) (Auto) 0.1 % Neutrophils # (Auto) 11.4 TH/MM3 Lymphocytes # (Auto) 0.2 TH/MM3 Monocytes # (Auto) 0.6 TH/MM3 Eosinophils # (Auto) 0.0 TH/MM3 Basophils # (Auto) 0.0 TH/MM3 CBC Comment DIFF FINAL Differential Comment Blood Urea Nitrogen 31 MG/DL Creatinine 1.21 MG/DL Random Glucose 204 MG/DL Calcium Level 8.1 MG/DL Sodium Level 142 MEQ/L Potassium Level 4.6 MEQ/L Chloride Level 106 MEQ/L Carbon Dioxide Level 25.1 MEQ/L Anion Gap 11 MEQ/L Estimat Glomerular Filtration Rate 58 ML/MIN Imaging Last Impressions Chest X-Ray 01/08/18 0600 Signed Impressions: Service Date/Time: December 03:52 - CONCLUSION: Persistent left lower lobe consolidation and small right pleural effusion. Wade Irizarry MD Physical Exam GENERAL: Well developed, well nourished elderly male, I[place]D. Awake and alert, Appears comfortable. [place]. is at the bedside. SKIN: Warm and dry. No generalized rash, no ecchymoses and no evidence of embolic lesions. CARDIOVASCULAR: Regular rate and rhythm. No murmurs, rubs or gallops heard. Pacemaker site with no e/o infection. RESPIRATORY: Clear to auscultation. Breath sounds equal bilaterally. No rales , wheezing or rhonchi ABDOMEN: Soft, non-tender, nondistended. Bowel sounds present and normoactive. EXTREMITIES: No clubbing or cyanosis. Trace to 1+ edema RLE, chronic ppr s/p multiple stent procedures. Well perfused and warm. Calves NTTP. NEUROLOGICAL: Awake and alert. Cranial nerves grossly intact. Motor grossly within normal limits. PSYCHIATRIC: Normal affect and mood, calm and cooperative. LINE: No evidence of infection (Nancy Romero) Assessment & Plan Remarks IMPRESSION Pneumonia, CAP Mycoplasma antigen positive C pneumoniae with elevated titer Respiratory failure, resolved COPD Hx RUL lobectomy, Hx vocal cord CA, S/P XRT Sputum cx with light growth of normal respiratory shanna Bandemia, resolved Leukocytosis, white count with slight bump up to 12.2 - likely steroid rxn. Dysuria Abx associated diarrhea, improved. C diff negative Persistent SOB, ?CHF exacerbation vs worsening of PNA vs COPD exacerbation -afebrile -Repeat CXR ordered -BNP greater than 5000. Started on IV Lasix. -Pulmonary following, cardiology consulted RECOMMENDATION Repeat CXR Repeat BNP in am Continue on Rocephin and Zithromax - will plan to deescalate IV antibiotics pending CXR results and clinical course Obtain UA specimen Continue to monitor respiratory status Pending clinical course (Nancy Romero) Remarks The exam, history, and the medical decision-making described in the above note were completed with the assistance of the mid-level provider. I reviewed the historical facts with patient again, along with pertinent ROS and performed an independent physical examination. I agree with the findings presented. I attest that I had a [id number] encounter with the patient on the same day, and personally performed and documented my assessment/plan and findings in the medical record. Continues to feel Short of breath with minimal exertion. Pedal edema Decreased AE and basilar crackles on exam Pleasant man, cooperative. BNP elevated, CXR with left effusion, clinically symptomatic: dw not ready for DC home yet. Agree with Cardio consult, recommend diuretics. Continue IV rocephin and Zithromax for now. to resume care in am (Pat Stratton MD) Nancy Romero Jan 12, 2018 11:08 Pat Stratton MD Jan 12, 2018 21:32
[2018-01-12] MEDS ORDERED: LEVEMIR SQ ×4 (11:12→11:17)
[2018-01-12] MEDS ORDERED: NOVORP2 SQ (11:12)
[2018-01-12] MEDS ORDERED: PRED5PAK PO (11:25)
[2018-01-12] MEDS ORDERED: LEVA750T9 PO (11:25)
--- NOTE | 2018-01-12 14:03 | RADRPT ---
EXAM DATE/TIME: 01/12/2018 13:19 [facility] COMPARISON: CHEST SINGLE AP, January 08, 2018, 3:52. INDICATIONS : Infiltrate. MEDICAL HISTORY : Hypertension. Chronic obstructive pulmonary disease. Diabetes mellitus type II. CAD, Carcinoma colin ng, SURGICAL HISTORY : Pacemaker. CABG. ENCOUNTER: Initial ACUITY: 2 weeks PAIN SCORE: 0/10 LOCATION: Bilateral chest FINDINGS: A single AP erect portable view of the chest was obtained and again demonstrates the patient is statu s post median sternotomy. The left subclavian AV sequential transvenous pacer remains in place. There is patchy opacity again noted in the left lung base with partial obscuration of left hemidiaphragm. The right lung is clear. The heart size is mildly prominent. The bony thorax is intact. The left cost ophrenic angle may be mildly blunted. There is no distinct perihilar edema. CONCLUSION: Patchy opacity remains at the left lung base with possible left effusion. Danny Schmidt MD on January 12, 2018 at 13:59 Board Certified Radiologist. This report was verified electronically.
--- NOTE | 2018-01-12 14:03 | HHI.PR ---
Subjective Remarks Patient resting comfortably in bed at the bedside He stated he breathing okay, afebrile I discussed with ID and pulmonology their plan is to repeat chest x-ray and monitor patient, BMP increased I restarted Lasix and per discussion with pulmonology will consult cardiology Objective Vitals Vital Signs Date Time Temp Pulse Resp B/P (MAP) Pulse Ox O2 Delivery O2 Flow Rate FiO2 01/12/18 12:00 97.8 70 18 118/67 (84) 98 01/12/18 10:43 Nasal Cannula 2.00 01/12/18 08:35 96 Nasal Cannula 1.00 01/12/18 08:01 97.2 70 18 147/91 (109) 98 01/12/18 04:00 Nasal Cannula 2.00 01/12/18 04:00 70 01/12/18 04:00 98.2 70 18 124/67 (86) 98 01/12/18 00:00 Nasal Cannula 2.00 01/12/18 00:00 97.4 69 18 142/85 (104) 98 01/12/18 00:00 70 01/11/18 20:00 72 01/11/18 20:00 Nasal Cannula 2.00 01/11/18 20:00 98.0 71 18 135/73 (93) 94 01/11/18 19:53 98 Nasal Cannula 2.00 01/11/18 16:00 97.7 70 20 128/74 (92) 100 01/11/18 16:00 Nasal Cannula 2.00 01/11/18 16:00 70 I/O 01/11/18 01/11/18 01/11/18 01/12/18 01/12/18 01/12/18 07:00 15:00 23:00 07:00 15:00 23:00 Intake Total 480 ml 480 ml Output Total 600 ml 400 ml Balance -120 ml 480 ml -400 ml Intake Oral 480 ml 480 ml Output Urine Total 600 ml 400 ml # Voids 3 # Bowel Movements 0 Result Diagram: 01/10/18 0801 01/10/18 0819 Objective Remarks GENERAL: This is a well-nourished, well-developed patient, in no apparent distress. SKIN: No rashes, warm and dry HEAD: Atraumatic. Normocephalic. EYES: PERRLA . No scleral icterus. ENT: No bleeding, or drainage, Airway patent. NECK: Trachea midline. Supple CARDIOVASCULAR: RRR, no gallops, or rubs. RESPIRATORY: Fair air entry bilaterally. No W, R, or R GASTROINTESTINAL: Abdomen soft, non-tender, nondistended. Positive bowel sounds MUSCULOSKELETAL: Extremities without clubbing, cyanosis, or edema. Pedal pulses appreciated NEUROLOGICAL: Awake and alert. Moves all extremity. Normal speech.no focal neurological deficit Procedures None A/P Assessment and Plan 01/10: Continue antibiotic per ID, WBC 12 K with 93% left shift. Blood glucose still uncontrolled I will resume his Levemir at 12 units twice daily and continue covering with insulin sliding scale 01/11: Change Levemir to 10 units at night, 12 units in a.m., continue Accu-Chek every 4 hours with ISS, wean O2, home O2 test in a.m., I asked PT to reassess patient need a discharge, change steroid to prednisone, A1c is 8.6, patient needs tighter blood glucose control 01/12: I discussed with ID and pulmonology their plan is to repeat chest x-ray and monitor patient, BMP increased I restarted Lasix and per discussion with pulmonology will consult cardiology 1. Pneumonia: Appreciate pulmonology, infectious disease recommendations. Continue antibiotics per infectious disease recommendations. Mycoplasma antigen positive. Supplemental oxygen as needed. 2. Acute hypoxemic respiratory failure: Resolved. Stable on room air at this time. Continue bronchodilators, steroids. Appreciate pulmonology recommendations. 3. Coronary artery disease: Status post CABG in 1996. Currently asymptomatic. Continue statin. 4. Chronic systolic congestive heart failure: Echocardiogram shows ejection fraction less than 20%. Monitor strict intake/output. BNP is significantly elevated. 5. Diabetes mellitus: Levemir on hold. Monitor Accu-Cheks and cover with sliding scale insulin. 6. GI prophylaxis: Famotidine. 7. DVT prophylaxis: SCDs, heparin. 8. Generalized weakness: Continue physical therapy. Ally Beltran MD Jan 12, 2018 14:03
[2018-01-12] MEDS: cefTRIAXone INJ 2,000 MG in SODIUM CHLORIDE 0.9% INJ 100 ML IV SCH (14:29)
[2018-01-12 17:08] LABS: BILIRUBIN, URINE NEG (NEG); BLOOD, URINE TRACE (NEG); GLUCOSE,URINE NEG (NEG); KETONE, URINE NEG (NEG); NITRITE,URINE NEG (NEG); PH, URINE 6.5 (5.0-8.5); SQUAMOUS EPITHELIAL CELL URINE 1 /hpf (0-5); URINE COLOR YELLOW (YELLW/STRAW); URINE LEUKOCYTE ESTERASE NEG (NEG)
[2018-01-12] MEDS ORDERED: FUROSEMIDE 40 MG/4 ML VIAL IV PUSH SCH (18:00)
[2018-01-12] MEDS: RESP: ALBUTEROL 2.5 MG/IPRATROPIUM 0.5 MG NEB (SCH) INH (19:43)
[2018-01-12] MEDS: FAMOTIDINE 20 MG TAB PO SCH (21:02)
[2018-01-13] VITALS (7 sets, daily range): BP systolic 104–126; BP diastolic 55–68; PULSE 67–87; RESP 18–20; TEMP 98–98.3; O2SAT 96–97
[2018-01-13] MEDS: INSULIN NovoLIN REGULAR SUPPLEMENTAL SCALE SQ SCH ×5 (00:23→17:52)
[2018-01-13] MEDS: CHLORHEXIDINE GLUCONATE 2 % 1 PACK (2 CLOTHS) TOP SCH (03:46)
[2018-01-13] MEDS: HEPARIN SODIUM - SQ 10,000 UNITS/ML VIAL SQ SCH ×2 (05:54→15:37)
[2018-01-13 06:59] LABS: BICARBONATE 29.7 MEQ/L (21.0-32.0); CALCIUM 8.4 MG/DL (8.5-10.1); CREATININE 1.09 MG/DL (0.60-1.30); MAGNESIUM 2.3 MG/DL (1.5-2.5); PHOSPHORUS 3.9 MG/DL (2.5-4.9)
[2018-01-13] MEDS ORDERED: INSULIN DETEMIR 100 UNITS/ML VIAL SQ SCH (07:00)
--- NOTE | 2018-01-13 08:32 | MB ---
cc: Arik Horan MD DATE: 01/12/2018 REFERRING PHYSICIAN: Dr. Beltran REASON FOR CONSULTATION: Management of cardiomyopathy in the setting of pneumonia and respiratory failure. HISTORY OF PRESENT ILLNESS: Mr. Vázquez is an 82-year-old gentleman well known to me. He does have CAD, status post bypass in 1995, with underlying atrial fibrillation with AV node ablation and Bi-V ICD. He does have ischemic cardiomyopathy. Most recent echocardiogram was done October 2017, showed EF from 10-15%, with moderate to severe MR. He also has Bi-V ICD. He does have also history of throat cancer, bladder cancer and lung cancer. He was admitted for pneumonia and went home, then came back with respiratory failure, got intubated, currently extubated. He is currently on Lasix 40 mg daily with good diuresis. No significant volume overload. BNP has improved. Again, he is extubated, is comfortable on O2. He did have GI bleeding and off anticoagulation. Currently medication including Lasix 40 mg daily, Coreg 3.125 mg b.i.d., Entresto . He was tried on Entresto, but unfortunately at home, he could not afford the medication. He is on pravastatin 40 mg daily. Currently rate is in the 70s with Bi-V pacing. PAST MEDICAL HISTORY: As above. ALLERGIES: NO KNOWN DRUG ALLERGIES. MEDICATIONS: As above. REVIEW OF SYSTEMS: HEENT: Normal. GASTROINTESTINAL: No nausea or vomiting. GENITOURINARY: No dysuria. MUSCULOSKELETAL: Fatigue. CVS: As above. CHEST: Some dyspnea. ENDOCRINE: Normal. SKIN: Normal. PSYCHIATRIC: Normal. CENTRAL NERVOUS SYSTEM: No dizziness. PAST SURGICAL HISTORY: As above. PHYSICAL EXAMINATION: VITAL SIGNS: The patient has blood pressure of 130/60, with pulse in the 70s, with O2 saturation 98% on O2. HEENT: Normal oral exam, PERRLA. NECK: There is no thyroid enlargement. LYMPHATIC: No lymphadenopathy. RESPIRATORY: Decreased breath sounds at the right lung, but no wheezing. No significant crackles. CARDIOVASCULAR: Decreased S1, S2. Left-sided ICD incision well healed. No loud murmurs. ABDOMEN: Active bowel sounds over 4 quadrants, distended, but no tenderness. GENITOURINARY: Deferred. MUSCULOSKELETAL: Range of motion intact. SKIN: There is no significant pitting edema. PSYCHIATRIC: The patient in good mood, good judgment. NEUROLOGIC: There is no focal neurologic deficits. TESTS: So far potassium 3.9, creatinine 1.21. WBC of 12.2, hematocrit 35. ASSESSMENT: 1. Chronic systolic congestive heart failure, [place] Heart Association class 3 at baseline, with EF 10-15%. 2. Moderate to severe mitral regurgitation. 3. Pneumonia with respiratory failure, improving. 4. History of lung cancer, throat cancer and bladder cancer. 5. Coronary artery disease, status post bypass, currently on statin therapy. PLAN: So far, he looks much better. I will continue Coreg 3.125 mg b.i.d. I will continue Entresto. Hopefully, he can afford that medication at home. I will switch him to Bumex tomorrow 1 mg b.i.d. I do think the patient is okay to go ahead with rehab in the next few weeks. I do think that the patient would benefit from a cardiopulmonary rehabilitation. He does have moderate to severe . I do think that cardiomyopathy and MR could have contributed to his respiratory failure too. From cardiac point of view, he is stable to be discharged to rehab and I do think he will benefit from cardiopulmonary rehabilitation also. Thank you, Ruby, for letting me participate in the care of Mr. Vázquez. MD KRISTOPHER Arciniega/KARLY , 06:55 PM , 07:28 PM
[2018-01-13] MEDS: AZITHROMYCIN INJ 500 MG in SODIUM CHLOR 0.9% 250 ML INJ 250 ML IV SCH (08:43)
[2018-01-13] MEDS: PRAVASTATIN SOD 40 MG TAB PO SCH (08:45)
[2018-01-13] MEDS: FAMOTIDINE 20 MG TAB PO SCH (08:45)
[2018-01-13] MEDS: CARVEDILOL 3.125 MG TAB PO SCH (08:45)
[2018-01-13] MEDS: ALLOPURINOL 100 MG TAB PO SCH (08:45)
[2018-01-13] MEDS: SACUBITRIL/VALSARTAN 24 MG-26 MG TAB PO SCH (08:45)
[2018-01-13] MEDS: DOCUSATE SODIUM 50 MG/SENNA 8.6 MG TAB PO SCH (08:46)
[2018-01-13] MEDS: SODIUM CHLORIDE 0.9% FLUSH 10 ML FLUSH IV FLUSH SCH (08:46)
[2018-01-13] MEDS ORDERED: predniSONE 20 MG TAB PO SCH (09:00)
[2018-01-13] MEDS ORDERED: BUMETANIDE 1 MG TAB PO SCH ×2 (09:00→10:00)
[2018-01-13] MEDS ORDERED: TORSEMIDE 20 MG TAB PO SCH (09:00)
[2018-01-13] MEDS: RESP: ALBUTEROL 2.5 MG/IPRATROPIUM 0.5 MG NEB (SCH) INH (12:53)
--- NOTE | 2018-01-13 13:40 | HHI.IDPN ---
Subjective Subjective Remarks Patient is an 82-year-old male, presented initially at the emergency room on December 30 complaining of 3 day history of cough and shortness of breath. He was bringing up some brownish phlegm. Evaluation in the emergency room revealed infiltrates on the right side. He was not febrile. Observation was recommended to the patient but she did not want to stay in the hospital and so the patient was given antibiotics and was sent home. On the day of admission he apparently had severe shortness of breath, and EMS was called and he ended up getting intubated. His chest x-ray this time is showing infiltrates on the left side, and the infiltrate on the right side has been improving. The patient has a remote history of lung carcinoma and underwent partial resection of the right upper lung in the . He quit smoking 30 years ago. He notes subjective fevers and occasional diarrhea but denies any nausea, vomiting, or abdominal pain. . The patient's symptoms are mild to moderate, there are no current alleviating or exacerbating factors. He denies any diffuse myalgias, arthralgias, or lower extremity edema. He denies any history of pulmonary embolism or DVT. Patient has been on the vent. His white count remains elevated. Infectious disease consultation has been requested to evaluate the patient. Notes reviewed Temps ok Extunated and doing well On RA, has good sats Good diuresis Bandemia resolved BNP greater than 5000 passed swallow eval, takes po cardiology notes reviewed CXR stable Antibiotics Rocephin Zithromax Current Medications Medications (Trade) Dose Ordered Sig/Yaakov Route Start Time Stop Time Status Last Admin (Zyloprim) 100 mg DAILY PO 01/04/18 09:00 01/13/18 08:45 (Coreg) 3.125 mg BID PO 01/04/18 09:00 01/13/18 08:45 (Proscar) 5 mg DAILY PO 01/04/18 09:00 Future Hold 01/05/18 09:04 (Entresto 24-26 Mg) 1 tab BID PO 01/04/18 09:00 01/13/18 08:45 (Flomax) 0.4 mg HS PO 01/04/18 21:00 Future Hold 01/05/18 22:25 (Pravachol) 40 mg DAILY PO 01/04/18 09:00 01/13/18 08:45 (NS Flush) 2 ml UNSCH PRN IV FLUSH 01/04/18 06:00 01/11/18 05:23 (NS Flush) 2 ml BID IV FLUSH 01/04/18 09:00 01/13/18 08:46 (Tylenol) 650 mg Q6H PRN PO 01/04/18 06:00 (Zofran Inj) 4 mg Q6H PRN IV PUSH 01/04/18 06:00 (Restoril) 15 mg HS PRN PO 01/04/18 06:00 Future hold 01/07/18 21:55 (Duoneb Neb) 1 ampule Q2HR NEB PRN INH 01/04/18 06:00 01/12/18 12:15 (Heparin Inj) 5,000 units Q8H SQ 01/04/18 06:00 01/13/18 05:54 Miscellaneous Information 1 Q361D XX 01/04/18 06:00 (Chlorhexidine 2% Cloth) Taper DAILY@04 TOP 01/05/18 04:00 01/01/19 03:59 01/09/18 04:00 (Chlorhexidine 2% Cloth) 3 pack UNSCH PRN TOP 01/04/18 06:00 (Azra-Colace) 1 tab BID PO 01/04/18 09:00 01/13/18 08:46 (Milk Of Magnesia Liq) 30 ml Q12H PRN PO 01/04/18 06:00 (Senokot) 17.2 mg Q12H PRN PO 01/04/18 06:00 (Dulcolax Supp) 10 mg DAILY PRN RECTAL 01/04/18 06:00 (Lactulose Liq) 30 ml DAILY PRN PO 01/04/18 06:00 Azithromycin 500 mg/Sodium Chloride 250 ml @ 250 mls/hr Q24H IV 01/04/18 08:00 01/13/18 08:43 (Brethine Inj) 1 mg UNSCH PRN SQ 01/05/18 10:45 Ceftriaxone Sodium 2000 mg/ Sodium Chloride 100 ml @ 200 mls/hr Q24H IV 01/06/18 15:00 01/12/18 14:29 (D50w (Vial) Inj) 50 ml UNSCH PRN IV PUSH 01/08/18 08:15 (Glucagon Inj) 1 mg UNSCH PRN OTHER 01/08/18 08:15 (NovoLIN R SUPPLEMENTAL SCALE) 1 Q4HR SQ 01/08/18 08:15 01/13/18 00:23 (Levemir Inj) 10 units HS SQ 01/12/18 21:00 01/12/18 21:00 (Levemir Inj) 5 units AC BREAKFAST SQ 01/13/18 07:00 (Pepcid) 20 mg Q12HR PO 01/12/18 21:00 01/13/18 08:45 (Duoneb Neb) 1 ampule TID NEB INH 01/12/18 14:00 01/13/18 12:53 (Deltasone) 20 mg DAILY PO 01/13/18 09:00 01/13/18 08:46 (Demadex) 20 mg BID PO 01/13/18 09:00 01/13/18 08:45 (Bumetanide) 1 mg BID PO 01/13/18 10:00 01/13/18 12:30 Lines Line with no evidence of infection Past Medical History COPD Lung cancer status post right upper lobectomy Vocal Cord squamous cell CA, S/P XRT, completed Rx 2010, followed by Dr Marina and Dr Sosa, last seen Jun 2017 and no recurrence History of bladder cancer, S/P TURBT Diabetes mellitus Coronary artery disease status post CABG Hypertension Atrial fibrillation Congestive heart failure Status postcardiac ablation Past Surgical History AICD placement TURBT Vocal Cord biopsy RUL lobectomy CABG Allergies: Coded Allergies: No Known Allergies (Verified Adverse Reaction, Unknown, 01/04/18) Objective . Vital Signs Date Time Temp Pulse Resp B/P (MAP) Pulse Ox O2 Delivery O2 Flow Rate FiO2 01/13/18 11:12 96 21 01/13/18 08:00 98.0 71 20 121/67 (85) 97 01/13/18 08:00 1.00 01/13/18 04:08 72 01/13/18 04:00 98.2 70 18 126/68 (87) 96 01/13/18 00:00 98.1 70 18 109/59 (76) 97 01/13/18 00:00 Room Air 01/12/18 23:45 70 01/12/18 20:50 98.5 70 18 140/72 (94) 98 01/12/18 19:49 70 01/12/18 19:45 Nasal Cannula 2.00 01/12/18 19:45 95 01/12/18 16:01 98.2 70 18 130/60 (83) 96 01/12/18 16:00 70 01/13/18 01/13/18 01/14/18 15:00 23:00 07:00 # Bowel Movements 1 . Laboratory Tests Test 01/13/18 05:12 Blood Urea Nitrogen 24 MG/DL Creatinine 1.09 MG/DL Random Glucose 79 MG/DL Calcium Level 8.4 MG/DL Phosphorus Level 3.9 MG/DL Magnesium Level 2.3 MG/DL Sodium Level 141 MEQ/L Potassium Level 3.3 MEQ/L Chloride Level 103 MEQ/L Carbon Dioxide Level 29.7 MEQ/L Anion Gap 8 MEQ/L Estimat Glomerular Filtration Rate 65 ML/MIN B-Type Natriuretic Peptide GREATER THAN 5000 PG/ML Microbiology Date/Time Source Procedure Growth Status 01/12/18 15:10 Urine Clean Catch Urine Culture - Preliminary Ericka Albicans Resulted Imaging Last Impressions Chest X-Ray 01/08/18 0600 Signed Impressions: Service Date/Time: December 03:52 - CONCLUSION: Persistent left lower lobe consolidation and small right pleural effusion. Wade Irizarry MD Physical Exam GENERAL: NAD. Awake and alert, Appears comfortable. SKIN: Warm and dry. No generalized rash, no ecchymoses and no evidence of embolic lesions. HEENT: NO petechia, moist mucosa NECK: NOt tender CARDIOVASCULAR: Regular rate and rhythm. No murmurs, rubs or gallops heard. Pacemaker site with no e/o infection. RESPIRATORY: Clear to auscultation. Breath sounds equal bilaterally. No rales , wheezing or rhonchi ABDOMEN: Soft, non-tender, nondistended. Bowel sounds present and normoactive. EXTREMITIES: No clubbing or cyanosis. Trace to 1+ edema RLE. No calf tenderness NEUROLOGICAL: Non-focal. PSYCHIATRIC: Normal affect and mood, calm and cooperative. LINE: No evidence of infection Assessment & Plan Remarks IMPRESSION Pneumonia, CAP Respiratory failure, extubated CHF COPD Hx RUL lobectomy, Hx voxal cord CA, S/P XRT Leukocytosis, improving - due to PNA and steroids most likely RECOMMENDATION PO ceftin and Zithromax Clinically doing well from ID standpoint Monitor progress Rissa Clancy MD Jan 13, 2018 13:40
--- NOTE | 2018-01-13 15:43 | MD ---
cc: Elio Harry MD DATE OF DISCHARGE: HOSPITAL COURSE: Mr. Vázquez is an 82-year-old white male who presented on 01/04 with respiratory failure, pneumonia. He has a severe cardiomyopathy as well with an EF of 10-15%, but his heart was really quite stable during this admission. He was eventually extubated, transferred to the floor and over the last several days has improved considerably. In fact, on room air now, his sats are 96%. His chest x-ray yesterday revealed minimal residual infiltrate at the left base, but a very large heart, possible mild blunting of the left costophrenic angle, but no significant effusion. Cultures of his sputum revealed normal shanna. Blood cultures were negative. Initial white count was 22,000. By the time of discharge, it was down to 12. Dr. Horan, his striper, saw him yesterday because his BNP was still 5000 and his EF is only 20%. Dr. Horan felt that his cardiovascular status was stable, although he does have a very severe cardiomyopathy. Infectious disease also saw him during the hospitalization. They recommended discharge on Zithromax and Ceftin to complete a course of therapy for his pneumonia. Otherwise, he is stable for discharge from a pulmonary standpoint and I will see him back in the office. MD CARIN Lorenzana/ELI , 02:54 PM , 03:41 PM
[2018-01-13] MEDS ORDERED: ZITH500T PO (18:47)
[2018-01-13] MEDS ORDERED: BUME1TAB PO (18:47)
[2018-01-13] MEDS ORDERED: CEFU1TAB18 PO (18:47)
--- NOTE | 2018-01-13 18:56 | HHI.DS ---
Discharge Summary Admission Date Jan 04, 2018 at 05:56 Discharge Date: Jan 13, 2018 Admitting Diagnosis (1) Congestive heart failure ICD Code: I50.9 - Heart failure, unspecified (2) Acute respiratory failure ICD Code: J96.00 - Acute respiratory failure, unspecified whether with hypoxia or hypercapnia (3) Pneumonia ICD Code: J18.9 - Pneumonia, unspecified organism Procedures Intubation and extubation Brief History - From Admission 82-year-old gentleman who was seen a few days ago at [place] emergency department, with complaints of respiratory distress, diagnosed with pneumonia, at that time he improved and didn't want to be hospitalized and was discharged , returns today with acute respiratory failure, and worsening pneumonia. Per EMT report his O2 sats at home were in 60s and he was intubated in the field for acute respiratory failure. CBC/BMP: 01/10/18 0801 01/13/18 0512 Significant Findings Laboratory Tests Test 01/12/18 15:10 01/13/18 05:12 Urine Occult Blood TRACE (NEG) Urine RBC 71 /hpf (0-3) Urine Yeast (Budding) MANY (NONE) Blood Urea Nitrogen 24 MG/DL (7-18) Calcium Level 8.4 MG/DL (8.5-10.1) Potassium Level 3.3 MEQ/L (3.5-5.1) Estimat Glomerular Filtration Rate 65 ML/MIN (>89) B-Type Natriuretic Peptide GREATER THAN 5000 PG/ML PE at Discharge GENERAL: This is a well-nourished, well-developed patient, in no apparent distress. SKIN: No rashes, warm and dry HEAD: Atraumatic. Normocephalic. EYES: PERRLA . No scleral icterus. ENT: No bleeding, or drainage, Airway patent. NECK: Trachea midline. Supple CARDIOVASCULAR: RRR, no gallops, or rubs. RESPIRATORY: Fair air entry bilaterally. No W, R, or R GASTROINTESTINAL: Abdomen soft, non-tender, nondistended. Positive bowel sounds MUSCULOSKELETAL: Extremities without clubbing, cyanosis, or edema. Pedal pulses appreciated NEUROLOGICAL: Awake and alert. Moves all extremity. Normal speech.no focal neurological deficit Hospital Course 82 years old man admitted to ICU from [place] emergency department with respiratory failure pneumonia and COPD exacerbation he had a history of coronary artery disease and congestive heart failure, patient got intubated in the ICU then extubated patient later on transferred to hospitalist service, ID and plumbing inspector were consulted patient placed on IV antibiotic then cardiology consulted recommended increasing Bumex to twice daily, later on patient stabilized and cleared by ID pulmonology and cardiology to be discharged home on Ceftin and Zithromax with increased Bumex. [id number] encounter performed with the patient on discharge day, as well as physical exam, summary of hospitalization course and postdischarge plan has been D/W the patient. D/W nurse D/W sample case porter. Discharge medications reviewed and printed and signed, post discharge follow up visit with PCP and other specialist as well as Brief hospital course and discharge summary has been placed. Pt Condition on Discharge: Fair Discharge Disposition: Discharge to SNF Discharge Time: > 30 minutes Discharge Instructions DIET: Follow Instructions for: Heart Healthy Diet, Diabetic Diet Activities you can perform: See Additionl Instruction Other Activity Instructions: per PT Follow up Referrals: SNF/[facility]/ with [facility] New Medications: Azithromycin (Zithromax) 500 Mg Tab 500 MG PO DAILY for Infection, #5 TAB 0 Refills Cefuroxime (Ceftin) 250 Mg Tab 250 MG PO BID for PNA, #5 TAB Prednisone (21) 5 mg tab Dose Pack (Prednisone (21) 5 mg tab Dose Pack) 5 Mg Dspk 5 MG PO DIRECTED for Inflammation, #1 DSPK 0 Refills Insulin Detemir Inj (Levemir Inj) 1,000 unit/ 10 ML Vial 5 UNITS SQ AC BREAKFAST for dm for 30 Days, INJECTION Do not mix with any other Insulin. Insulin Detemir Inj (Levemir Inj) 1,000 unit/ 10 ML Vial 10 UNITS SQ HS for dm for 30 Days, INJECTION Do not mix with any other Insulin. Insulin Human Regular Inj (Novolin R Inj) 1,000 Unit/10 Ml Vial 1 UNIT SQ Q4HR for dm for 30 Days, INJECTION Changed Medications: Bumetanide (Bumetanide) 1 Mg Tab 1 MG PO BID, #30 TAB 0 Refills (Changed from: DAILY) Continued Medications: Albuterol Neb (Albuterol Neb) 2.5 Mg/3 Ml Neb 2.5 MG NEB Q4HR NEB PRN for SHORTNESS OF BREATH, #60 NEBULE 0 Refills Allopurinol (Allopurinol) 100 Mg Tab 100 MG PO DAILY for Gout, #30 TAB 0 Refills Carvedilol (Coreg) 3.125 Mg Tab 3.125 MG PO BID, #60 TAB 0 Refills Finasteride (Proscar) 5 Mg Tab 5 MG PO DAILY for Manage Prostate Problems, #30 TAB 0 Refills Do not crush. Nitroglycerin SL (Nitrostat SL) 0.4 Mg Subl 0.4 MG SL DIRECTED PRN for CHEST PAIN, #100 TAB.SL 0 Refills 1 tablet under the tongue as needed for chest pain. Repeat every 5 minutes for a total of 3 DOSES or call 911 if NO relief. Omeprazole (Omeprazole) 20 Mg Tab 20 MG PO DAILY, #30 TAB 0 Refills Sacubitril-Valsartan (Entresto) 24-26 Mg Tab 1 TAB PO BID for Heart Failure, #30 TAB 0 Refills Simvastatin (Simvastatin) 20 Mg Tab 20 MG PO DAILY for Cholesterol Management, #30 TAB 0 Refills Tamsulosin (Flomax) 0.4 Mg Cap 0.4 MG PO HS for Manage Prostate Problems, #30 CAP 0 Refills Ally Beltran MD Jan 13, 2018 18:56
[2018-01-13] MEDS ORDERED: CEFUROXIME AXETIL 500 MG TAB PO SCH (21:00)
[2018-01-14] MEDS ORDERED: AZITHROMYCIN 250 MG TAB PO SCH (09:00)
== END 2018-01-13 18:15 | DRG 208 ==
LOC: NEPC 05:01 → NEDA 05:56 → NEDH 11:00 → HIMW 17:00 → N04B 01-09 22:13
PROVIDERS: ADMIT Hospitalist; ATTEND Hospitalist
PROC: 5A1945Z Respiratory Ventilation, 24-96 Consecutive Hours (ICD-10-PCS; principal; 2018-01-04)
PROC: 0DH67UZ Insertion of Feeding Device into Stomach, Via Natural or Artificial Opening (ICD-10-PCS; 2018-01-04)
DX: J96.01 Acute respiratory failure with hypoxia (principal); J18.9 Pneumonia, unspecified organism; J44.0 Chronic obstructive pulmonary disease with (acute) lower respiratory infection; I11.0 Hypertensive heart disease with heart failure; E87.2 Acidosis; I50.22 Chronic systolic (congestive) heart failure; E11.65 Type 2 diabetes mellitus with hyperglycemia; K52.1 Toxic gastroenteritis and colitis; J44.1 Chronic obstructive pulmonary disease with (acute) exacerbation; I48.91 Unspecified atrial fibrillation; I25.10 Atherosclerotic heart disease of native coronary artery without angina pectoris; E78.00 Pure hypercholesterolemia, unspecified; I25.5 Ischemic cardiomyopathy; R31.9 Hematuria, unspecified; T36.95XA Adverse effect of unspecified systemic antibiotic, initial encounter; I34.0 Nonrheumatic mitral (valve) insufficiency; H91.90 Unspecified hearing loss, unspecified ear; Z95.810 Presence of automatic (implantable) cardiac defibrillator; Z95.1 Presence of aortocoronary bypass graft; Z79.82 Long term (current) use of aspirin; Z90.2 Acquired absence of lung [part of]; Z85.118 Personal history of other malignant neoplasm of bronchus and lung; Z85.51 Personal history of malignant neoplasm of bladder; Z87.891 Personal history of nicotine dependence; Z85.21 Personal history of malignant neoplasm of larynx; Z92.3 Personal history of irradiation; Z79.899 Other long term (current) drug therapy; R19.7 Diarrhea, unspecified
CPT/HCPCS: 36600; 51702; 71045; 76937; 80048; 80053; 80202; 81001; 82550; 82565; 82805; 82948; 83036; 83605; 83690; 83735; 83880; 84100; 84132; 84439; 84443; 84484; 85007; 85025; 85027; 85610; 85730; 86631; 86632; 86738; 87040; 87070; 87086; 87205; 87493; 87641; 93005; 93306; 94002; 94003; 94618; 94640; 94664; 96374; J0456; J0696; J1644; J1815; J1940; J2250; J2370; J2543; J2920; J3010; J3370; J7030; J7040; J7050; J7060; J7512

== ENCOUNTER → 2018-02-27 | Outpatient (CLI) | payer MEDICARE, OTHER ==
[~2018-02-27] MED LIST changes: +BUME1TAB PO; -CARV3.12 PO; +CARV3.125 PO; +CEFU1TAB18 PO; -CEPH500C3 PO; -DUONSOL2 NEB; -FISH1000 PO; -GLYB1TAB50 PO; +GLYB2.5T3 PO; +LEVEMIR SQ; -MACR100C PO; +NOVORP2 SQ; -OMEP20TA OR; +OMEP20TA93 PO; +PRED5PAK PO; +PROS5TAB PO; -PROS5TAB2 PO; -PYRI200T4 PO; +SACU1TAB PO; +SIMV20TA PO; -SIMV40TA PO; -TAMS0.4C67 PO; +TAMS5CAP PO; +ZITH500T PO; -ZITHTAB PO
[2018-02-27 14:05] LABS: BACTERIA, URINE OCC /hpf; BILIRUBIN, URINE NEG (NEG); BLOOD, URINE SMALL (NEG); GLUCOSE,URINE NEG (NEG); KETONE, URINE NEG (NEG); MUCUS URINE FEW /lpf (OCC); NITRITE,URINE NEG (NEG); PH, URINE 5.5 (5.0-8.5); SQUAMOUS EPITHELIAL CELL URINE 1 /hpf (0-5); URINE COLOR YELLOW (YELLW/STRAW); URINE LEUKOCYTE ESTERASE LARGE (NEG); WHITE BLOOD CELL CLUMPS MANY
== END ==
LOC: PLAB 11:58
DX: R30.0 Dysuria (principal)
CPT/HCPCS: 81001; 87086

== ENCOUNTER → 2018-03-12 | Outpatient (CLI) | payer MEDICARE, OTHER ==
[2018-03-12 10:22] LABS: AUTOMATED NEUTROPHIL # 3.6 TH/MM3 (1.8-7.7); BASOPHIL % 0.8 % (0.0-2.0); EOSINOPHIL # 0.1 TH/MM3 (0-0.4); EOSINOPHIL % 2.4 % (0.0-4.0); HEMATOCRIT 37.6 % (39.0-51.0); HEMOGLOBIN 11.8 GM/DL (13.0-17.0); LYMPH % 20.5 % (9.0-44.0); LYMPHOCYTE # 1.1 TH/MM3 (1.0-4.8); MEAN CELL VOLUME 80.4 FL (80.0-100.0); MEAN CORPUSCULAR HEMOGLOBIN 25.3 PG (27.0-34.0); MEAN CORPUSCULAR HGB CONC 31.5 % (32.0-36.0); MONO % 11.7 % (0.0-8.0); MONOCYTE # 0.6 TH/MM3 (0-0.9); NEUT % 64.6 % (16.0-70.0); PLATELET COUNT 181 TH/MM3 (150-450); RED BLOOD COUNT 4.68 MIL/MM3 (4.50-5.90); RED CELL DISTRIBUTION WIDTH 21.4 % (11.6-17.2); WHITE BLOOD COUNT 5.5 TH/MM3 (4.0-11.0)
[2018-03-12 10:23] LABS: ALBUMIN 3.7 GM/DL (3.4-5.0); AST (GOT) 12 U/L (15-37); BICARBONATE 24.6 MEQ/L (21.0-32.0); BLOOD UREA NITROGEN 21 MG/DL (7-18); CALCIUM 8.9 MG/DL (8.5-10.1); CHLORIDE 108 MEQ/L (98-107); CHOLESTEROL 103 MG/DL (120-200); CREATININE 1.41 MG/DL (0.60-1.30); GLOMERULAR FILTRATION RATE 48 ML/MIN (>89); GLUCOSE,FASTING 116 MG/DL (74-99); SODIUM (NA) 144 MEQ/L (136-145)
[2018-03-12 10:35] LABS: ALKALINE PHOSPHATASE 51 U/L (45-117); ALT (GPT) 18 U/L (12-78); CHOLESTEROL/ HDL RATIO 2.77 RATIO; HDL CHOLESTEROL 37.1 MG/DL (40.0-60.0); LDL CHOLESTEROL 46 MG/DL (0-99); TOTAL BILIRUBIN ADULT 0.6 MG/DL (0.2-1.0); TOTAL PROTEIN 7.2 GM/DL (6.4-8.2); TRIGLYCERIDES 102 MG/DL (42-150)
[2018-03-12 14:09] LABS: BILIRUBIN, URINE NEG (NEG); BLOOD, URINE NEG (NEG); GLUCOSE,URINE NEG (NEG); KETONE, URINE NEG (NEG); NITRITE,URINE NEG (NEG); PH, URINE 5.5 (5.0-8.5); SQUAMOUS EPITHELIAL CELL URINE <1 /hpf (0-5); URINE COLOR YELLOW (YELLW/STRAW); URINE LEUKOCYTE ESTERASE SMALL (NEG)
[2018-03-12 17:29] LABS: HEMOGLOBIN A1C 7.3 % (4.3-6.0)
== END ==
LOC: PLAB 06:41
DX: E11.9 Type 2 diabetes mellitus without complications (principal); I10 Essential (primary) hypertension; E78.5 Hyperlipidemia, unspecified; M10.9 Gout, unspecified
CPT/HCPCS: 36415; 80053; 80061; 81001; 82043; 83036; 84443; 84550; 85025